=== PATIENT | male | born 1945 | race Caucasian/White ===

== ENCOUNTER → 2024-05-18 | Outpatient (CLI) | payer MEDICARE ==
--- NOTE | 2024-05-19 08:59 | MR ---
EXAMINATION TYPE: MR cspine/tspine/lspine wo con DATE OF EXAM: 05/18/2024 9:52 PM CLINICAL INDICATION: Male, 78 years old with history of D49.7, M50.10, M48.04, M48.062; PHH, Neck, mi d, and low back pain. pain in all extremities. weakness COMPARISON: None TECHNIQUE: Multi planar, multi sequence imaging was performed utilizing: T1-weighted, T2-weighted, a nd turbo inversion recovery imaging of the cervical and lumbar spine. MR contrast: IV Contrast: cc , None. FINDINGS: CERVICAL: Alignment: The cervical vertebral bodies have preserved heights. Alignment is within normal limits gi yogesh patient positioning. Bones: Scattered Modic endplate changes with osteophytes and disc space narrowing. Multilevel degener ative disc disease is noted and most pronounced at the C5-C7 vertebral levels. Cord: The spinal cord is unremarkable with regards to their signal intensity and morphology. Discs: Multilevel disc desiccation is present. C2-C3: No significant disc pathology. The spinal canal is patent. Bilateral facet and uncovertebral joint arthropathy are present with mild right neural foraminal stenosis. The left neural foramen is p atent. C3-C4: No significant disc pathology. The spinal canal is patent. No neural foraminal stenosis. C4-C5: No significant disc pathology. The spinal canal is patent. No neural foraminal stenosis. C5-C6: No significant disc pathology. The spinal canal is patent. No neural foraminal stenosis. C6-C7: Osteophyte displaces the spinal cord cord signal is felt to be maintained. Suspected CSF fluid is anterior on sagittal imaging series 501 image 10 is not appreciated on axial imaging. No signific ant disc pathology. The spinal canal is patent. No neural foraminal stenosis. C7-T1: No significant disc pathology. The spinal canal is patent. No neural foraminal stenosis. Other: None. THORACIC: No evidence significant spinal canal or neural foraminal stenosis. Spinal cord is within no rmal limits. There is mild scoliosis alignment with apex on the right at T6. LUMBAR: Alignment: The lumbar vertebral bodies have preserved heights mild grade 1 anterolisthesis of L4 and L5. Cord: The conus medullaris and the distal spinal cord appear unremarkable with regards to their signa l intensity and morphology. Bones/Discs: Bone signal is within normal limits. Multilevel degenerative disc disease is noted with osteophyte formation disc space narrowing and facet joint arthropathy throughout the spine. T12-L1: No evidence of significant spinal canal stenosis or neural foraminal stenosis. L1-L2: No evidence of significant spinal canal stenosis or neural foraminal stenosis. L2-L3: No evidence of significant spinal canal stenosis or neural foraminal stenosis. L3-L4: Disc bulge and facet joint arthropathy result in mild spinal canal and moderate right and mode rate to severe left with osteophyte displacing the left exiting nerve. Bilateral neural foraminal ever nosis. L4-L5: Disc bulge and facet joint arthropathy result in mild spinal canal and moderate to severe bila teral neural foraminal stenosis. L5-S1: The disc has a rounded posterior morphology without significant spinal canal stenosis. Facet j oint arthropathy with mild to moderate right and and moderate to severe left neural foraminal stenosi s. Other findings: Bilateral probable high T2 signal cyst. IMPRESSION: Cervical: Moderate cervical spine disc degeneration with associated osteoarthritic changes. No significant neur al foraminal or spinal canal stenosis. Osteophyte at C6-C7 displaces the spinal cord. Cord signal octaviano ntained is maintained. Thoracic: Mild to moderate degeneration changes to the thoracic spine with mild scoliosis apex T6 on the right. Lumbar: 1. Mild grade 1 anterolisthesis of L4 and L5. 2. Mild to moderate degeneration of the lumbar spine with neural foraminal stenosis worse at moderat e to severe bilateral L4-L5 and moderate to severe left L5-S1. And L3-L4 osteophyte displacing the le ft exiting nerve.
== END | disposition home or self-care (01) ==
LOC: RADMRIMAIN 20:15
PROVIDERS: ATTEND Surgery
DX: D49.7 Neoplasm of unspecified behavior of endocrine glands and other parts of nervous system
CPT/HCPCS: 72141; 72146; 72148

== ENCOUNTER → 2024-07-24 | Outpatient (CLI) | payer MEDICARE ==
--- NOTE | 2024-07-24 12:36 | XR ---
EXAMINATION TYPE: XR chest 2V DATE OF EXAM: 07/24/2024 12:07 PM COMPARISON: None. CLINICAL INDICATION: Male, 78 years old with history of R06.02 SOB, TECHNIQUE: XR chest 2V view(s) obtained. FINDINGS: The heart size is normal. The pulmonary vasculature is normal. The lungs are clear. IMPRESSION: 1. No acute pulmonary process. [facility], , 07/24/2024 12:33 PM
--- NOTE | 2024-07-25 11:33 | NM ---
EXAMINATION TYPE: NM pul vent and perfuse DATE OF EXAM: 07/24/2024 CLINICAL INDICATION: Male, 78 years old with history of R06.02 SOB; COMPARISON: NONE TECHNIQUE: Utilizing inhalation of 37.6 mCi Tc 99m DTPA aerosol and intravenous injection of 5.25 mC i of Tc 99m MAA, ventilation and perfusion images are acquired post injection in multiple projections . FINDINGS: Normal radiotracer distribution is noted in the lungs. There is no evidence of mismatched defects. No triple matched defects evident. IMPRESSION: Low probability for pulmonary embolism. [facility], , 07/25/2024 11:31 AM
== END | disposition home or self-care (01) ==
LOC: RADNMMAIN 11:43
PROVIDERS: ATTEND Family Medicine
DX: R06.02 Shortness of breath (principal)
CPT/HCPCS: 71046; 78582; A9540; A9567

== ENCOUNTER 2024-10-27 14:04 | Inpatient (IN) | payer MEDICARE ==
[2024-10-27 15:03] LABS: Basophils # (A) 0.1 k/uL (0-0.2); Basophils % (A) 0 %; Eosinophils # (A) 0.1 k/uL (0-0.7); Eosinophils % (A) 0 %; HCT 29.8 % (39.0-53.0); HGB 9.8 gm/dL (13.0-17.5); Hypochromasia Moderate; Lymphocytes # (A) 0.4 k/uL (1.0-4.8); Lymphocytes % (A) 2 %; MCH 35.3 pg (25.0-35.0); MCHC 32.9 g/dL (31.0-37.0); MCV 107.1 fL (80.0-100.0); Macrocytosis Moderate; Mean Platelet Volume 8.7; Monocytes # (A) 0.9 k/uL (0-1.0); Monocytes % (A) 3 %; Neutrophils # (A) 24.4 k/uL (1.3-7.7); Neutrophils % (A) 94 %; Platelet Count 156 k/uL (150-450); RBC 2.78 m/uL (4.30-5.90); RDW 14.7 % (11.5-15.5)
[2024-10-27] MEDS: ONDANSETRON 4 MG/2 ML VIAL IM STA (15:03)
[2024-10-27] MEDS: SODIUM CHLORIDE 0.9% 1,000 ML IV STA (15:03)
[2024-10-27 15:13] LABS: INR 0.9 (<1.2); Partial Thromboplastin Time 22.8 sec (22.0-30.0); Prothrombin Time 10.2 sec (10.0-12.5)
[2024-10-27 15:21] LABS: ALT 32 U/L (4-49); AST 92 U/L (17-59); African American GFR (CKD) 24 (>60 ml/min/1.73 sqM); Albumin 3.5 g/dL (3.5-5.0); Alkaline Phosphatase 47 U/L (38-126); Anion Gap 16 mmol/L; Blood Urea Nitrogen 48 mg/dL (9-20); Calcium 8.8 mg/dL (8.4-10.2); Carbon Dioxide 11 mmol/L (22-30); Chloride 114 mmol/L (98-107); Glucose 171 mg/dL (74-99); Magnesium 1.7 mg/dL (1.6-2.3); Non-African American GFR(CKD) 21 (>60 ml/min/1.73 sqM); Potassium 4.5 mmol/L (3.5-5.1); Sodium 141 mmol/L (137-145); Total Bilirubin 0.7 mg/dL (0.2-1.3); Total Protein 5.9 g/dL (6.3-8.2)
[2024-10-27 15:37] LABS: Influenza A Not Detected (Not Detectd); Influenza B Not Detected (Not Detectd); RSV Not Detected (Not Detectd)
[2024-10-27 15:58] LABS: Appearance,Urine Cloudy (Clear); Bacteria,Urine Few /hpf; Bilirubin,Urine Negative (Negative); Blood,Urine Large (Negative); Color,Urine Yellow; Glucose,Urine (UA) Negative (Negative); Ketones,Urine Negative (Negative); Leukocyte Esterase,Urine Large (Negative); Mucus,Urine Few /hpf; Nitrite,Urine Positive (Negative); PH, Urine 5.5 (5.0-8.0); Protein,Urine 1+ (Negative); RBC,Urine 2 /hpf (0-5); Specific Gravity,Urine 1.019 (1.001-1.035); Squamous Epithelial Cell,Urine <1 /hpf (0-4); Urobilinogen,Urine <2.0 mg/dL (<2.0); WBC,Urine >182 /hpf (0-5)
--- NOTE | 2024-10-27 16:04 | XR ---
EXAMINATION TYPE: XR chest 2V DATE OF EXAM: 10/27/2024 3:27 PM COMPARISON: Chest radiographs from 07/24/2024 CLINICAL INDICATION: Male, 78 years old with history of Weakness; TECHNIQUE: XR chest 2V Frontal and lateral views of the chest. FINDINGS: Lungs/Pleura: There is no evidence of pleural effusion, focal consolidation, or pneumothorax. Pulmonary vascularity: Unremarkable. Heart/mediastinum: Cardiomediastinal silhouette is unremarkable. Musculoskeletal: No acute osseous pathology. IMPRESSION: No acute cardiopulmonary disease/process. [facility], , 10/27/2024 4:02 PM
[2024-10-27] MEDS ORDERED: VANCOMYCIN IV PER PHARMACY 1 EACH MISC MISCELLANE PRN (16:07)
[2024-10-27] MEDS: CEFEPIME 2 GM in SODIUM CHLORIDE 0.9% 100 ML IVPB SCH (16:27)
[2024-10-27] MEDS: LACTATED RINGERS 1,000 ML BAG IV STA (16:55)
[2024-10-27] MEDS: LACTATED RINGERS 1,000 ML IV ONE (16:57)
[2024-10-27] MEDS: VANCOMYCIN 1,500 MG in SODIUM CHLORIDE 0.9% 500 ML 500 ML IVPB STA (17:15)
--- NOTE | 2024-10-27 17:42 | CT ---
EXAMINATION TYPE: CT abdomen pelvis wo con DATE OF EXAM: 10/27/2024 5:19 PM COMPARISON: None CLINICAL INDICATION: Male, 78 years old with history of sepsis, eval for renal stone/bladder or renal path; Sepsis, eval for renal stone/bladder or renal path. TECHNIQUE: Axial CT abdomen pelvis wo con;Sagittal and coronal reformats were created on a separate workstation. Contrast used: mL of , (none if empty) Oral contrast used: without Oral Contrast (none if empty) CT DLP: 624.2 mGycm, Automated exposure control for dose reduction was used. FINDINGS: LOWER CHEST: Unremarkable ABDOMEN LIVER: Unremarkable GALLBLADDER AND BILE DUCTS: Unremarkable. PANCREAS: Unremarkable. SPLEEN: Unremarkable. ADRENAL GLANDS: Unremarkable. KIDNEYS AND URETERS: Nonobstructing left 5 mm calculus. No obstructing calculus visualized. No right renal calculi. Postsurgical/treatment changes right kidney with calcification and fat density along t he lateral aspect. Vascular calcifications in the renal sinus bilaterally. Right probable renal cyst. PELVIS BLADDER: No evidence for wall thickening or mass given limitations of exam. Fat stranding changes joseph und the urinary bladder is mild wall thickening. REPRODUCTIVE: Prostate is enlarged in size measuring 5.1 cm in transverse dimension. ABDOMEN & PELVIS STOMACH AND BOWEL: No evidence of bowel obstruction. Lower abdominal ostomy. Postsurgical changes sig moid colon with suture in place. Scattered colonic diverticula. PERITONEUM/RETROPERITONEUM: No evidence of pneumoperitoneum or free fluid. VASCULATURE: Moderate atherosclerotic calcifications are present throughout the abdominal aorta and i ts branches. No evidence of aortic aneurysm. MUSCULOSKELETAL: No acute osseous abnormalities. Moderate disc degeneration changes are present throu ghout the thoracolumbar spine. LYMPH NODES: No gross evidence for lymphadenopathy. SOFT TISSUE/ABDOMINAL WALL: Fat-containing inguinal hernias bilaterally. IMPRESSION: 1. Cystitis with fat stranding changes around the urinary bladder and wall thickening. 2. Nonobstructing left renal calculus. 3. Prostatomegaly, correlate serum PSA. 4. Colonic diverticulosis. 5. Suspected posttreatment changes right kidney. 6. Right lower abdomen ostomy without evidence for obstruction. [facility], , 10/27/2024 5:40 PM
[2024-10-27] MEDS ORDERED: NALOXONE 0.4 MG/ML 1 ML VIAL IV PRN (17:44)
[2024-10-27] MEDS ORDERED: ONDANSETRON 4 MG/2 ML VIAL IVP PRN (17:44)
--- NOTE | 2024-10-27 17:44 | ED ---
General Adult HPI - General Chief complaint: Weakness Stated complaint: Weakness Time Seen by Provider: 10/27/24 14:06 Source: patient, EMS, RN notes reviewed, old records reviewed Mode of arrival: EMS - History of Present Illness Initial comments: Patient is a 25-year-old male with past medical history remarkable for colon cancer, kidney cancer, CKD with an ileostomy. Presents over concern for generalized weakness. Became severe today. Was seen yesterday and received IV infusions of normal saline for his CKD. States that today he felt more weak. Has been having some dysuria and discomfort with urination. States this is not atypical for him. Denies chest pain, cough, fevers, chills. Denies any significant abdominal pain otherwise. States ostomy bag has been acting appropriately. Has no other acute complaints. Presents for weakness. States he did not fall but lowered himself to the ground. Did not hit his head. Did not lose consciousness. 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 - Related Data Home Medications Medication Instructions Recorded Confirmed Pregabalin 25 mg PO TID 10/26/24 10/27/24 allopurinoL 300 mg PO DAILY 10/26/24 10/27/24 diazePAM [Valium] 5 mg PO TID PRN 10/26/24 10/27/24 Acetaminophen [Tylenol 8 Hour] 1,300 mg PO TID 10/27/24 10/27/24 Sodium Bicarbonate Tab 1,300 mg PO TID 10/27/24 10/27/24 cefuroxime axetiL [Ceftin] 500 mg PO BID 10/27/24 10/27/24 Allergies Allergy/AdvReac Type Severity Reaction Status Date / Time No Known Allergies Allergy Verified 10/27/24 19:42 Review of Systems ROS Statement: Those systems with pertinent positive or pertinent negative responses have been documented in the HPI. Review of Systems: CONST: Denies fever EYES: Denies blurry vision ENT: Denies nasal congestion C/V: Denies Chest pain RESP: Denies shortness of breath GI: Denies abdominal pain : Endorses dysuria SKIN: Denies rash. MSK: Denies joint pain. NEURO: Denies headache ROS Other: All systems not noted in ROS Statement are negative. Past Medical History Past Medical History: Renal Disease Additional Past Medical History / Comment(s): metabolic acidosis, renal failure, tremors Past Surgical History: Bowel Resection, Orthopedic Surgery Additional Past Surgical History / Comment(s): ileostomy Smoking Status: Former smoker Past Alcohol Use History: None Reported Past Drug Use History: None Reported General Exam - General Exam Comments Initial Comments: General: Appears in no acute distress. HEAD: Normal with no signs of head trauma. EYES: PERRLA, EOMI, conjunctiva normal, no discharge. ENT: Hearing grossly intact, normal oropharynx. Dry mucous membranes. RESPIRATORY: Clear breath sounds bilaterally. No wheezes, rales, or rhonchi. C/V: Regular rate and rhythm. S1 and S2 auscultated, no edema, peripheral pulses 2+ and intact throughout ABD: Abd is soft, nontender, nondistended. Ostomy bag in place and appears to be draining appropriately. EXT: Normal range of motion, no obvious deformity SKIN: No rashes or lesions observed on exposed skin. NEURO: Alert and oriented x 4. Course Vital Signs 10/27/24 10/27/24 10/27/24 14:06 18:02 19:00 Temperature 98.2 F Pulse Rate 90 98 105 H Respiratory 18 18 20 Rate Blood Pressure 120/66 118/60 148/86 O2 Sat by Pulse 99 97 Oximetry 10/27/24 10/27/24 10/27/24 19:45 20:41 21:44 Temperature Pulse Rate 116 H 120 H 118 H Respiratory 18 28 H 26 H Rate Blood Pressure 146/76 113/80 146/50 O2 Sat by Pulse 96 93 L 96 Oximetry Procedures - Sepsis Sepsis Focused Exam #1 Time Sepsis Criteria Met: 16:07 Sepsis Focused Exam Date: 10/27/24 Sepsis Focused Exam Time: 17:44 Sepsis Focused Exam Complete: Yes Vital Signs & RN Notes Reviewed: Yes Capillary Refill: > 2 Seconds: Fingers, Toes Peripheral Pulses: Normal: Radial (R), Radial (L) Skin Color: Normal for Patient Respiratory Exam: normal lung sounds Cardiovascular Exam: regular rate, normal rhythm Medical Decision Making - Medical Decision Making Was pt. sent in by a medical professional or institution (, PA, DOUBLE BACK OPERATOR, urgent care, hospital, or intermediate...) When possible be specific @ -No Did you speak to anyone other than the patient for history (EMS, parent, family, police, friend...)? What history was obtained from this source @ -No Did you review nursing and triage notes (agree or disagree)? Why? @ -I reviewed and agree with nursing and triage notes Were old charts reviewed (outside hosp., previous admission, EMS record, old EKG, old radiological studies, urgent care reports/EKG's, intermediate records)? Report findings @ -No old charts were reviewed Differential Diagnosis (chest pain, altered mental status, abdominal pain women, abdominal pain men, vaginal bleeding, weakness, fever, dyspnea, syncope, headache, dizziness, GI bleed, back pain, seizure, CVA, palpatations, mental health, musculoskeletal)? @ -Differential Weakness: Hypoglycemia, shock, sepsis, hyponatremia, anemia, infection, CA, ETOH, adverse medicine reaction, overdose, stroke, this is not meant to be an all-inclusive list. EKG interpreted by me (3pts min.). @ -As above X-rays interpreted by me (1pt min.). @ -Chest x-ray reveals no obvious acute cardiopulmonary process. CT interpreted by me (1pt min.). @ -CT abdomen pelvis reveals an intrarenal left kidney stone, prostatomegaly, as well as cystitis. No other obvious acute process. U/S interpreted by me (1pt. min.). @ -None done What testing was considered but not performed or refused? (CT, X-rays, U/S, labs)? Why? @ -None What meds were considered but not given or refused? Why? @ -None Did you discuss the management of the patient with other professionals (professionals i.e. , PA, DOUBLE BACK OPERATOR, lab, RT, psych nurse, sr. social media & mobile manager, sheet finisher, teacher, chief science officer, director of casework services)? Give summary @ -Discussed with the admitting provider, Dr. Bryan who accepted the admission. Was smoking cessation discussed for >3mins.? @ -No Was critical care preformed (if so, how long)? @ -Yes, 31 minutes. Were there social determinants of health that impacted care today? How? (Homelessness, low income, unemployed, alcoholism, drug addiction, transportation, low edu. Level, literacy, decrease access to med. care, residential, rehab)? @ -No Was there de-escalation of care discussed even if they declined (Discuss DNR or withdrawal of care, Hospice)? DNR status @ -No What co-morbidities impacted this encounter? (DM, HTN, Smoking, COPD, CAD, Cancer, CVA, ARF, Chemo, Hep., AIDS, mental health diagnosis, sleep apnea, morbid obesity)? @ -CKD Was patient admitted / discharged? Hospital course, mention meds given and route, prescriptions, significant lab abnormalities, going to OR and other pertinent info. @ -Patient presents with weakness, as well as some urinary complaints. We will obtain infectious labs. Vitals are within acceptable limits. Patient will be administered IV fluids at this time. No other acute complaints at this time. EKG showed no signs of acute ischemia. Chest x-ray unremarkable. CT abdomen pelvis obtained without contrast which revealed acute cystitis, but no other obvious acute intra-abdominal process at this time. Labs returned remarkable for leukocytosis of 26, hemoglobin of 9.8, metabolic acidosis with a lactic acid of 4.0, urinalysis positive for UTI. Patient has CKD but renal function is relatively at baseline. Discussed results with patient. Patient met sepsis criteria at 1607. Started on broad-spectrum antibiotics, IV fluids to meet the 30 cc/kg fluid bolus requirements. Received a total of 2 L bolus and started on maintenance infusion. Urine culture and blood culture sent. Discussed results with patient. Vital signs remained within acceptable limits. He was in agreement plan for admission at this time. Nephrology will be consulted. Discussed with the admitting provider, Dr. Bryan who accepted the admission. Undiagnosed new problem with uncertain prognosis? @ -No Drug Therapy requiring intensive monitoring for toxicity (Heparin, Nitro, Insulin, Cardizem)? @ -No Were any procedures done? @ -No Diagnosis/symptom? @ -Sepsis secondary to UTI, KONRAD, CKD, dehydration Acute, or Chronic, or Acute on Chronic? @ -Acute Uncomplicated (without systemic symptoms) or Complicated (systemic symptoms)? @ -Complicated Side effects of treatment? @ -No Exacerbation, Progression, or Severe Exacerbation? @ -No Poses a threat to life or bodily function? How? (Chest pain, USA, CA, pneumonia, PE, COPD, DKA, ARF, appy, cholecystitis, CVA, Diverticulitis, Homicidal, Suicid al, threat to staff... and all critical care pts) @ -Yes - Lab Data Result diagrams: 10/27/24 14:42 10/27/24 14:42 Lab Results 10/27/24 10/27/24 10/27/24 Range/Units 14:42 14:42 14:42 WBC 26.0 H (3.8-10.6) k/uL RBC 2.78 L (4.30-5.90) m/uL Hgb 9.8 L (13.0-17.5) gm/dL Hct 29.8 L (39.0-53.0) % MCV 107.1 H (80.0-100.0) fL MCH 35.3 H (25.0-35.0) pg MCHC 32.9 (31.0-37.0) g/dL RDW 14.7 (11.5-15.5) % Plt Count 156 (150-450) k/uL MPV 8.7 Neutrophils % 94 % Lymphocytes % 2 % Monocytes % 3 % Eosinophils % 0 % Basophils % 0 % Neutrophils # 24.4 H (1.3-7.7) k/uL Lymphocytes # 0.4 L (1.0-4.8) k/uL Monocytes # 0.9 (0-1.0) k/uL Eosinophils # 0.1 (0-0.7) k/uL Basophils # 0.1 (0-0.2) k/uL Hypochromasia Moderate Macrocytosis Moderate PT 10.2 (10.0-12.5) sec INR 0.9 (<1.2) APTT 22.8 (22.0-30.0) sec Sodium 141 (137-145) mmol/L Potassium 4.5 (3.5-5.1) mmol/L Chloride 114 H (98-107) mmol/L Carbon Dioxide 11 L (22-30) mmol/L Anion Gap 16 mmol/L BUN 48 H (9-20) mg/dL Creatinine 2.74 H (0.66-1.25) mg/dL Est GFR (CKD-EPI)AfAm 24 (>60 ml/min/1.73 sqM) Est GFR (CKD-EPI)NonAf 21 (>60 ml/min/1.73 sqM) Glucose 171 H (74-99) mg/dL Lactic Ac Sepsis Rflx Plasma Lactic Acid Darshan (0.7-2.0) mmol/L Calcium 8.8 (8.4-10.2) mg/dL Magnesium 1.7 (1.6-2.3) mg/dL Total Bilirubin 0.7 (0.2-1.3) mg/dL AST 92 H (17-59) U/L ALT 32 (4-49) U/L Alkaline Phosphatase 47 (38-126) U/L Total Protein 5.9 L (6.3-8.2) g/dL Albumin 3.5 (3.5-5.0) g/dL Urine Color Urine Appearance (Clear) Urine pH (5.0-8.0) Ur Specific Pandora (1.001-1.035) Urine Protein (Negative) Urine Glucose (UA) (Negative) Urine Ketones (Negative) Urine Blood (Negative) Urine Nitrite (Negative) Urine Bilirubin (Negative) Urine Urobilinogen (<2.0) mg/dL Ur Leukocyte Esterase (Negative) Urine RBC (0-5) /hpf Urine WBC (0-5) /hpf Urine WBC Clumps (None) /hpf Ur Squamous Epith Cells (0-4) /hpf Urine Bacteria (None) /hpf Urine Mucus (None) /hpf Influenza Type A (PCR) (Not Detectd) Influenza Type B (PCR) (Not Detectd) RSV (PCR) (Not Detectd) SARS-CoV-2 (PCR) (Not Detectd) 10/27/24 10/27/24 10/27/24 Range/Units 14:42 14:42 15:20 WBC (3.8-10.6) k/uL RBC (4.30-5.90) m/uL Hgb (13.0-17.5) gm/dL Hct (39.0-53.0) % MCV (80.0-100.0) fL MCH (25.0-35.0) pg MCHC (31.0-37.0) g/dL RDW (11.5-15.5) % Plt Count (150-450) k/uL MPV Neutrophils % % Lymphocytes % % Monocytes % % Eosinophils % % Basophils % % Neutrophils # (1.3-7.7) k/uL Lymphocytes # (1.0-4.8) k/uL Monocytes # (0-1.0) k/uL Eosinophils # (0-0.7) k/uL Basophils # (0-0.2) k/uL Hypochromasia Macrocytosis PT (10.0-12.5) sec INR (<1.2) APTT (22.0-30.0) sec Sodium (137-145) mmol/L Potassium (3.5-5.1) mmol/L Chloride (98-107) mmol/L Carbon Dioxide (22-30) mmol/L Anion Gap mmol/L BUN (9-20) mg/dL Creatinine (0.66-1.25) mg/dL Est GFR (CKD-EPI)AfAm (>60 ml/min/1.73 sqM) Est GFR (CKD-EPI)NonAf (>60 ml/min/1.73 sqM) Glucose (74-99) mg/dL Lactic Ac Sepsis Rflx Plasma Lactic Acid Darshan 4.0 H* (0.7-2.0) mmol/L Calcium (8.4-10.2) mg/dL Magnesium (1.6-2.3) mg/dL Total Bilirubin (0.2-1.3) mg/dL AST (17-59) U/L ALT (4-49) U/L Alkaline Phosphatase (38-126) U/L Total Protein (6.3-8.2) g/dL Albumin (3.5-5.0) g/dL Urine Color Yellow Urine Appearance Cloudy (Clear) Urine pH 5.5 (5.0-8.0) Ur Specific Pandora 1.019 (1.001-1.035) Urine Protein 1+ H (Negative) Urine Glucose (UA) Negative (Negative) Urine Ketones Negative (Negative) Urine Blood Large H (Negative) Urine Nitrite Positive (Negative) Urine Bilirubin Negative (Negative) Urine Urobilinogen <2.0 (<2.0) mg/dL Ur Leukocyte Esterase Large H (Negative) Urine RBC 2 (0-5) /hpf Urine WBC >182 H (0-5) /hpf Urine WBC Clumps Occasional H (None) /hpf Ur Squamous Epith Cells <1 (0-4) /hpf Urine Bacteria Few H (None) /hpf Urine Mucus Few H (None) /hpf Influenza Type A (PCR) Not Detected (Not Detectd) Influenza Type B (PCR) Not Detected (Not Detectd) RSV (PCR) Not Detected (Not Detectd) SARS-CoV-2 (PCR) Not Detected (Not Detectd) 10/27/24 Range/Units 15:50 WBC (3.8-10.6) k/uL RBC (4.30-5.90) m/uL Hgb (13.0-17.5) gm/dL Hct (39.0-53.0) % MCV (80.0-100.0) fL MCH (25.0-35.0) pg MCHC (31.0-37.0) g/dL RDW (11.5-15.5) % Plt Count (150-450) k/uL MPV Neutrophils % % Lymphocytes % % Monocytes % % Eosinophils % % Basophils % % Neutrophils # (1.3-7.7) k/uL Lymphocytes # (1.0-4.8) k/uL Monocytes # (0-1.0) k/uL Eosinophils # (0-0.7) k/uL Basophils # (0-0.2) k/uL Hypochromasia Macrocytosis PT (10.0-12.5) sec INR (<1.2) APTT (22.0-30.0) sec Sodium (137-145) mmol/L Potassium (3.5-5.1) mmol/L Chloride (98-107) mmol/L Carbon Dioxide (22-30) mmol/L Anion Gap mmol/L BUN (9-20) mg/dL Creatinine (0.66-1.25) mg/dL Est GFR (CKD-EPI)AfAm (>60 ml/min/1.73 sqM) Est GFR (CKD-EPI)NonAf (>60 ml/min/1.73 sqM) Glucose (74-99) mg/dL Lactic Ac Sepsis Rflx Y Plasma Lactic Acid Darshan (0.7-2.0) mmol/L Calcium (8.4-10.2) mg/dL Magnesium (1.6-2.3) mg/dL Total Bilirubin (0.2-1.3) mg/dL AST (17-59) U/L ALT (4-49) U/L Alkaline Phosphatase (38-126) U/L Total Protein (6.3-8.2) g/dL Albumin (3.5-5.0) g/dL Urine Color Urine Appearance (Clear) Urine pH (5.0-8.0) Ur Specific Pandora (1.001-1.035) Urine Protein (Negative) Urine Glucose (UA) (Negative) Urine Ketones (Negative) Urine Blood (Negative) Urine Nitrite (Negative) Urine Bilirubin (Negative) Urine Urobilinogen (<2.0) mg/dL Ur Leukocyte Esterase (Negative) Urine RBC (0-5) /hpf Urine WBC (0-5) /hpf Urine WBC Clumps (None) /hpf Ur Squamous Epith Cells (0-4) /hpf Urine Bacteria (None) /hpf Urine Mucus (None) /hpf Influenza Type A (PCR) (Not Detectd) Influenza Type B (PCR) (Not Detectd) RSV (PCR) (Not Detectd) SARS-CoV-2 (PCR) (Not Detectd) - EKG Data -: EKG Interpreted by Me EKG Comments: 12-lead Electrocardiogram Interpretation Note EKG was reviewed and interpreted by myself. 12-lead ECG performed at 1437 is interpreted by me as revealing normal sinus rhythm at a rate of 94 beats per minute. Hamlin is normal. CO interval is prolonged with first-degree AV block at a rate of 47 ms, QRS duration is 103 ms, QTc is 391 ms.. There were no ST or T wave abnormalities to suggest myocardial ischemia or injury. R wave progression across the precordium was satisfactory. By my interpretation this EKG is non-diagnostic for acute ischemia. Critical Care Time Critical Care Time: Yes Total Critical Care Time: 31 Disposition Clinical Impression: Sepsis, UTI (urinary tract infection), CKD (chronic kidney disease), Dehydration Disposition: ADMITTED IP TO THIS HOSP Condition: Serious Time of Disposition: 17:40
[2024-10-27] MEDS: CEFEPIME 1 GM in SODIUM CHLORIDE 0.9% 50 ML IVPB STA (18:21)
[2024-10-28] MEDS: DEXTROSE 5% IN WATER 1,000 ML with SODIUM BICARB (1 MEQ/ML) 100 ML IV SCH (00:13)
[2024-10-28] MEDS: ACETAMINOPHEN TAB 325 MG TAB PO PRN (04:56)
--- NOTE | 2024-10-28 07:49 | P.HPIM ---
History of Present Illness This is a pleasant 78 years old male with past medical history of multiple medical problems as below. 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 No headache dizziness weakness or numbness in 1 limb. He has chronically loose bowel movement in his ileostomy. Yesterday he vomited twice He denies smoking alcohol or illicit drugs Vitals reviewed, patient was tachycardic, tachypneic, he developed fever of 101 this morning. He has leukocytosis 26,000, hemoglobin 9.8, creatinine 2.6 and 2.7. Bilirubin 1.9. Carbon dioxide is 11 Lactic acid elevated at 1 4 came down to 1.3 CT of the abdomen pelvis showing cystitis with fat stranding and enlarged prostate correlate for PSA. Patient informed of the need to follow-up with urologist Right abdominal ostomy with no evidence of obstruction Chest x-ray is negative Blood cultures pending Patient received cefepime x 1 dose and IV vancomycin Review of Systems Review of systems CONSTITUTIONAL: No fever, no malaise, no fatigue. HEENT: No recent visual problems or hearing problems. Denied any sore throat. CARDIOVASCULAR: No orthopnea, PND, no palpitations, no syncope. PULMONARY: No shortness of breath, no cough, no hemoptysis. GASTROINTESTINAL: No diarrhea, no nausea, no abdominal pain. Normoactive bowel sounds. NEUROLOGICAL: No headaches, no weakness, no numbness. HEMATOLOGICAL: Denies any bleeding or petechiae. -GENITOURINARY: As above MUSCULOSKELETAL/RHEUMATOLOGICAL: Denies any joint pain, swelling, or any muscle pain. ENDOCRINE: Denies any polyuria or polydipsia. Past Medical History Past Medical History: Renal Disease Additional Past Medical History / Comment(s): metabolic acidosis, renal failure, tremors Past Surgical History: Bowel Resection, Orthopedic Surgery Additional Past Surgical History / Comment(s): ileostomy Smoking Status: Former smoker Past Alcohol Use History: None Reported Past Drug Use History: None Reported Medications and Allergies Home Medications Medication Instructions Recorded Confirmed Type Pregabalin 25 mg PO TID 10/26/24 10/27/24 History allopurinoL 300 mg PO DAILY 10/26/24 10/27/24 History diazePAM [Valium] 5 mg PO TID PRN 10/26/24 10/27/24 History Acetaminophen [Tylenol 8 Hour] 1,300 mg PO TID 10/27/24 10/27/24 History Sodium Bicarbonate Tab 1,300 mg PO TID 10/27/24 10/27/24 History cefuroxime axetiL [Ceftin] 500 mg PO BID 10/27/24 10/27/24 History Allergies Allergy/AdvReac Type Severity Reaction Status Date / Time No Known Allergies Allergy Verified 10/27/24 19:42 Physical Exam Vitals: Vital Signs Temp Pulse Resp BP Pulse Ox 10/28/24 06:54 99.9 F H 10/28/24 06:46 16 105/49 93 L 10/28/24 04:55 101.1 F H 10/28/24 04:41 105 H 18 123/60 97 10/28/24 02:27 101 H 18 116/58 95 10/28/24 00:00 110 H 20 106/80 95 10/27/24 22:38 111 H 20 100/70 94 L 10/27/24 21:44 118 H 26 H 146/50 96 10/27/24 20:41 120 H 28 H 113/80 93 L 10/27/24 19:45 116 H 18 146/76 96 10/27/24 19:00 105 H 20 148/86 10/27/24 18:02 98 18 118/60 97 10/27/24 14:06 98.2 F 90 18 120/66 99 -GENERAL: The patient is alert and oriented x3, not in any acute distress. Well developed, well nourished. Generally weak HEENT: Pupils are round and equally reacting to light. EOMI. No scleral icterus. No conjunctival pallor. Normocephalic, atraumatic. No pharyngeal erythema. No thyromegaly. CARDIOVASCULAR: S1 and S2 present. No murmurs, rubs, or gallops. PULMONARY: Chest is clear to auscultation, no wheezing , no crackles. -ABDOMEN: Soft, suprapubic tenderness, nondistended, normoactive bowel sounds. No palpable organomegaly. RLQ ileostomy MUSCULOSKELETAL: No joint swelling or deformity. EXTREMITIES: No cyanosis, clubbing, or pedal edema. NEUROLOGICAL: Gross neurological examination did not reveal any focal deficits. SKIN: No rashes. no petechiae. Results CBC & Chem 7: 10/27/24 14:42 10/27/24 14:42 Labs: Abnormal Lab Results - Last 24 Hours (Table) 10/27/24 10/27/24 10/27/24 Range/Units 14:42 14:42 14:42 WBC 26.0 H (3.8-10.6) k/uL RBC 2.78 L (4.30-5.90) m/uL Hgb 9.8 L (13.0-17.5) gm/dL Hct 29.8 L (39.0-53.0) % MCV 107.1 H (80.0-100.0) fL MCH 35.3 H (25.0-35.0) pg Neutrophils # 24.4 H (1.3-7.7) k/uL Lymphocytes # 0.4 L (1.0-4.8) k/uL Chloride 114 H (98-107) mmol/L Carbon Dioxide 11 L (22-30) mmol/L BUN 48 H (9-20) mg/dL Creatinine 2.74 H (0.66-1.25) mg/dL Glucose 171 H (74-99) mg/dL Plasma Lactic Acid Darshan 4.0 H* (0.7-2.0) mmol/L AST 92 H (17-59) U/L Total Protein 5.9 L (6.3-8.2) g/dL Urine Protein (Negative) Urine Blood (Negative) Ur Leukocyte Esterase (Negative) Urine WBC (0-5) /hpf Urine WBC Clumps (None) /hpf Urine Bacteria (None) /hpf Urine Mucus (None) /hpf 10/27/24 Range/Units 15:20 WBC (3.8-10.6) k/uL RBC (4.30-5.90) m/uL Hgb (13.0-17.5) gm/dL Hct (39.0-53.0) % MCV (80.0-100.0) fL MCH (25.0-35.0) pg Neutrophils # (1.3-7.7) k/uL Lymphocytes # (1.0-4.8) k/uL Chloride (98-107) mmol/L Carbon Dioxide (22-30) mmol/L BUN (9-20) mg/dL Creatinine (0.66-1.25) mg/dL Glucose (74-99) mg/dL Plasma Lactic Acid Darshan (0.7-2.0) mmol/L AST (17-59) U/L Total Protein (6.3-8.2) g/dL Urine Protein 1+ H (Negative) Urine Blood Large H (Negative) Ur Leukocyte Esterase Large H (Negative) Urine WBC >182 H (0-5) /hpf Urine WBC Clumps Occasional H (None) /hpf Urine Bacteria Few H (None) /hpf Urine Mucus Few H (None) /hpf Assessment and Plan Assessment: Severe sepsis with leukocytosis and fever and tachypnea Acute UTI and cystitis secondary to gram-negative bacilli Generalized weakness secondary to above Acute kidney injury, with possible baseline of chronic kidney disease History of ileal tumor, noninvasive status post ileostomy Chronic anemia Plan: Continue with antibiotics ceftriaxone and vancomycin Continue with sodium bicarb Follow-up culture results Nephrology team consult We recommend urology follow-up as an outpatient, informed patient with risk of cancer and the importance of follow-up Labs and medication were reviewed.. Continue same treatment. Continue with symptomatic treatment. Resume home medication. Monitor labs and vitals. DVT and GI prophylaxis. Further recommendations as per clinical course of the patient DVT prophylaxis: Subcutaneous heparin GI Prophylaxis: Pepcid PT/OT: Pending Prognosis is guarded
[2024-10-28 08:07] LABS: Glucose,Whole Blood 98 mg/dL (70-110)
[2024-10-28] MEDS: ACETAMINOPHEN TAB 325 MG TAB PO SCH (08:35)
[2024-10-28] MEDS: allopurinoL 300 MG TAB PO SCH (09:01)
[2024-10-28] MEDS: SODIUM BICARBONATE TAB 650 MG TAB PO SCH (09:02)
[2024-10-28] MEDS: HEPARIN SODIUM,PORCINE 5,000 UNIT/ML 1 ML VIAL SQ SCH (09:02)
[2024-10-28] MEDS: FAMOTIDINE 20 MG/2 ML VIAL IV SCH (09:45)
[2024-10-28] MEDS: PREGABALIN 25 MG CAP PO SCH (10:02)
--- NOTE | 2024-10-28 11:37 | P.NPCON ---
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 He is admitted to the hospital with history of extreme weakness while he was in the restroom and could not get up from the floor after he fell. History of colon resection and ileostomy in April 2024 with plans for possible connection of the bowel and removal of ileostomy down the road. Patient denied any history of fever or chills. He does have underlying history of chronic kidney disease stage IIIb with baseline creatinine 1.7 to 1.9 mg/dL. Patient does not follow-up with a mdm sr. Serum creatinine was 2.74 yesterday with previous creatinine of 1.9 on 04/09/2024 UA is suggestive of UTI. Culture not noted. Patient also reported increased output from the ileostomy over the last few days. Blood pressure has been on the lower side. CT of the abdomen shows nonobstructive left 5 mm calculus. No hydronephrosis Past Medical History Past Medical History: Renal Disease Additional Past Medical History / Comment(s): metabolic acidosis, renal failure, tremors History of Any Multi-Drug Resistant Organisms: None Reported Past Surgical History: Bowel Resection, Orthopedic Surgery Additional Past Surgical History / Comment(s): ileostomy Past Anesthesia/Blood Transfusion Reactions: No Reported Reaction Smoking Status: Former smoker Past Alcohol Use History: None Reported Past Drug Use History: None Reported - Past Family History Mother Additional Family Medical History / Comment(s): mom liver issues Medications and Allergies Home Medications Medication Instructions Recorded Confirmed Type Pregabalin 25 mg PO TID 10/26/24 10/27/24 History allopurinoL 300 mg PO DAILY 10/26/24 10/27/24 History diazePAM [Valium] 5 mg PO TID PRN 10/26/24 10/27/24 History Acetaminophen [Tylenol 8 Hour] 1,300 mg PO TID 10/27/24 10/27/24 History Sodium Bicarbonate Tab 1,300 mg PO TID 10/27/24 10/27/24 History cefuroxime axetiL [Ceftin] 500 mg PO BID 10/27/24 10/27/24 History Allergies Allergy/AdvReac Type Severity Reaction Status Date / Time No Known Allergies Allergy Verified 10/27/24 19:42 Physical Exam Vitals: Vital Signs Temp Pulse Pulse Resp BP BP Pulse Ox 10/28/24 08:26 98.2 F 95 16 115/63 99 10/28/24 06:54 99.9 F H 10/28/24 06:46 16 105/49 93 L 10/28/24 04:55 101.1 F H 10/28/24 04:41 105 H 18 123/60 97 10/28/24 02:27 101 H 18 116/58 95 10/28/24 00:00 110 H 20 106/80 95 10/27/24 22:38 111 H 20 100/70 94 L 10/27/24 21:44 118 H 26 H 146/50 96 10/27/24 20:41 120 H 28 H 113/80 93 L 10/27/24 19:45 116 H 18 146/76 96 10/27/24 19:00 105 H 20 148/86 10/27/24 18:02 98 18 118/60 97 10/27/24 14:06 98.2 F 90 18 120/66 99 Intake and Output 10/27/24 10/28/24 10/28/24 22:59 06:59 14:59 Intake Total 240 Balance 240 Intake: Oral 240 Other: Weight 76.204 kg Patient is awake, comfortable, no acute distress. 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 Acute kidney injury ATN secondary to volume depletion and some degree of hypotension. UA suggestive of UTI. No evidence of hydronephrosis on CT of the abdomen currently maintained on IV fluids. 2. Chronic kidney disease stage IIIb with baseline creatinine 1.7 to 1.9 mg/dL. Previous history of use of NSAIDs and history of nephrotoxicity from previous use of ampicillin. 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 3. Nonobstructive left 5 mm calculus 4. Severe metabolic acidosis secondary to GI fluid loss from the ileostomy amie ng with lactic acidosis 5. UTI maintain on antibiotics 6. Sepsis from UTI Plan: Continue with IV antibiotics Change bicarb drip to D5W with 150 mEq of sodium bicarb Continue with oral sodium bicarb. Repeat labs in a.m. Continue to avoid nephrotoxic agents. Consider decreasing dose of acetaminophen. Thank you for the consultation. We will continue to follow the patient with you during his hospitalization.
[2024-10-28 11:56] LABS: HCT 26.1 % (39.6-50.0); HGB 8.4 g/dL (13.0-17.0); MCH 33.9 pg (27.0-32.0); MCHC 32.2 g/dL (32.0-37.0); MCV 105.2 FL (80.0-97.0); Mean Platelet Volume 11.3 FL (9.5-12.2); NRBC Per 100 WBC 0 X 10*3/uL (0.00-0.01); Platelet Count 131 X 10*3/uL (140-440); RBC 2.48 X 10*6/uL (4.40-5.60); RDW 15.4 % (11.5-14.5)
[2024-10-28 11:59] LABS: BUN/Creat Ratio 14.81 Ratio (12.00-20.00); Blood Urea Nitrogen 47.4 mg/dL (9.0-27.0); Glucose 104 mg/dL (70-110)
[2024-10-28 12:00] LABS: ALT 120 U/L (10-49); AST 644 U/L (14-35); Albumin 3.2 g/dL (3.8-4.9); Albumin/Globulin Ratio 1.88 Ratio (1.60-3.17); Alkaline Phosphatase 52 U/L (41-126); Calcium 8.1 mg/dL (8.7-10.3); Chloride 115 mmol/L (96-109); Globulin 1.7 g/dL (1.6-3.3); Potassium 4.2 mmol/L (3.5-5.5); Sodium 142 mmol/L (135-145); Total Bilirubin 0.5 mg/dL (0.3-1.2); Total Protein 4.9 g/dL (6.2-8.2)
[2024-10-28 13:09] LABS: Basophils # (A) 0.05 X 10*3/uL (0.00-0.10); Basophils % (A) 0.2 %; Eosinophils # (A) 0.01 X 10*3/uL (0.04-0.35); Eosinophils % (A) 0 %; Lymphocytes # (A) 0.74 X 10*3/uL (0.90-5.00); Lymphocytes % (A) 3.6 %; Monocytes # (A) 0.97 X 10*3/uL (0.20-1.00); Monocytes % (A) 4.7 %; Neutrophils # (A) 18.84 X 10*3/uL (1.80-7.70); Neutrophils % (A) 90.6 %
[2024-10-28] MEDS: DEXTROSE 5% IN WATER 1,000 ML with SODIUM BICARB (1 MEQ/ML) 150 ML IV SCH (14:08)
[2024-10-28] MEDS: VANCOMYCIN 1,250 MG in SODIUM CHLORIDE 0.9% 250 ML IVPB ONE (14:08)
--- NOTE | 2024-10-28 17:35 | P.HPIM ---
History of Present Illness H&P Date: 10/27/24 Chief Complaint: Weakness 78 years old male with past medical history of multiple medical history of chronic kidney disease, presents to ED because of generalized weakness, ye sterday he could not get up from his restroom because of his severe weakness so he came to the emergency room; patient reports history of difficulty urination and dysuria for past few days No chest pain or dyspnea. No headache dizziness weakness or numbness in 1 limb. He has chronically loose bowel movement in his ileostomy. Yesterday he vomited twice He denies smoking alcohol or illicit drugs Blood work completed in ED reveals leukocytosis 26,000, hemoglobin 9.8, creatinine 2.6 and 2.7. Bilirubin 1.9. Carbon dioxide is 11; lactic acid of 14 CT of the abdomen pelvis showing cystitis with fat stranding and enlarged prostate correlate for PSA. Right abdominal ostomy with no evidence of obstruction Chest x-ray is unremarkable Review of Systems REVIEW OF SYSTEMS: CONSTITUTIONAL: No fever, no malaise, no fatigue. HEENT: No recent visual problems or hearing problems. Denied any sore throat. CARDIOVASCULAR: No chest pain, orthopnea, PND, no palpitations, no syncope. PULMONARY: No shortness of breath, no cough, no hemoptysis. GASTROINTESTINAL: No diarrhea, no nausea, no vomiting, no abdominal pain. NEUROLOGICAL: No headaches, no weakness, no numbness. HEMATOLOGICAL: Denies any bleeding or petechiae. GENITOURINARY: Denies any burning micturition, frequency, or urgency. MUSCULOSKELETAL/RHEUMATOLOGICAL: Denies any joint pain, swelling, or any muscle pain. ENDOCRINE: Denies any polyuria or polydipsia. The rest of the 14-point review of systems is negative. Past Medical History Past Medical History: Renal Disease Additional Past Medical History / Comment(s): metabolic acidosis, renal failure, tremors Past Surgical History: Bowel Resection, Orthopedic Surgery Additional Past Surgical History / Comment(s): ileostomy Smoking Status: Former smoker Past Alcohol Use History: None Reported Past Drug Use History: None Reported - Past Family History Mother Additional Family Medical History / Comment(s): mom liver issues Medications and Allergies Home Medications Medication Instructions Recorded Confirmed Type Pregabalin 25 mg PO TID 10/26/24 10/27/24 History allopurinoL 300 mg PO DAILY 10/26/24 10/27/24 History diazePAM [Valium] 5 mg PO TID PRN 10/26/24 10/27/24 History Acetaminophen [Tylenol 8 Hour] 1,300 mg PO TID 10/27/24 10/27/24 History Sodium Bicarbonate Tab 1,300 mg PO TID 10/27/24 10/27/24 History cefuroxime axetiL [Ceftin] 500 mg PO BID 10/27/24 10/27/24 History Allergies Allergy/AdvReac Type Severity Reaction Status Date / Time No Known Allergies Allergy Verified 10/27/24 19:42 Physical Exam Vitals: Vital Signs Temp Pulse Resp BP Pulse Ox 10/27/24 20:41 120 H 28 H 113/80 93 L 10/27/24 19:45 116 H 18 146/76 96 10/27/24 19:00 105 H 20 148/86 10/27/24 18:02 98 18 118/60 97 10/27/24 14:06 98.2 F 90 18 120/66 99 Intake and Output 10/27/24 10/27/24 10/27/24 06:59 14:59 22:59 Other: Weight 76.204 kg General: Appears in no acute distress. HEAD: Normal with no signs of head trauma. EYES: PERRLA, EOMI, conjunctiva normal, no discharge. ENT: Hearing grossly intact, normal oropharynx. Dry mucous membranes. RESPIRATORY: Clear breath sounds bilaterally. No wheezes, rales, or rhonchi. C/V: Regular rate and rhythm. S1 and S2 auscultated, no edema, peripheral pulses 2+ and intact throughout ABD: Abd is soft, nontender, nondistended. Ostomy bag in place and appears to be draining appropriately. EXT: Normal range of motion, no obvious deformity SKIN: No rashes or lesions observed on exposed skin. NEURO: Alert and oriented x 4. Results CBC & Chem 7: 10/28/24 06:13 10/28/24 06:13 Labs: Abnormal Lab Results - Last 24 Hours (Table) 10/27/24 10/27/24 10/27/24 Range/Units 14:42 14:42 14:42 WBC 26.0 H (3.8-10.6) k/uL RBC 2.78 L (4.30-5.90) m/uL Hgb 9.8 L (13.0-17.5) gm/dL Hct 29.8 L (39.0-53.0) % MCV 107.1 H (80.0-100.0) fL MCH 35.3 H (25.0-35.0) pg Neutrophils # 24.4 H (1.3-7.7) k/uL Lymphocytes # 0.4 L (1.0-4.8) k/uL Chloride 114 H (98-107) mmol/L Carbon Dioxide 11 L (22-30) mmol/L BUN 48 H (9-20) mg/dL Creatinine 2.74 H (0.66-1.25) mg/dL Glucose 171 H (74-99) mg/dL Plasma Lactic Acid Darshan 4.0 H* (0.7-2.0) mmol/L AST 92 H (17-59) U/L Total Protein 5.9 L (6.3-8.2) g/dL Urine Protein (Negative) Urine Blood (Negative) Ur Leukocyte Esterase (Negative) Urine WBC (0-5) /hpf Urine WBC Clumps (None) /hpf Urine Bacteria (None) /hpf Urine Mucus (None) /hpf 10/27/24 Range/Units 15:20 WBC (3.8-10.6) k/uL RBC (4.30-5.90) m/uL Hgb (13.0-17.5) gm/dL Hct (39.0-53.0) % MCV (80.0-100.0) fL MCH (25.0-35.0) pg Neutrophils # (1.3-7.7) k/uL Lymphocytes # (1.0-4.8) k/uL Chloride (98-107) mmol/L Carbon Dioxide (22-30) mmol/L BUN (9-20) mg/dL Creatinine (0.66-1.25) mg/dL Glucose (74-99) mg/dL Plasma Lactic Acid Darshan (0.7-2.0) mmol/L AST (17-59) U/L Total Protein (6.3-8.2) g/dL Urine Protein 1+ H (Negative) Urine Blood Large H (Negative) Ur Leukocyte Esterase Large H (Negative) Urine WBC >182 H (0-5) /hpf Urine WBC Clumps Occasional H (None) /hpf Urine Bacteria Few H (None) /hpf Urine Mucus Few H (None) /hpf Assessment and Plan Assessment: 1. Sepsis; likely related to UTI; as indicated by elevated white blood count and lactic acid level -Patient has been pancultured; started on broad-spectrum antibiotics in form of IV cefepime and vancomycin -Blood pressure remains stable; monitor CBC, CRP and procalcitonin 2. Acute UTI and cystitis/sepsis --IV antibiotics in form of cefepime and vancomycin -Blood cultures and urine cultures obtained and pending -ID is consulted for further recommendations; appreciate input 3. Generalized weakness; likely related to UTI/sepsis -We will consult PT/OT once stable 4. Acute kidney injury, with possible baseline of chronic kidney disease -Patient has been placed on IV fluids in form of normal saline; we will monitor strict MAGGIE's, daily weights, renal function electrolytes; avoid nephrotoxins and hypotension -Nephrology consult in place; input appreciated 5. Chronic anemia; hemoglobin at 9.8; we will monitor CBC; start patient on Protonix 6. Hyperuricemia/gout; patient takes allopurinol 300 mg daily 7. Anxiety/neuropathy; Valium 5 mg 3 times daily; Lyrica 25 mg daily DVT prophylaxis; SCDs/subcu heparin CODE STATUS; full code
--- NOTE | 2024-10-28 17:36 | P.PN ---
Subjective Progress Note Date: 10/28/24 78 years old male with past medical history of multiple medical history of chronic kidney disease, presents to ED because of generalized weakness, yesterday he could not get up from his restroom because of his severe weakness so he came to the emergency room; patient reports history of difficulty urinatio n and dysuria for past few days No chest pain or dyspnea. No headache dizziness weakness or numbness in 1 limb. He has chronically loose bowel movement in his ileostomy. Yesterday he vomited twice He denies smoking alcohol or illicit drugs Blood work completed in ED reveals leukocytosis 26,000, hemoglobin 9.8, creatinine 2.6 and 2.7. Bilirubin 1.9. Carbon dioxide is 11; lactic acid of 14 CT of the abdomen pelvis showing cystitis with fat stranding and enlarged prostate correlate for PSA. Right abdominal ostomy with no evidence of obstruction Chest x-ray is unremarkable Objective - Vital Signs Vital signs: Vital Signs Temp 97.6 F 10/28/24 12:03 Pulse 69 10/28/24 12:03 Resp 16 10/28/24 12:03 BP 92/49 10/28/24 12:03 Pulse Ox 97 10/28/24 12:03 FiO2 Intake & Output 10/27/24 10/28/24 10/28/24 18:59 06:59 18:59 Intake Total 240 Balance 240 Weight 76.204 kg 76.204 kg Intake: Oral 240 Other: Voiding Method Urinal - Exam General: Appears in no acute distress. HEAD: Normal with no signs of head trauma. EYES: PERRLA, EOMI, conjunctiva normal, no discharge. ENT: Hearing grossly intact, normal oropharynx. Dry mucous membranes. RESPIRATORY: Clear breath sounds bilaterally. No wheezes, rales, or rhonchi. C/V: Regular rate and rhythm. S1 and S2 auscultated, no edema, peripheral pulses 2+ and intact throughout ABD: Abd is soft, nontender, nondistended. Ostomy bag in place and appears to be draining appropriately. EXT: Normal range of motion, no obvious deformity SKIN: No rashes or lesions observed on exposed skin. NEURO: Alert and oriented x 4. - Labs CBC & Chem 7: 10/28/24 06:13 10/28/24 06:13 Labs: Abnormal Lab Results - Last 24 Hours (Table) 0210/27/24 10/27/24 Range/Units 14:42 14:42 14:42 WBC 26.0 H (3.8-10.6) k/uL RBC 2.78 L (4.30-5.90) m/uL Hgb 9.8 L (13.0-17.5) gm/dL Hct 29.8 L (39.0-53.0) % MCV 107.1 H (80.0-100.0) fL MCH 35.3 H (25.0-35.0) pg RDW (11.5-14.5) % Plt Count (140-440) X 10*3/uL Neutrophils # 24.4 H (1.3-7.7) k/uL Lymphocytes # 0.4 L (1.0-4.8) k/uL Chloride 114 H (98-107) mmol/L Carbon Dioxide 11 L (22-30) mmol/L Anion Gap (4.00-12.00) mmol/L BUN 48 H (9-20) mg/dL Creatinine 2.74 H (0.66-1.25) mg/dL Est GFR (CKD-EPI) (>=60) Glucose 171 H (74-99) mg/dL Plasma Lactic Acid Darshan 4.0 H* (0.7-2.0) mmol/L Calcium (8.7-10.3) mg/dL AST 92 H (17-59) U/L ALT (10-49) U/L Total Protein 5.9 L (6.3-8.2) g/dL Albumin (3.8-4.9) g/dL Urine Protein (Negative) Urine Blood (Negative) Ur Leukocyte Esterase (Negative) Urine WBC (0-5) /hpf Urine WBC Clumps (None) /hpf Urine Bacteria (None) /hpf Urine Mucus (None) /hpf 10/27/24 10/28/24 10/28/24 Range/Units 15:20 06:13 06:13 WBC 20.80 H (3.8-10.6) k/uL RBC 2.48 L (4.30-5.90) m/uL Hgb 8.4 L (13.0-17.5) gm/dL Hct 26.1 L (39.0-53.0) % MCV 105.2 H (80.0-100.0) fL MCH 33.9 H (25.0-35.0) pg RDW 15.4 H (11.5-14.5) % Plt Count 131 L (140-440) X 10*3/uL Neutrophils # (1.3-7.7) k/uL Lymphocytes # (1.0-4.8) k/uL Chloride 115 H (98-107) mmol/L Carbon Dioxide 14.0 L (22-30) mmol/L Anion Gap 13.00 H (4.00-12.00) mmol/L BUN 47.4 H (9-20) mg/dL Creatinine 3.2 H (0.66-1.25) mg/dL Est GFR (CKD-EPI) 19 L (>=60) Glucose (74-99) mg/dL Plasma Lactic Acid Darshan (0.7-2.0) mmol/L Calcium 8.1 L (8.7-10.3) mg/dL AST 644 H (17-59) U/L ALT 120 H (10-49) U/L Total Protein 4.9 L (6.3-8.2) g/dL Albumin 3.2 L (3.8-4.9) g/dL Urine Protein 1+ H (Negative) Urine Blood Large H (Negative) Ur Leukocyte Esterase Large H (Negative) Urine WBC >182 H (0-5) /hpf Urine WBC Clumps Occasional H (None) /hpf Urine Bacteria Few H (None) /hpf Urine Mucus Few H (None) /hpf Assessment and Plan Assessment: 1. Sepsis; likely related to UTI; as indicated by elevated white blood count and lactic acid level -Patient has been pancultured; started on broad-spectrum antibiotics in form of IV cefepime and vancomycin -Blood pressure remains stable; monitor CBC, CRP and procalcitonin 2. Acute UTI and cystitis/sepsis --IV antibiotics in form of cefepime and vancomycin -Blood cultures and urine cultures obtained and pending -ID is consulted for further recommendations; appreciate input 3. Generalized weakness; likely related to UTI/sepsis -We will consult PT/OT once stable 4. Acute kidney injury, with possible baseline of chronic kidney disease -Patient has been placed on IV fluids in form of normal saline; we will monitor strict MAGGIE's, daily weights, renal function electrolytes; avoid nephrotoxins and hypotension -Nephrology consult in place; input appreciated 5. Chronic anemia; hemoglobin at 9.8; we will monitor CBC; start patient on Protonix 6. Hyperuricemia/gout; patient takes allopurinol 300 mg daily 7. Anxiety/neuropathy; Valium 5 mg 3 times daily; Lyrica 25 mg daily DVT prophylaxis; SCDs/subcu heparin CODE STATUS; full code
--- NOTE | 2024-10-29 08:34 | P.CONS ---
History of Present Illness - Reason for Consult Consult date: 10/28/24 Sepsis Requesting physician: Sorin Mendez - Chief Complaint Weakness x few days - History of Present Illness Patient is a 78-year-old male with a past medical history significant for colon cancer, CKD, former smoker presenting to the hospital for evaluation of generalized weakness patient had been progressively getting worse patient was diabetic to include obesity living also complaining of dysuria but no hematuria did have some nausea but no vomiting and denies significant abdominal pain with the symptoms the patient has been evaluated on presentation to the hospital he did have a temperature of 101.1 F patient was more significant tachycardic mildly hypertensive but not hypoxic did have white count of 26,000 with a left shift BUN and creatinine has been elevated liver enzymes mildly elevated urine has been positive influenza RSV COVID testing has been negative patient did have a chest x-ray no acute cardiopulmonary disease process did have abdominal pelvis CT cystitis with fat stranding changes around the urinary bladder and wall thickening nonobstructing left renal calculus prostatomegaly patient was started on ceftriaxone and vancomycin pharmacy to dose infectious disease was consulted for further management of antibiotic therapy Review of Systems Positive point and negatives has been mentioned in the HPI, complete review of systems was performed and all other systems are negative Past Medical History Past Medical History: Renal Disease Additional Past Medical History / Comment(s): metabolic acidosis, renal failure, tremors History of Any Multi-Drug Resistant Organisms: None Reported Past Surgical History: Bowel Resection, Orthopedic Surgery Additional Past Surgical History / Comment(s): ileostomy Past Anesthesia/Blood Transfusion Reactions: No Reported Reaction Smoking Status: Former smoker Past Alcohol Use History: None Reported Past Drug Use History: None Reported - Past Family History Mother Additional Family Medical History / Comment(s): mom liver issues Medications and Allergies Home Medications Medication Instructions Recorded Confirmed Type Pregabalin 25 mg PO TID 10/26/24 10/27/24 History allopurinoL 300 mg PO DAILY 10/26/24 10/27/24 History diazePAM [Valium] 5 mg PO TID PRN 10/26/24 10/27/24 History Acetaminophen [Tylenol 8 Hour] 1,300 mg PO TID 10/27/24 10/27/24 History Sodium Bicarbonate Tab 1,300 mg PO TID 10/27/24 10/27/24 History cefuroxime axetiL [Ceftin] 500 mg PO BID 10/27/24 10/27/24 History Allergies Allergy/AdvReac Type Severity Reaction Status Date / Time No Known Allergies Allergy Verified 10/27/24 19:42 Physical Exam Vitals: Vital Signs Temp Pulse Pulse Resp BP BP Pulse Ox 10/28/24 12:03 97.6 F 69 16 92/49 97 10/28/24 09:00 95 16 10/28/24 08:26 98.2 F 95 16 115/63 99 10/28/24 06:54 99.9 F H 10/28/24 06:46 16 105/49 93 L 10/28/24 04:55 101.1 F H 10/28/24 04:41 105 H 18 123/60 97 10/28/24 02:27 101 H 18 116/58 95 10/28/24 00:00 110 H 20 106/80 95 10/27/24 22:38 111 H 20 100/70 94 L 10/27/24 21:44 118 H 26 H 146/50 96 10/27/24 20:41 120 H 28 H 113/80 93 L 10/27/24 19:45 116 H 18 146/76 96 10/27/24 19:00 105 H 20 148/86 10/27/24 18:02 98 18 118/60 97 Intake and Output 10/27/24 10/28/24 10/28/24 22:59 06:59 14:59 Intake Total 1320 Output Total 1500 Balance -180 Intake: Oral 1320 Output: Urine 1100 Stool 400 Other: Voiding Method Urinal Weight 76.204 kg GENERAL DESCRIPTION: Elderly male lying in bed, no distress. No tachypnea or accessory muscle of respiration use. HEENT: Shows Pallor , no scleral icterus. Oral mucous membrane is dry. NECK: Trachea central, no thyromegaly. LUNGS: Unlabored breathing. Clear to auscultation anteriorly. No wheeze or crackle. HEART: S1, S2, regular rate and rhythm. No loud murmur ABDOMEN: Soft, no tenderness , guarding or rigidity, no organomegaly EXTREMITIES: No edema of feet. SKIN: No rash, no masses palpable. NEUROLOGICAL: The patient is awake, alert, oriented x3, mood and affect normal. Results CBC & Chem 7: 10/29/24 04:40 10/29/24 04:40 Labs: Abnormal Lab Results - Last 24 Hours (Table) 10/27/24 10/27/24 10/27/24 Range/Units 14:42 14:42 14:42 WBC 26.0 H (3.8-10.6) k/uL RBC 2.78 L (4.30-5.90) m/uL Hgb 9.8 L (13.0-17.5) gm/dL Hct 29.8 L (39.0-53.0) % MCV 107.1 H (80.0-100.0) fL MCH 35.3 H (25.0-35.0) pg RDW (11.5-14.5) % Plt Count (140-440) X 10*3/uL Immature Gran # (0.00-0.04) X 10*3/uL Neutrophils # 24.4 H (1.3-7.7) k/uL Lymphocytes # 0.4 L (1.0-4.8) k/uL Eosinophils # (0.04-0.35) X 10*3/uL Chloride 114 H (98-107) mmol/L Carbon Dioxide 11 L (22-30) mmol/L Anion Gap (4.00-12.00) mmol/L BUN 48 H (9-20) mg/dL Creatinine 2.74 H (0.66-1.25) mg/dL Est GFR (CKD-EPI) (>=60) Glucose 171 H (74-99) mg/dL Plasma Lactic Acid Darshan 4.0 H* (0.7-2.0) mmol/L Calcium (8.7-10.3) mg/dL AST 92 H (17-59) U/L ALT (10-49) U/L Total Protein 5.9 L (6.3-8.2) g/dL Albumin (3.8-4.9) g/dL Procalcitonin (0.02-0.50) ng/mL Urine Protein (Negative) Urine Blood (Negative) Ur Leukocyte Esterase (Negative) Urine WBC (0-5) /hpf Urine WBC Clumps (None) /hpf Urine Bacteria (None) /hpf Urine Mucus (None) /hpf 10/27/24 10/28/24 10/28/24 Range/Units 15:20 06:13 06:13 WBC 20.80 H (3.8-10.6) k/uL RBC 2.48 L (4.30-5.90) m/uL Hgb 8.4 L (13.0-17.5) gm/dL Hct 26.1 L (39.0-53.0) % MCV 105.2 H (80.0-100.0) fL MCH 33.9 H (25.0-35.0) pg RDW 15.4 H (11.5-14.5) % Plt Count 131 L (140-440) X 10*3/uL Immature Gran # 0.19 H (0.00-0.04) X 10*3/uL Neutrophils # 18.84 H (1.3-7.7) k/uL Lymphocytes # 0.74 L (1.0-4.8) k/uL Eosinophils # 0.01 L (0.04-0.35) X 10*3/uL Chloride 115 H (98-107) mmol/L Carbon Dioxide 14.0 L (22-30) mmol/L Anion Gap 13.00 H (4.00-12.00) mmol/L BUN 47.4 H (9-20) mg/dL Creatinine 3.2 H (0.66-1.25) mg/dL Est GFR (CKD-EPI) 19 L (>=60) Glucose (74-99) mg/dL Plasma Lactic Acid Darshan (0.7-2.0) mmol/L Calcium 8.1 L (8.7-10.3) mg/dL AST 644 H (17-59) U/L ALT 120 H (10-49) U/L Total Protein 4.9 L (6.3-8.2) g/dL Albumin 3.2 L (3.8-4.9) g/dL Procalcitonin (0.02-0.50) ng/mL Urine Protein 1+ H (Negative) Urine Blood Large H (Negative) Ur Leukocyte Esterase Large H (Negative) Urine WBC >182 H (0-5) /hpf Urine WBC Clumps Occasional H (None) /hpf Urine Bacteria Few H (None) /hpf Urine Mucus Few H (None) /hpf 10/28/24 Range/Units 06:13 WBC (3.8-10.6) k/uL RBC (4.30-5.90) m/uL Hgb (13.0-17.5) gm/dL Hct (39.0-53.0) % MCV (80.0-100.0) fL MCH (25.0-35.0) pg RDW (11.5-14.5) % Plt Count (140-440) X 10*3/uL Immature Gran # (0.00-0.04) X 10*3/uL Neutrophils # (1.3-7.7) k/uL Lymphocytes # (1.0-4.8) k/uL Eosinophils # (0.04-0.35) X 10*3/uL Chloride (98-107) mmol/L Carbon Dioxide (22-30) mmol/L Anion Gap (4.00-12.00) mmol/L BUN (9-20) mg/dL Creatinine (0.66-1.25) mg/dL Est GFR (CKD-EPI) (>=60) Glucose (74-99) mg/dL Plasma Lactic Acid Darshan (0.7-2.0) mmol/L Calcium (8.7-10.3) mg/dL AST (17-59) U/L ALT (10-49) U/L Total Protein (6.3-8.2) g/dL Albumin (3.8-4.9) g/dL Procalcitonin 10.50 H (0.02-0.50) ng/mL Urine Protein (Negative) Urine Blood (Negative) Ur Leukocyte Esterase (Negative) Urine WBC (0-5) /hpf Urine WBC Clumps (None) /hpf Urine Bacteria (None) /hpf Urine Mucus (None) /hpf Assessment and Plan (1) Sepsis Current Visit: Yes Status: Acute Code(s): A41.9 - SEPSIS, UNSPECIFIED ORGANISM SNOMED Code(s): 54301439 (2) UTI (urinary tract infection) Current Visit: Yes Status: Acute Code(s): N39.0 - URINARY TRACT INFECTION, SITE NOT SPECIFIED SNOMED Code(s): 20330257 Plan: 1patient presented to hospital with sepsis in this patient who did have a fever tachycardia elevated white count source is likely UTI in this patient who did have evidence of cystitis on the CT significantly positive UA likely from enteric gram-negative pathogen less likely gram-positive. 2patient with elevated creatinine high risk of nephrotoxicity from vancomycin which will be discontinued 3Rocephin 2 g daily while waiting for the culture to finalize We will follow on clinical condition and cultures to further adjust medication if needed Thank you for this consultation we will follow the patient along with you Dictation was produced using [employer] software. please excuse any grammatical, word or spelling errors. Time with Patient: Greater than 30
[2024-10-29 08:42] LABS: BUN/Creat Ratio 12.69 Ratio (12.00-20.00); Blood Urea Nitrogen 53.3 mg/dL (9.0-27.0); Carbon Dioxide 19.2 mmol/L (21.6-31.8); Chloride 111 mmol/L (96-109); Glucose 103 mg/dL (70-110); Potassium 3.6 mmol/L (3.5-5.5); Sodium 143 mmol/L (135-145)
[2024-10-29 09:05] LABS: Basophils # (A) 0.07 X 10*3/uL (0.00-0.10); Basophils % (A) 0.5 %; Eosinophils # (A) 0.23 X 10*3/uL (0.04-0.35); Eosinophils % (A) 1.5 %; HCT 26.8 % (39.6-50.0); HGB 8.7 g/dL (13.0-17.0); Lymphocytes # (A) 0.81 X 10*3/uL (0.90-5.00); Lymphocytes % (A) 5.4 %; MCHC 32.5 g/dL (32.0-37.0); MCV 104.7 FL (80.0-97.0); Mean Platelet Volume 11.1 FL (9.5-12.2); Monocytes # (A) 0.86 X 10*3/uL (0.20-1.00); Monocytes % (A) 5.7 %; NRBC Per 100 WBC 0 X 10*3/uL (0.00-0.01); Neutrophils # (A) 12.99 X 10*3/uL (1.80-7.70); Neutrophils % (A) 86.1 %; Platelet Count 138 X 10*3/uL (140-440); RBC 2.56 X 10*6/uL (4.40-5.60); RDW 15.2 % (11.5-14.5); WBC 15.08 X 10*3/uL (4.50-10.00)
--- NOTE | 2024-10-29 13:20 | P.PN ---
Subjective Patient is seen for follow-up for acute kidney injury. Maintained on IV fluids Serum creatinine increased to 4.2 today. No urine retention noted. Urine output documented at 1500 mL for 24 hours. Vancomycin level 20.2 from today Blood pressure has been on the lower side Objective - Vital Signs Vital signs: Vital Signs Temp 98.2 F 10/29/24 12:22 Pulse 80 10/29/24 12:22 Resp 18 10/29/24 12:22 BP 100/57 10/29/24 12:22 Pulse Ox 96 10/29/24 12:22 FiO2 Intake & Output 10/28/24 10/29/24 10/29/24 18:59 06:59 18:59 Intake Total 1800 Output Total 1700 1200 Balance 100 -1200 Intake: Oral 1800 Output: Urine 1100 400 Stool 600 800 Other: Voiding Method Urinal Urinal - Exam Patient is sleeping. He is comfortable no acute distress. He appears euvolemic with no evidence of edema in the lower extremities. Moving all 4 extremities. - Labs CBC & Chem 7: 10/29/24 04:40 10/29/24 04:40 Labs: Abnormal Lab Results - Last 24 Hours (Table) 10/29/24 10/29/24 Range/Units 04:40 04:40 WBC 15.08 H (4.50-10.00) X 10*3/uL RBC 2.56 L (4.40-5.60) X 10*6/uL Hgb 8.7 L (13.0-17.0) g/dL Hct 26.8 L (39.6-50.0) % MCV 104.7 H (80.0-97.0) FL MCH 34.0 H (27.0-32.0) pg RDW 15.2 H (11.5-14.5) % Plt Count 138 L (140-440) X 10*3/uL Immature Gran # 0.12 H (0.00-0.04) X 10*3/uL Neutrophils # 12.99 H (1.80-7.70) X 10*3/uL Lymphocytes # 0.81 L (0.90-5.00) X 10*3/uL Chloride 111 H (96-109) mmol/L Carbon Dioxide 19.2 L (21.6-31.8) mmol/L Anion Gap 12.80 H (4.00-12.00) mmol/L BUN 53.3 H (9.0-27.0) mg/dL Creatinine 4.2 H (0.6-1.5) mg/dL Est GFR (CKD-EPI) 14 L (>=60) Calcium 8.0 L (8.7-10.3) mg/dL Microbiology - Last 24 Hours (Table) 10/27/24 15:20 Urine Culture - Preliminary Urine,Voided Gram Neg Bacilli 10/27/24 16:15 Blood Culture - Preliminary Blood Assessment and Plan Assessment: 1. Acute kidney injury ATN secondary to volume depletion and some degree of hypotension. UA suggestive of UTI. No evidence of hydronephrosis on CT of the abdomen currently maintained on IV fluids. 2. Chronic kidney disease stage IIIb with baseline creatinine 1.7 to 1.9 mg/dL. Previous history of use of NSAIDs and history of nephrotoxicity from previous use of ampicillin. 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 3. Nonobstructive left 5 mm calculus 4. Severe metabolic acidosis secondary to GI fluid loss from the ileostomy along with lactic acidosis 5. UTI maintain on antibiotics 6. Sepsis from UTI Plan: Continue with IV antibiotics Continue with IV bicarb Repeat labs in a.m. Avoid nephrotoxic medications Continue with oral sodium bicarb. Consider decreasing dose of acetaminophen.
--- NOTE | 2024-10-29 17:22 | P.PN ---
Subjective Progress Note Date: 10/29/24 Principal diagnosis: Reason for follow-up is cystitis, leukocytosis Patient is a 78-year-old male with a past medical history significant for colon cancer, CKD, former smoker presenting to the hospital for evaluation of generalized weakness, patient did have fever elevated white count significantly positive UA with abnormal CT suggestive of cystitis prompted this consultation. On today's evaluation that is 10/29/2024, patient has been afebrile, patient is breathing comfortably and is currently on room air, patient denies having any significant cough no chest pain, patient denies nausea vomiting or diarrhea and no abdominal pain. Patient with concern of 15.08, creatinine is 4.2 Vanco random is 20.2 urine showing gram-negative bacilli Objective - Vital Signs Vital signs: Vital Signs Temp 99.2 F 10/29/24 07:22 Pulse 70 10/29/24 07:22 Resp 18 10/29/24 07:22 BP 114/58 10/29/24 07:22 Pulse Ox 94 L 10/29/24 07:22 FiO2 Intake & Output 10/28/24 10/29/24 10/29/24 18:59 06:59 18:59 Intake Total 1800 Output Total 1700 1200 Balance 100 -1200 Intake: Oral 1800 Output: Urine 1100 400 Stool 600 800 Other: Voiding Method Urinal Urinal - Exam GENERAL DESCRIPTION: An elderly male up in the chair in no distress RESPIRATORY SYSTEM: Unlabored breathing , decreased breath sounds at bases HEART: S1 S2 regular rate and rhythm , ABDOMEN: Soft , no tenderness EXTREMITIES: No edema feet - Labs CBC & Chem 7: 10/29/24 04:40 10/29/24 04:40 Labs: Abnormal Lab Results - Last 24 Hours (Table) 10/28/24 10/29/24 10/29/24 Range/Units 06:13 04:40 04:40 WBC 15.08 H (4.50-10.00) X 10*3/uL RBC 2.56 L (4.40-5.60) X 10*6/uL Hgb 8.7 L (13.0-17.0) g/dL Hct 26.8 L (39.6-50.0) % MCV 104.7 H (80.0-97.0) FL MCH 34.0 H (27.0-32.0) pg RDW 15.2 H (11.5-14.5) % Plt Count 138 L (140-440) X 10*3/uL Immature Gran # 0.19 H 0.12 H (0.00-0.04) X 10*3/uL Neutrophils # 18.84 H 12.99 H (1.80-7.70) X 10*3/uL Lymphocytes # 0.74 L 0.81 L (0.90-5.00) X 10*3/uL Eosinophils # 0.01 L (0.04-0.35) X 10*3/uL Chloride 111 H (96-109) mmol/L Carbon Dioxide 19.2 L (21.6-31.8) mmol/L Anion Gap 12.80 H (4.00-12.00) mmol/L BUN 53.3 H (9.0-27.0) mg/dL Creatinine 4.2 H (0.6-1.5) mg/dL Est GFR (CKD-EPI) 14 L (>=60) Calcium 8.0 L (8.7-10.3) mg/dL Microbiology - Last 24 Hours (Table) 10/27/24 15:20 Urine Culture - Preliminary Urine,Voided Gram Neg Bacilli 10/27/24 16:15 Blood Culture - Preliminary Blood Assessment and Plan (1) Sepsis Current Visit: Yes Status: Acute Code(s): A41.9 - SEPSIS, UNSPECIFIED ORGANISM SNOMED Code(s): 38530576 (2) UTI (urinary tract infection) Current Visit: Yes Status: Acute Code(s): N39.0 - URINARY TRACT INFECTION, SITE NOT SPECIFIED SNOMED Code(s): 89828605 Plan: 1patient presented to hospital with sepsis in this patient who did have a fever tachycardia elevated white count source is likely UTI in this patient who did have evidence of cystitis on the CT significantly positive UA likely from enteric gram-negative pathogen less likely gram-positive. 2patient with elevated creatinine high risk of nephrotoxicity from vancomycin which has been discontinued 3patient blood culture pending urine is growing gram-negative will continue with Rocephin while waiting for the culture to finalize Dictation was produced using [employer] software. please excuse any grammatical, word or spelling errors. Time with Patient: Less than 30
[2024-10-29] MEDS: diazePAM 5 MG TAB PO PRN (20:57)
[2024-10-30 10:15] LABS: Basophils % (A) 0 %; Eosinophils # (A) 0.3 k/uL (0-0.7); Eosinophils % (A) 3 %; HCT 29.7 % (39.0-53.0); HGB 9.4 gm/dL (13.0-17.5); Hypochromasia Slight; Lymphocytes # (A) 0.8 k/uL (1.0-4.8); Lymphocytes % (A) 7 %; MCH 33.8 pg (25.0-35.0); MCHC 31.8 g/dL (31.0-37.0); MCV 106.4 fL (80.0-100.0); Macrocytosis Moderate; Mean Platelet Volume 8.9; Monocytes # (A) 0.5 k/uL (0-1.0); Monocytes % (A) 5 %; Neutrophils # (A) 8.4 k/uL (1.3-7.7); Neutrophils % (A) 82 %; Platelet Count 163 k/uL (150-450); RBC 2.79 m/uL (4.30-5.90); RDW 14.5 % (11.5-15.5); WBC 10.2 k/uL (3.8-10.6)
[2024-10-30 10:27] LABS: African American GFR (CKD) 12 (>60 ml/min/1.73 sqM); Anion Gap 11 mmol/L; Blood Urea Nitrogen 62 mg/dL (9-20); Calcium 8.3 mg/dL (8.4-10.2); Carbon Dioxide 25 mmol/L (22-30); Chloride 105 mmol/L (98-107); Glucose 97 mg/dL (74-99); Non-African American GFR(CKD) 10 (>60 ml/min/1.73 sqM); Potassium 3.8 mmol/L (3.5-5.1); Sodium 141 mmol/L (137-145)
[2024-10-30] MEDS: FAMOTIDINE 20 MG/2 ML VIAL IV SCH (10:38)
--- NOTE | 2024-10-30 10:38 | P.PN ---
Subjective Date of service for this note is 10/29/2024, patient seen and examined by me at bedside This is a pleasant 78 years old male with past medical history of multiple medical problems as below. 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 No headache dizziness weakness or numbness in 1 limb. He has chronically loose bowel movement in his ileostomy. Yesterday he vomited twice He denies smoking alcohol or illicit drugs Vitals reviewed, patient was tachycardic, tachypneic, he developed fever of 101 this morning. He has leukocytosis 26,000, hemoglobin 9.8, creatinine 2.6 and 2.7. Bilirubin 1.9. Carbon dioxide is 11 Lactic acid elevated at 1 4 came down to 1.3 CT of the abdomen pelvis showing cystitis with fat stranding and enlarged prostate correlate for PSA. Patient informed of the need to follow-up with urologist Right abdominal ostomy with no evidence of obstruction Chest x-ray is negative Blood cultures pending Patient received cefepime x 1 dose and IV vancomycin 10/29/2024 He still patient seen and examined by me at bedside Weak ankle has urinary symptoms of dysuria and suprapubic pain and tenderness He feels generally weak. He says he is peeing a lot Right lower quadrant ileostomy bag is working. His tachycardia and tachypnea improving, his fever improving as well His lactic acid improved down to 1.3 CT of the abdomen pelvis was reviewed showing cystitis and a large prostate Blood cultures pending Urine cultures pending Patient currently covered with ceftriaxone. IV vancomycin was discontinued. Infectious disease team following closely and adjust antibiotic accordingly Nephrology team also following closely Will consult urology team Objective - Vital Signs Vital signs: Vital Signs Temp 98.1 F 10/30/24 08:00 Pulse 69 10/30/24 08:00 Resp 14 10/30/24 08:00 BP 118/60 10/30/24 08:00 Pulse Ox 98 10/30/24 08:00 FiO2 Intake & Output 10/29/24 10/30/2425 18:59 06:59 18:59 Output Total 150 Balance -150 Output: Urine 150 Other: Voiding Method Toilet Toilet Urinal Urinal # Voids 1 - Exam -GENERAL: The patient is alert and oriented x3, not in any acute distress. Well developed, well nourished. Generally weak HEENT: Pupils are round and equally reacting to light. EOMI. No scleral icterus. No conjunctival pallor. Normocephalic, atraumatic. No pharyngeal erythema. No thyromegaly. CARDIOVASCULAR: S1 and S2 present. No murmurs, rubs, or gallops. PULMONARY: Chest is clear to auscultation, no wheezing , no crackles. -ABDOMEN: Soft, suprapubic tenderness, nondistended, normoactive bowel sounds. No palpable organomegaly. RLQ ileostomy MUSCULOSKELETAL: No joint swelling or deformity. EXTREMITIES: No cyanosis, clubbing, or pedal edema. NEUROLOGICAL: Gross neurological examination did not reveal any focal deficits. SKIN: No rashes. no petechiae. - Labs CBC & Chem 7: 10/30/24 09:58 10/30/24 09:58 Labs: Abnormal Lab Results - Last 24 Hours (Table) 10/30/24 10/30/24 Range/Units 09:58 09:58 RBC 2.79 L (4.30-5.90) m/uL Hgb 9.4 L (13.0-17.5) gm/dL Hct 29.7 L (39.0-53.0) % MCV 106.4 H (80.0-100.0) fL Neutrophils # 8.4 H (1.3-7.7) k/uL Lymphocytes # 0.8 L (1.0-4.8) k/uL BUN 62 H (9-20) mg/dL Creatinine 4.92 H (0.66-1.25) mg/dL Calcium 8.3 L (8.4-10.2) mg/dL Microbiology - Last 24 Hours (Table) 10/27/24 15:20 Urine Culture - Final Urine,Voided Enterobacter cloacae 10/27/24 16:15 Blood Culture - Preliminary Blood Assessment and Plan Assessment: Severe sepsis with leukocytosis and fever and tachypnea Acute UTI and cystitis secondary to gram-negative bacilli Generalized weakness secondary to above Acute kidney injury, with possible baseline of chronic kidney disease History of ileal tumor, noninvasive status post ileostomy Chronic anemia Plan: Continue with antibiotics, consult infectious disease team and defer antibiotic management to ID team Monitor creatinine and electrolytes closely Monitor culture results Continue with sodium bicarb Follow-up culture results Nephrology team consult consult urology team Labs and medication were reviewed.. Continue same treatment. Continue with symptomatic treatment. Resume home medication. Monitor labs and vitals. DVT and GI prophylaxis. Further recommendations as per clinical course of the patient DVT prophylaxis: Subcutaneous heparin GI Prophylaxis: Pepcid PT/OT: Pending Prognosis is guarded
--- NOTE | 2024-10-30 12:46 | P.PN ---
Subjective Patient is seen for follow-up for acute kidney injury. Maintained on IV fluids Serum creatinine increased to 4.9 today from 4.2 yesterday No urine retention noted. Urine output documented at 1500 mL for 24 hours. Vancomycin level 20.2 from 10/29/2024 Blood pressure has been on the lower side Objective - Vital Signs Vital signs: Vital Signs Temp 98.1 F 10/30/24 08:00 Pulse 69 10/30/24 08:00 Resp 14 10/30/24 08:00 BP 118/60 10/30/24 08:00 Pulse Ox 98 10/30/24 08:00 FiO2 Intake & Output 10/29/24 10/30/24 10/30/24 18:59 06:59 18:59 Output Total 150 Balance -150 Output: Urine 150 Other: Voiding Method Toilet Toilet Urinal Urinal # Voids 1 - Exam Patient is sleeping. He is comfortable no acute distress. Examination of the heart S1 and S2 Examination of the lungs bilateral breath sounds are heard Abdomen is soft nontender. Ileostomy noted. 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 - Labs CBC & Chem 7: 10/30/24 09:58 10/30/24 09:58 Labs: Abnormal Lab Results - Last 24 Hours (Table) 10/30/24 10/30/24 Range/Units 09:58 09:58 RBC 2.79 L (4.30-5.90) m/uL Hgb 9.4 L (13.0-17.5) gm/dL Hct 29.7 L (39.0-53.0) % MCV 106.4 H (80.0-100.0) fL Neutrophils # 8.4 H (1.3-7.7) k/uL Lymphocytes # 0.8 L (1.0-4.8) k/uL BUN 62 H (9-20) mg/dL Creatinine 4.92 H (0.66-1.25) mg/dL Calcium 8.3 L (8.4-10.2) mg/dL Microbiology - Last 24 Hours (Table) 10/27/24 15:20 Urine Culture - Final Urine,Voided Enterobacter cloacae 10/27/24 16:15 Blood Culture - Preliminary Blood Assessment and Plan Assessment: 1. Acute kidney injury ATN secondary to volume depletion, hypotension and vancomycin toxicity. UA suggestive of UTI. No evidence of hydronephrosis on CT of the abdomen currently maintained on IV fluids. 2. Chronic kidney disease stage IIIb with baseline creatinine 1.7 to 1.9 mg/dL. Previous history of use of NSAIDs and history of nephrotoxicity from previous use of ampicillin. 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 3. Nonobstructive left 5 mm calculus 4. Severe metabolic acidosis secondary to GI fluid loss from the ileostomy along with lactic acidosis 5. UTI maintain on antibiotics 6. Sepsis from UTI Plan: Continue with IV antibiotics DC IV bicarb. Switch to Ringer lactate Repeat labs in a.m. Avoid nephrotoxic medications Continue with oral sodium bicarb. Decrease dose of acetaminophen.
[2024-10-30] MEDS: LACTATED RINGERS 1,000 ML IV SCH (14:47)
[2024-10-30] MEDS: TAMSULOSIN 0.4 MG CAP.ER.24H PO SCH (14:47)
--- NOTE | 2024-10-30 15:53 | P.PN ---
Subjective Progress Note Date: 10/30/24 Principal diagnosis: Reason for follow-up is cystitis, leukocytosis Patient is a 78-year-old male with a past medical history significant for colon cancer, CKD, former smoker presenting to the hospital for evaluation of generalized weakness, patient did have fever elevated white count significantly positive UA with abnormal CT suggestive of cystitis prompted this consultation. On today's evaluation that is 10/30/2024, Patient is afebrile this morning patient denies having any chest pain shortness of breath or cough, the patient is currently on room air, patient denies any abdominal pain no diarrhea no nausea no vomiting still complains of some urinary discomfort. Patient white count is 10.2 creatinine is 4.92, urine has been finalized with drug-resistant Enterobacter Objective - Vital Signs Vital signs: Vital Signs Temp 98.5 F 10/30/24 12:30 Pulse 65 10/30/24 12:30 Resp 14 10/30/24 12:30 BP 126/65 10/30/24 12:30 Pulse Ox 98 10/30/24 12:30 FiO2 Intake & Output 10/29/24 10/30/24 10/30/24 18:59 06:59 18:59 Output Total 150 Balance -150 Output: Urine 150 Other: Voiding Method Toilet Toilet Urinal Urinal # Voids 1 - Exam GENERAL DESCRIPTION: An elderly male up in the chair in no distress RESPIRATORY SYSTEM: Unlabored breathing , decreased breath sounds at bases HEART: S1 S2 regular rate and rhythm , ABDOMEN: Soft , no tenderness EXTREMITIES: No edema feet - Labs CBC & Chem 7: 10/30/24 09:58 10/30/24 09:58 Labs: Abnormal Lab Results - Last 24 Hours (Table) 10/30/24 10/30/24 Range/Units 09:58 09:58 RBC 2.79 L (4.30-5.90) m/uL Hgb 9.4 L (13.0-17.5) gm/dL Hct 29.7 L (39.0-53.0) % MCV 106.4 H (80.0-100.0) fL Neutrophils # 8.4 H (1.3-7.7) k/uL Lymphocytes # 0.8 L (1.0-4.8) k/uL BUN 62 H (9-20) mg/dL Creatinine 4.92 H (0.66-1.25) mg/dL Calcium 8.3 L (8.4-10.2) mg/dL Microbiology - Last 24 Hours (Table) 10/27/24 15:20 Urine Culture - Final Urine,Voided Enterobacter cloacae 10/27/24 16:15 Blood Culture - Preliminary Blood Assessment and Plan (1) Sepsis Current Visit: Yes Status: Acute Code(s): A41.9 - SEPSIS, UNSPECIFIED ORGANISM SNOMED Code(s): 37319314 (2) UTI (urinary tract infection) Current Visit: Yes Status: Acute Code(s): N39.0 - URINARY TRACT INFECTION, SITE NOT SPECIFIED SNOMED Code(s): 92794705 Plan: 1patient presented to hospital with sepsis in this patient who did have a fever tachycardia elevated white count source is likely UTI in this patient who did have evidence of cystitis on the CT significantly positive UA likely from enteric gram-negative pathogen less likely gram-positive. 2patient with elevated creatinine high risk of nephrotoxicity from vancomycin which has been discontinued 3patient blood culture pending urine is growing Enterobacter that is resistant to Rocephin, Rocephin discontinued patient started on cefepime dose adjusted for the kidney function Dictation was produced using [employer] dictation software. please excuse any grammatical, word or spelling errors. Time with Patient: Less than 30
[2024-10-30] MEDS ORDERED: CEFEPIME 2 GM in SODIUM CHLORIDE 0.9% 100 ML IVPB SCH (16:00)
[2024-10-30] MEDS: CEFEPIME 2 GM in SODIUM CHLORIDE 0.9% 100 ML IVPB STA (16:25)
[2024-10-30] MEDS: CEFEPIME 1 GM in SODIUM CHLORIDE 0.9% 50 ML IVPB SCH (17:01)
--- NOTE | 2024-10-30 18:06 | P.GSCN ---
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 He has a history of prostatitis. He was seen in the office by Dr. Phillip on July 25, 2024. His postvoid residual at that time was 152 cc. He presented to the ER on October 27, 2024 with primary complaints of generalized weakness and dysuria. He has been diagnosed with a UTI and was being treated with ceftriaxone, without improvement. The urine culture shows an Enterobacter UTI, resistant to ceftriaxone, and thus he was changed to cefepime. Review of Systems - Constitutional Reports fever - Genitourinary Reports dysuria Past Medical History Past Medical History: Renal Disease Additional Past Medical History / Comment(s): metabolic acidosis, renal failure, tremors History of Any Multi-Drug Resistant Organisms: None Reported Past Surgical History: Bowel Resection, Orthopedic Surgery Additional Past Surgical History / Comment(s): ileostomy Past Anesthesia/Blood Transfusion Reactions: No Reported Reaction Smoking Status: Former smoker Past Alcohol Use History: None Reported Past Drug Use History: None Reported - Past Family History Mother Additional Family Medical History / Comment(s): mom liver issues Medications and Allergies Home Medications Medication Instructions Recorded Confirmed Type Pregabalin 25 mg PO TID 10/26/24 10/27/24 History allopurinoL 300 mg PO DAILY 10/26/24 10/27/24 History diazePAM [Valium] 5 mg PO TID PRN 10/26/24 10/27/24 History Acetaminophen [Tylenol 8 Hour] 1,300 mg PO TID 10/27/24 10/27/24 History Sodium Bicarbonate Tab 1,300 mg PO TID 10/27/24 10/27/24 History cefuroxime axetiL [Ceftin] 500 mg PO BID 10/27/24 10/27/24 History Allergies Allergy/AdvReac Type Severity Reaction Status Date / Time No Known Allergies Allergy Verified 10/27/24 19:42 Surgical - Exam Vital Signs Temp Pulse Resp BP Pulse Ox 98.2 F 90 18 120/66 99 10/27/24 14:06 10/27/24 14:06 10/27/24 14:06 10/27/24 14:06 10/27/24 14:06 - General well developed, well nourished, no distress - Respiratory normal respiratory effort - Abdomen Abdomen: soft, non tender, no guarding, no rigid, no rebound - Genitourinary normal penis with no external lesions, testicles non-tender - Rectum Rectum: normal sphincter tone, no masses, other (Prostate mildly enlarged but smooth) - Psychiatric oriented to time, oriented to person, oriented to place, speech is normal, memory intact Results - Labs 10/30/24 09:58 10/30/24 09:58 Abnormal Lab Results - Last 24 Hours (Table) 10/29/24 10/29/24 Range/Units 04:40 04:40 WBC 15.08 H (4.50-10.00) X 10*3/uL RBC 2.56 L (4.40-5.60) X 10*6/uL Hgb 8.7 L (13.0-17.0) g/dL Hct 26.8 L (39.6-50.0) % MCV 104.7 H (80.0-97.0) FL MCH 34.0 H (27.0-32.0) pg RDW 15.2 H (11.5-14.5) % Plt Count 138 L (140-440) X 10*3/uL Immature Gran # 0.12 H (0.00-0.04) X 10*3/uL Neutrophils # 12.99 H (1.80-7.70) X 10*3/uL Lymphocytes # 0.81 L (0.90-5.00) X 10*3/uL Chloride 111 H (96-109) mmol/L Carbon Dioxide 19.2 L (21.6-31.8) mmol/L Anion Gap 12.80 H (4.00-12.00) mmol/L BUN 53.3 H (9.0-27.0) mg/dL Creatinine 4.2 H (0.6-1.5) mg/dL Est GFR (CKD-EPI) 14 L (>=60) Calcium 8.0 L (8.7-10.3) mg/dL Microbiology - Last 24 Hours (Table) 10/27/24 16:15 Blood Culture - Preliminary Blood 10/27/24 15:20 Urine Culture - Preliminary Urine,Voided Gram Neg Bacilli Diabetes panel 10/29/24 Range/Units 04:40 Sodium 143 (135-145) mmol/L Potassium 3.6 (3.5-5.5) mmol/L Chloride 111 H (96-109) mmol/L Carbon Dioxide 19.2 L (21.6-31.8) mmol/L BUN 53.3 H (9.0-27.0) mg/dL Creatinine 4.2 H (0.6-1.5) mg/dL Glucose 103 (70-110) mg/dL Calcium 8.0 L (8.7-10.3) mg/dL Calcium panel 10/29/24 Range/Units 04:40 Calcium 8.0 L (8.7-10.3) mg/dL Pituitary panel 10/29/24 Range/Units 04:40 Sodium 143 (135-145) mmol/L Potassium 3.6 (3.5-5.5) mmol/L Chloride 111 H (96-109) mmol/L Carbon Dioxide 19.2 L (21.6-31.8) mmol/L BUN 53.3 H (9.0-27.0) mg/dL Creatinine 4.2 H (0.6-1.5) mg/dL Glucose 103 (70-110) mg/dL Calcium 8.0 L (8.7-10.3) mg/dL Adrenal panel 10/29/24 Range/Units 04:40 Sodium 143 (135-145) mmol/L Potassium 3.6 (3.5-5.5) mmol/L Chloride 111 H (96-109) mmol/L Carbon Dioxide 19.2 L (21.6-31.8) mmol/L BUN 53.3 H (9.0-27.0) mg/dL Creatinine 4.2 H (0.6-1.5) mg/dL Glucose 103 (70-110) mg/dL Calcium 8.0 L (8.7-10.3) mg/dL - Imaging CT scan - abdomen: report reviewed, image reviewed Assessment and Plan (1) UTI (urinary tract infection) Current Visit: Yes Status: Acute Code(s): N39.0 - URINARY TRACT INFECTION, SITE NOT SPECIFIED SNOMED Code(s): 08995676 Plan: Bladder scan shows adequate bladder emptying. CT scan showed no upper tract abnormalities. Continue cefepime. Given the history of prostatitis, it may be advisable to treat this UTI longer than what would otherwise be typical, but I will defer this to Dr. Holland. Time with Patient: Greater than 30
--- NOTE | 2024-10-30 19:47 | P.PN ---
Subjective Date of service for this note is 10/30/2024, patient seen and examined by me at bedside This is a pleasant 78 years old male with past medical history of multiple medical problems as below. 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 No headache dizziness weakness or numbness in 1 limb. He has chronically loose bowel movement in his ileostomy. Yesterday he vomited twice He denies smoking alcohol or illicit drugs Vitals reviewed, patient was tachycardic, tachypneic, he developed fever of 101 this morning. He has leukocytosis 26,000, hemoglobin 9.8, creatinine 2.6 and 2.7. Bilirubin 1.9. Carbon dioxide is 11 Lactic acid elevated at 1 4 came down to 1.3 CT of the abdomen pelvis showing cystitis with fat stranding and enlarged prostate correlate for PSA. Patient informed of the need to follow-up with urologist Right abdominal ostomy with no evidence of obstruction Chest x-ray is negative Blood cultures pending Patient received cefepime x 1 dose and IV vancomycin 10/29/2024 He still patient seen and examined by me at bedside Weak ankle has urinary symptoms of dysuria and suprapubic pain and tenderness He feels generally weak. He says he is peeing a lot Right lower quadrant ileostomy bag is working. His tachycardia and tachypnea improving, his fever improving as well His lactic acid improved down to 1.3 CT of the abdomen pelvis was reviewed showing cystitis and a large prostate Blood cultures pending Urine cultures pending Patient currently covered with ceftriaxone. IV vancomycin was discontinued. Infectious disease team following closely and adjust antibiotic accordingly Nephrology team also following closely Will consult urology team 10/30/2024 Patient still have urinary symptoms, he still complaining from severe dysuria and suprapubic pain and tenderness, suprapubic symptoms are actually less severe than yesterday I offered him to give him more treatment for his pain with urination with oral pills he declines. His WBC back to normal today 10.2, hemoglobin 9.4 Creatinine is elevated 4.9 Carbon dioxide is improved 25 Antibiotics were switched from ceftriaxone to cefepime IV fluid was switched from sodium bicarb to Ringer lactate Flomax added by urology service Plan of care discussed with the patient and all questions answered to his satisfaction Review of systems CONSTITUTIONAL: No fever, no malaise, no fatigue. HEENT: No recent visual problems or hearing problems. Denied any sore throat. CARDIOVASCULAR: No orthopnea, PND, no palpitations, no syncope. PULMONARY: No shortness of breath, no cough, no hemoptysis. GASTROINTESTINAL: No diarrhea, no nausea, no vomiting, no abdominal pain. Normoactive bowel sounds. GENITOURINARY: Denies any burning micturition, frequency, or urgency. MUSCULOSKELETAL/RHEUMATOLOGICAL: Denies any joint pain, swelling, or any muscle pain. ENDOCRINE: Denies any polyuria or polydipsia. Active Medications Generic Name Dose Route Start Last Admin Trade Name Freq PRN Reason Stop Dose Admin Acetaminophen 650 mg 10/27/24 17:44 10/28/24 04:56 Acetaminophen Tab 325 Mg Tab PO 650 mg Q6HR PRN Administration Mild Pain or Fever > 100.5 Acetaminophen 1,300 mg 10/28/24 09:00 10/30/24 17:02 Acetaminophen Tab 325 Mg Tab PO 1,300 mg TID TERE Administration Allopurinol 300 mg 10/28/24 09:00 10/30/24 10:32 Allopurinol 300 Mg Tab PO 300 mg DAILY TERE Administration Diazepam 5 mg 10/27/24 22:06 10/29/24 20:57 Diazepam 5 Mg Tab PO 5 mg TID PRN Administration Muscle Spasm Famotidine 20 mg 10/30/24 09:00 10/30/24 10:38 Famotidine 20 Mg/2 Ml Vial IV 10 mg Q24HR TERE Administration Heparin Sodium (Porcine) 5,000 unit 10/28/24 09:00 10/30/24 10:40 Heparin Sodium,Porcine 5,000 Unit/Ml 1 Ml Vial SQ Not Given Q12HR TERE Lactated Ringer's 1,000 mls @ 75 mls/hr 10/30/24 13:00 10/30/24 14:47 Lactated Ringers IV 75 mls/hr .[id number] TERE Administration Cefepime HCl 1 gm/ Sodium 50 mls @ 12.5 mls/hr 10/30/24 16:00 Chloride IVPB Q12H TERE Naloxone HCl 0.2 mg 10/27/24 17:44 Naloxone 0.4 Mg/Ml 1 Ml Vial IV Q2M PRN Opioid Reversal Ondansetron HCl 4 mg 10/27/24 17:44 Ondansetron 4 Mg/2 Ml Vial IVP Q8HR PRN Nausea And Vomiting Pregabalin 25 mg 10/28/24 09:00 10/30/24 17:02 Pregabalin 25 Mg Cap PO 25 mg TID TERE Administration Sodium Bicarbonate 1,300 mg 10/28/24 09:00 10/30/24 17:02 Sodium Bicarbonate Tab 650 Mg Tab PO 1,300 mg TID TERE Administration Tamsulosin HCl 0.4 mg 10/30/24 14:45 10/30/24 14:47 Tamsulosin 0.4 Mg Cap.Er.24h PO 0.4 mg DAILY TERE Administration Objective - Vital Signs Vital signs: Vital Signs Temp 98.5 F 10/30/24 12:30 Pulse 65 10/30/24 12:30 Resp 14 10/30/24 12:30 BP 126/65 10/30/24 12:30 Pulse Ox 98 10/30/24 12:30 FiO2 Intake & Output 10/30/24 10/30/24 10/31/24 06:59 18:59 06:59 Intake Total 1080 Balance 1080 Intake: Oral 1080 Other: Voiding Method Toilet Urinal Urinal # Voids 1 # Bowel Movements 1 - Exam -GENERAL: The patient is alert and oriented x3, not in any acute distress. Well developed, well nourished. Generally weak HEENT: Pupils are round and equally reacting to light. EOMI. No scleral icterus. No conjunctival pallor. Normocephalic, atraumatic. No pharyngeal erythema. No thyromegaly. CARDIOVASCULAR: S1 and S2 present. No murmurs, rubs, or gallops. PULMONARY: Chest is clear to auscultation, no wheezing , no crackles. -ABDOMEN: Soft, suprapubic tenderness, nondistended, normoactive bowel sounds. No palpable organomegaly. RLQ ileostomy MUSCULOSKELETAL: No joint swelling or deformity. EXTREMITIES: No cyanosis, clubbing, or pedal edema. NEUROLOGICAL: Gross neurological examination did not reveal any focal deficits. SKIN: No rashes. no petechiae. - Labs CBC & Chem 7: 10/30/24 09:58 10/30/24 09:58 Labs: Abnormal Lab Results - Last 24 Hours (Table) 10/30/24 10/30/24 Range/Units 09:58 09:58 RBC 2.79 L (4.30-5.90) m/uL Hgb 9.4 L (13.0-17.5) gm/dL Hct 29.7 L (39.0-53.0) % MCV 106.4 H (80.0-100.0) fL Neutrophils # 8.4 H (1.3-7.7) k/uL Lymphocytes # 0.8 L (1.0-4.8) k/uL BUN 62 H (9-20) mg/dL Creatinine 4.92 H (0.66-1.25) mg/dL Calcium 8.3 L (8.4-10.2) mg/dL Microbiology - Last 24 Hours (Table) 10/27/24 15:20 Urine Culture - Final Urine,Voided Enterobacter cloacae 10/27/24 16:15 Blood Culture - Preliminary Blood Assessment and Plan Assessment: Severe sepsis with leukocytosis and fever and tachypnea, improving Acute UTI and cystitis secondary to gram-negative bacilli, urine culture growing Enterococcus faecalis Generalized weakness secondary to above Acute kidney injury, with possible baseline of chronic kidney disease History of ileal tumor, noninvasive status post ileostomy Chronic anemia Enlarged prostate Plan: consult infectious disease team defer antibiotic management to ID team currently on cefepime Monitor creatinine and electrolytes closely Monitor culture results Continue with Ringer lactate Follow-up blood culture results Nephrology team consult consult urology team. Flomax added Labs and medication were reviewed.. Continue same treatment. Continue with symptomatic treatment. Resume home medication. Monitor labs and vitals. DVT and GI prophylaxis. Further recommendations as per clinical course of the patient DVT prophylaxis: Subcutaneous heparin GI Prophylaxis: Pepcid PT/OT: Home health care versus rehab Prognosis is guarded
[2024-10-30] MEDS ORDERED: CEFEPIME 1 GM in SODIUM CHLORIDE 0.9% 50 ML IVPB SCH (21:00)
[2024-10-31 11:46] LABS: African American GFR (CKD) 11 (>60 ml/min/1.73 sqM); Anion Gap 8 mmol/L; Blood Urea Nitrogen 62 mg/dL (9-20); Calcium 8.6 mg/dL (8.4-10.2); Carbon Dioxide 26 mmol/L (22-30); Chloride 106 mmol/L (98-107); Glucose 123 mg/dL (74-99); Non-African American GFR(CKD) 9 (>60 ml/min/1.73 sqM); Potassium 4.9 mmol/L (3.5-5.1); Sodium 140 mmol/L (137-145)
--- NOTE | 2024-10-31 12:23 | P.PN ---
Subjective Progress Note Date: 10/31/24 Principal diagnosis: Reason for follow-up is cystitis, leukocytosis Patient is a 78-year-old male with a past medical history significant for colon cancer, CKD, former smoker presenting to the hospital for evaluation of generalized weakness, patient did have fever elevated white count significantly positive UA with abnormal CT suggestive of cystitis prompted this consultation. On today's evaluation that is 10/31/2024,the patient denies any fever or any chills, patient is breathing comfortably on room air, the patient denies chest pain shortness of breath and no significant cough, patient denies abdominal pain, no nausea vomiting or diarrhea. Patient did have a creatinine of 5.2 with no CBC was done today blood culture has been negative Objective - Vital Signs Vital signs: Vital Signs Temp 97.5 F L 10/31/24 11:53 Pulse 66 10/31/24 11:53 Resp 14 10/31/24 11:53 BP 106/53 10/31/24 11:53 Pulse Ox 97 10/31/24 11:53 FiO2 Intake & Output 10/30/24 10/31/24 10/31/24 18:59 06:59 18:59 Intake Total 1080 540 Balance 1080 540 Intake: Oral 1080 540 Other: Voiding Method Urinal Toilet Toilet Urinal # Voids 2 # Bowel Movements 1 - Exam GENERAL DESCRIPTION: An elderly male up in the chair in no distress RESPIRATORY SYSTEM: Unlabored breathing , decreased breath sounds at bases HEART: S1 S2 regular rate and rhythm , ABDOMEN: Soft , no tenderness EXTREMITIES: No edema feet - Labs CBC & Chem 7: 10/30/24 09:58 10/31/24 11:02 Labs: Abnormal Lab Results - Last 24 Hours (Table) 10/31/24 Range/Units 11:02 BUN 62 H (9-20) mg/dL Creatinine 5.28 H (0.66-1.25) mg/dL Glucose 123 H (74-99) mg/dL Microbiology - Last 24 Hours (Table) 10/27/24 16:15 Blood Culture - Preliminary Blood 10/27/24 15:20 Urine Culture - Final Urine,Voided Enterobacter cloacae Assessment and Plan (1) Sepsis Current Visit: Yes Status: Acute Code(s): A41.9 - SEPSIS, UNSPECIFIED ORGANISM SNOMED Code(s): 93092629 (2) UTI (urinary tract infection) Current Visit: Yes Status: Acute Code(s): N39.0 - URINARY TRACT INFECTION, SITE NOT SPECIFIED SNOMED Code(s): 01469385 Plan: 1patient presented to hospital with sepsis in this patient who did have a fever tachycardia elevated white count source is likely UTI in this patient who did have evidence of cystitis on the CT significantly positive UA likely from enteric gram-negative pathogen less likely gram-positive. 2patient with elevated creatinine high risk of nephrotoxicity from vancomycin which has been discontinued 3patient blood culture so far urine is growing Enterobacter that is resistant to Rocephin, 4patient was started on cefepime yesterday to continue and see clinical response hopefully will transition to oral antibiotics on discharge multiple question concern answered in layman term Dictation was produced using [employer] dictation software. please excuse any grammatical, word or spelling errors. Time with Patient: Less than 30
--- NOTE | 2024-10-31 17:06 | P.PN ---
Subjective Patient is seen for follow-up for acute kidney injury. Maintained on IV fluids Serum creatinine increased to 5.2 today No urine retention noted. Urine output documented at 1620 mL for 24 hours. Vancomycin level 20.2 from 10/29/2024. Now discontinued Blood pressure has been on the lower side Objective - Vital Signs Vital signs: Vital Signs Temp 97.5 F L 10/31/24 11:53 Pulse 66 10/31/24 11:53 Resp 14 10/31/24 11:53 BP 106/53 10/31/24 11:53 Pulse Ox 97 10/31/24 11:53 FiO2 Intake & Output 10/30/24 10/31/24 10/31/24 18:59 06:59 18:59 Intake Total 1080 540 Balance 1080 540 Intake: Oral 1080 540 Other: Voiding Method Urinal Toilet Toilet Urinal # Voids 2 # Bowel Movements 1 - Exam Patient is sleeping. He is comfortable no acute distress. Examination of the heart S1 and S2 Examination of the lungs bilateral breath sounds are heard Abdomen is soft nontender. Ileostomy noted. [employer] exam grossly intact No edema noted in the lower extremities Moving all 4 extremities. - Labs CBC & Chem 7: 10/30/24 09:58 10/31/24 11:02 Labs: Abnormal Lab Results - Last 24 Hours (Table) 10/31/24 Range/Units 11:02 BUN 62 H (9-20) mg/dL Creatinine 5.28 H (0.66-1.25) mg/dL Glucose 123 H (74-99) mg/dL Microbiology - Last 24 Hours (Table) 10/27/24 16:15 Blood Culture - Preliminary Blood Assessment and Plan Assessment: 1. Acute kidney injury ATN secondary to vancomycin toxicity, hypotension and volume depletion. UA suggestive of UTI. No evidence of hydronephrosis on CT of the abdomen currently maintained on IV fluids. 2. Chronic kidney disease stage IIIb with baseline creatinine 1.7 to 1.9 mg/dL. Previous history of use of NSAIDs and history of nephrotoxicity from previous use of ampicillin. 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 3. Nonobstructive left 5 mm calculus 4. Severe metabolic acidosis secondary to GI fluid loss from the ileostomy along with lactic acidosis 5. UTI maintain on antibiotics 6. Sepsis from UTI. Urine culture is growing Enterobacter cloacae Plan: Continue with IV antibiotics Continue with IV fluids Repeat labs in a.m. Continue to avoid nephrotoxic medications Continue with oral sodium bicarb. Recommend to discontinue acetaminophen.
--- NOTE | 2024-10-31 21:57 | P.PN ---
Subjective Progress Note Date: 10/31/24 Principal diagnosis: UTI The patient is an 78-year-old white male with a history of recurrent UTIs and prostatitis. He states that he has undergone multiple cystoscopic procedures showing no evidence of bladder outflow obstruction. He is now admitted with a UTI and was initially treated with ceftriaxone. The urine culture showed Enterobacter, resistant to ceftriaxone, and he is now receiving cefepime. He does not feel that his urinary symptoms have yet improved. 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 He also states that the specimen cup into which he provided his urine sample was not sterile and he believes that the Enterobacter is a contaminant. Objective - Vital Signs Vital signs: Vital Signs Temp 98.1 F 10/31/24 02:00 Pulse 63 10/31/24 02:00 Resp 12 10/31/24 02:00 BP 113/57 10/31/24 02:00 Pulse Ox 96 10/31/24 02:00 FiO2 Intake & Output 10/30/24 10/31/24 10/31/24 18:59 06:59 18:59 Intake Total 1080 540 Balance 1080 540 Intake: Oral 1080 540 Other: Voiding Method Urinal Toilet # Voids 2 # Bowel Movements 1 - Constitutional General appearance: Present: average body habitus, cooperative, no acute distress - Psychiatric Psychiatric: Present: A&O x's 3 - Labs CBC & Chem 7: 10/30/24 09:58 10/31/24 11:02 Labs: Abnormal Lab Results - Last 24 Hours (Table) 10/30/24 10/30/24 Range/Units 09:58 09:58 RBC 2.79 L (4.30-5.90) m/uL Hgb 9.4 L (13.0-17.5) gm/dL Hct 29.7 L (39.0-53.0) % MCV 106.4 H (80.0-100.0) fL Neutrophils # 8.4 H (1.3-7.7) k/uL Lymphocytes # 0.8 L (1.0-4.8) k/uL BUN 62 H (9-20) mg/dL Creatinine 4.92 H (0.66-1.25) mg/dL Calcium 8.3 L (8.4-10.2) mg/dL Microbiology - Last 24 Hours (Table) 10/27/24 16:15 Blood Culture - Preliminary Blood 10/27/24 15:20 Urine Culture - Final Urine,Voided Enterobacter cloacae Assessment and Plan Assessment: The WBC count is decreasing as desired, but unfortunately renal function is wo rsening. (1) UTI (urinary tract infection) Current Visit: Yes Status: Acute Code(s): N39.0 - URINARY TRACT INFECTION, SITE NOT SPECIFIED SNOMED Code(s): 53262771 Plan: - Continue cefepime. - Continue to monitor renal function.
--- NOTE | 2024-11-01 06:19 | P.PN ---
Subjective Progress Note Date: 10/31/24 Date of service for this note is 10/30/2024, patient seen and examined by me at bedside This is a pleasant 78 years old male with past medical history of multiple medical problems as below. 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 No headache dizziness weakness or numbness in 1 limb. He has chronically loose bowel movement in his ileostomy. Yesterday he vomited twice He denies smoking alcohol or illicit drugs Vitals reviewed, patient was tachycardic, tachypneic, he developed fever of 101 this morning. He has leukocytosis 26,000, hemoglobin 9.8, creatinine 2.6 and 2.7. Bilirubin 1.9. Carbon dioxide is 11 Lactic acid elevated at 1 4 came down to 1.3 CT of the abdomen pelvis showing cystitis with fat stranding and enlarged prostate correlate for PSA. Patient informed of the need to follow-up with urologist Right abdominal ostomy with no evidence of obstruction Chest x-ray is negative Blood cultures pending Patient received cefepime x 1 dose and IV vancomycin 10/29/2024 He still patient seen and examined by me at bedside Weak ankle has urinary symptoms of dysuria and suprapubic pain and tenderness He feels generally weak. He says he is peeing a lot Right lower quadrant ileostomy bag is working. His tachycardia and tachypnea improving, his fever improving as well His lactic acid improved down to 1.3 CT of the abdomen pelvis was reviewed showing cystitis and a large prostate Blood cultures pending Urine cultures pending Patient currently covered with ceftriaxone. IV vancomycin was discontinued. Infectious disease team following closely and adjust antibiotic accordingly Nephrology team also following closely Will consult urology team 10/30/2024 Patient still have urinary symptoms, he still complaining from severe dysuria and suprapubic pain and tenderness, suprapubic symptoms are actually less severe than yesterday I offered him to give him more treatment for his pain with urination with oral pills he declines. His WBC back to normal today 10.2, hemoglobin 9.4 Creatinine is elevated 4.9 Carbon dioxide is improved 25 Antibiotics were switched from ceftriaxone to cefepime IV fluid was switched from sodium bicarb to Ringer lactate Flomax added by urology service Plan of care discussed with the patient and all questions answered to his satis faction 10/31/2024 Patient is seen in follow-up today with multiple consultations following. 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 Patient reports continued urinary symptoms including pain and tenderness with urination. Urine culture finalized showing Enterobacter cloqae with infectious disease following was maintained on ceftriaxone although resistant and has transition to cefepime. Urology also evaluating the patient with no plans of immediate surgical intervention recommending to continue with antibiotic therapy. Nephrology following as well as kidney functions continue to worsen. Patient reports he feels this is likely due to receiving vancomycin for 2 days while in the ER. Patient does have history of chronic kidney disease with creatinine 2-3 range. Patient is afebrile and will follow-up on repeat labs including CBC as well as kidney functions. Replace electrolytes per protocol. Review of systems: Constitutional: No reports of fatigue, fever, or chills Cardiovascular: No reports of chest pain or palpitations Respiratory: No reports of shortness of breath or cough GI: No reports of nausea, vomiting, or diarrhea : reports of continued dysuria, frequency, pain with urination Neurovascular: reports of some generalized weakness All medications have been reviewed Physical exam: -GENERAL: The patient is alert and oriented x3, not in any acute distress. Well developed, well nourished. Generally weak HEENT: Pupils are round and equally reacting to light. EOMI. No scleral icterus. No conjunctival pallor. Normocephalic, atraumatic. No pharyngeal erythema. No thyromegaly. CARDIOVASCULAR: S1 and S2 present. No murmurs, rubs, or gallops. PULMONARY: Chest is clear to auscultation, no wheezing , no crackles. -ABDOMEN: Soft, suprapubic tenderness, nondistended, normoactive bowel sounds. No palpable organomegaly. RLQ ileostomy MUSCULOSKELETAL: No joint swelling or deformity. EXTREMITIES: No cyanosis, clubbing, or pedal edema. NEUROLOGICAL: Gross neurological examination did not reveal any focal deficits. SKIN: No rashes. no petechiae. Assessment: Severe sepsis with leukocytosis and fever and tachypnea, present on admission secondary to urinary tract infection with cystitis, improving Acute UTI and cystitis secondary to gram-negative bacilli, urine culture growing Enterococcus cloacae, blood cultures are negative Generalized weakness secondary to above Acute kidney injury, likely acute tubular necrosis with chronic kidney disease history History of ileal tumor, noninvasive status post ileostomy Chronic anemia Enlarged prostate GI prophylaxis DVT prophylaxis Full code Plan: Infectious disease following his urine culture showing Enterobacter with resistance to ceftriaxone and has been transition to cefepime Kidney functions worsening and currently 5.2 today, will continue gentle hydration and follow-up on repeat labs. Patient believes his worsening kidney functions are due to receiving vancomycin for 2 days in the ER Patient continues to report significant pain and burning and frequency with urination, will continue current regimen. Urology has evaluated the patient with no plans of immediate surgical intervention at this time Home medications reviewed and resumed as appropriate Continue Flomax Encouraged increase activity as tolerated The impression and plan of care has been dictated by Barbi Feng, Nurse Practitioner as directed. Dr. Monet MD I have performed a history and examination and MDM of this patient, discussed the same with the dictator, and agree with the dictator's assessment and plan as written ,documented as a scribe. Based on total visit time, I have performed more than 50% of the visit. Objective - Vital Signs Vital signs: Vital Signs Temp 98.1 F 10/31/24 08:00 Pulse 64 10/31/24 08:00 Resp 14 10/31/24 08:00 BP 114/55 10/31/24 08:00 Pulse Ox 98 10/31/24 08:00 FiO2 Intake & Output 10/30/24 10/31/24 10/31/24 18:59 06:59 18:59 Intake Total 1080 540 Balance 1080 540 Intake: Oral 1080 540 Other: Voiding Method Urinal Toilet # Voids 2 # Bowel Movements 1 - Labs CBC & Chem 7: 10/30/24 09:58 10/31/24 11:02 Labs: Microbiology - Last 24 Hours (Table) 10/27/24 16:15 Blood Culture - Preliminary Blood 10/27/24 15:20 Urine Culture - Final Urine,Voided Enterobacter cloacae
[2024-11-01 09:13] LABS: Basophils # (A) 0.06 X 10*3/uL (0.00-0.10); Basophils % (A) 0.7 %; Eosinophils # (A) 0.33 X 10*3/uL (0.04-0.35); Eosinophils % (A) 3.7 %; HCT 29.4 % (39.6-50.0); HGB 9.4 g/dL (13.0-17.0); Lymphocytes # (A) 0.89 X 10*3/uL (0.90-5.00); MCH 34.1 pg (27.0-32.0); MCV 106.5 FL (80.0-97.0); Mean Platelet Volume 10.9 FL (9.5-12.2); Monocytes # (A) 0.78 X 10*3/uL (0.20-1.00); Monocytes % (A) 8.8 %; NRBC Per 100 WBC 0 X 10*3/uL (0.00-0.01); Neutrophils # (A) 6.76 X 10*3/uL (1.80-7.70); Neutrophils % (A) 75.8 %; Platelet Count 181 X 10*3/uL (140-440); RBC 2.76 X 10*6/uL (4.40-5.60); RDW 14.6 % (11.5-14.5); WBC 8.91 X 10*3/uL (4.50-10.00)
[2024-11-01 09:31] LABS: Magnesium 1.6 mg/dL (1.5-2.4)
[2024-11-01 09:41] LABS: ALT 120 U/L (10-49); AST 164 U/L (14-35); Albumin 3.2 g/dL (3.8-4.9); Albumin/Globulin Ratio 1.52 Ratio (1.60-3.17); Alkaline Phosphatase 83 U/L (41-126); BUN/Creat Ratio 11.71 Ratio (12.00-20.00); Blood Urea Nitrogen 57.4 mg/dL (9.0-27.0); Calcium 8.5 mg/dL (8.7-10.3); Carbon Dioxide 23.1 mmol/L (21.6-31.8); Chloride 108 mmol/L (96-109); Globulin 2.1 g/dL (1.6-3.3); Glucose 94 mg/dL (70-110); Potassium 4.5 mmol/L (3.5-5.5); Sodium 144 mmol/L (135-145); Total Bilirubin 0.3 mg/dL (0.3-1.2); Total Protein 5.3 g/dL (6.2-8.2)
--- NOTE | 2024-11-01 12:44 | P.PN ---
Subjective Patient is seen for follow-up for acute kidney injury. Maintained on IV fluids Serum creatinine decreased to 4.9 today No urine retention noted. Urine output not accurately charted.. Vancomycin level 20.2 from 10/29/2024. Now discontinued Blood pressure has been on the lower side Objective - Vital Signs Vital signs: Vital Signs Temp 98.3 F 11/01/24 02:00 Pulse 65 11/01/24 07:43 Resp 18 11/01/24 07:43 BP 143/65 11/01/24 07:43 Pulse Ox 93 L 11/01/24 07:43 FiO2 Intake & Output 10/31/24 11/01/24 11/01/24 18:59 06:59 18:59 Intake Total 250 Output Total 550 Balance -300 Intake: Oral 250 Output: Urine 550 Other: Voiding Method Toilet Urinal # Voids 3 2 - Exam Patient is sleeping. He is comfortable no acute distress. Examination of the heart S1 and S2 Examination of the lungs bilateral breath sounds are heard Abdomen is soft nontender. Ileostomy noted. [employer] exam grossly intact No edema noted in the lower extremities Moving all 4 extremities. - Labs CBC & Chem 7: 11/01/24 06:14 11/01/24 06:14 Labs: Abnormal Lab Results - Last 24 Hours (Table) 11/01/24 11/01/24 Range/Units 06:14 06:14 RBC 2.76 L (4.40-5.60) X 10*6/uL Hgb 9.4 L (13.0-17.0) g/dL Hct 29.4 L (39.6-50.0) % MCV 106.5 H (80.0-97.0) FL MCH 34.1 H (27.0-32.0) pg RDW 14.6 H (11.5-14.5) % Immature Gran # 0.09 H (0.00-0.04) X 10*3/uL Lymphocytes # 0.89 L (0.90-5.00) X 10*3/uL Anion Gap 12.90 H (4.00-12.00) mmol/L BUN 57.4 H (9.0-27.0) mg/dL Creatinine 4.9 H (0.6-1.5) mg/dL Est GFR (CKD-EPI) 11 L (>=60) BUN/Creatinine Ratio 11.71 L (12.00-20.00) Ratio Calcium 8.5 L (8.7-10.3) mg/dL AST 164 H (14-35) U/L ALT 120 H (10-49) U/L Total Protein 5.3 L (6.2-8.2) g/dL Albumin 3.2 L (3.8-4.9) g/dL Albumin/Globulin Ratio 1.52 L (1.60-3.17) Ratio Assessment and Plan Assessment: 1. Acute kidney injury ATN secondary to vancomycin toxicity, hypotension and volume depletion. UA suggestive of UTI. No evidence of hydronephrosis on CT of the abdomen currently maintained on IV fluids. 2. Chronic kidney disease stage IIIb with baseline creatinine 1.7 to 1.9 mg/dL. Previous history of use of NSAIDs and history of nephrotoxicity from previous use of ampicillin. 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 3. Nonobstructive left 5 mm calculus 4. Severe metabolic acidosis secondary to GI fluid loss from the ileostomy along with lactic acidosis 5. UTI maintain on antibiotics 6. Sepsis from UTI. Urine culture is growing Enterobacter cloacae Plan: Continue with IV antibiotics Continue with IV fluids Repeat labs in a.m. Continue to avoid nephrotoxic medications Continue with oral sodium bicarb. Recommend to discontinue acetaminophen. However patient would like to continue with the Tylenol as he has been taking it for more than 10 years
--- NOTE | 2024-11-01 14:42 | P.PN ---
Subjective Progress Note Date: 11/01/24 Principal diagnosis: Reason for follow-up is cystitis, leukocytosis Patient is a 78-year-old male with a past medical history significant for colon cancer, CKD, former smoker presenting to the hospital for evaluation of generalized weakness, patient did have fever elevated white count significantly positive UA with abnormal CT suggestive of cystitis prompted this consultation. On today's evaluation that is 11/01/2024,the patient remains to be afebrile, patient is on room air not requiring supplemental oxygen and denies any shortness of breath no chest pain or cough.Patient denies having any nausea or vomiting, no abdominal pain and no diarrhea still complaining of some blood in the urine has burning urination. Patient white count is 8.91, creatinine is 1.9 blood culture have been negative Objective - Vital Signs Vital signs: Vital Signs Temp 98.3 F 11/01/24 02:00 Pulse 65 11/01/24 07:43 Resp 18 11/01/24 07:43 BP 143/65 11/01/24 07:43 Pulse Ox 93 L 11/01/24 07:43 FiO2 Intake & Output 10/31/24 11/01/24 11/01/24 18:59 06:59 18:59 Intake Total 250 Output Total 550 Balance -300 Intake: Oral 250 Output: Urine 550 Other: Voiding Method Toilet Urinal # Voids 3 2 - Exam GENERAL DESCRIPTION: An elderly male up in the chair in no distress RESPIRATORY SYSTEM: Unlabored breathing , decreased breath sounds at bases HEART: S1 S2 regular rate and rhythm , ABDOMEN: Soft , no tenderness EXTREMITIES: No edema feet - Labs CBC & Chem 7: 11/01/24 06:14 11/01/24 06:14 Labs: Abnormal Lab Results - Last 24 Hours (Table) 10/31/24 11/01/24 11/01/24 Range/Units 11:02 06:14 06:14 RBC 2.76 L (4.40-5.60) X 10*6/uL Hgb 9.4 L (13.0-17.0) g/dL Hct 29.4 L (39.6-50.0) % MCV 106.5 H (80.0-97.0) FL MCH 34.1 H (27.0-32.0) pg RDW 14.6 H (11.5-14.5) % Immature Gran # 0.09 H (0.00-0.04) X 10*3/uL Lymphocytes # 0.89 L (0.90-5.00) X 10*3/uL Anion Gap 12.90 H (4.00-12.00) mmol/L BUN 62 H 57.4 H (9-20) mg/dL Creatinine 5.28 H 4.9 H (0.66-1.25) mg/dL Est GFR (CKD-EPI) 11 L (>=60) BUN/Creatinine Ratio 11.71 L (12.00-20.00) Ratio Glucose 123 H (74-99) mg/dL Calcium 8.5 L (8.7-10.3) mg/dL AST 164 H (14-35) U/L ALT 120 H (10-49) U/L Total Protein 5.3 L (6.2-8.2) g/dL Albumin 3.2 L (3.8-4.9) g/dL Albumin/Globulin Ratio 1.52 L (1.60-3.17) Ratio Assessment and Plan (1) Sepsis Current Visit: Yes Status: Acute Code(s): A41.9 - SEPSIS, UNSPECIFIED ORGANISM SNOMED Code(s): 03603321 (2) UTI (urinary tract infection) Current Visit: Yes Status: Acute Code(s): N39.0 - URINARY TRACT INFECTION, SITE NOT SPECIFIED SNOMED Code(s): 55531411 Plan: 1patient presented to hospital with sepsis in this patient who did have a fever tachycardia elevated white count source is likely UTI in this patient who did have evidence of cystitis on the CT significantly positive UA likely from enteric gram-negative pathogen less likely gram-positive. 2patient with elevated creatinine high risk of nephrotoxicity from vancomycin which has been discontinued 3patient blood culture so far urine is growing Enterobacter that is resistant to Rocephin, 4patient currently being treated cefepime, patient seem to be upset about getting vancomycin and causing his renal failure, multiple question concern answered in layman term follow-up continue with cefepime while inpatient Dictation was produced using [employer] software. please excuse any grammatical, word or spelling errors. Time with Patient: Less than 30
[2024-11-01] MEDS: ACETAMINOPHEN TAB 500 MG TAB PO PRN (15:34)
--- NOTE | 2024-11-01 20:10 | P.PN ---
Subjective Progress Note Date: 11/01/24 Principal diagnosis: UTI The patient is an 78-year-old white male with a history of recurrent UTIs and prostatitis. He states that he has undergone multiple cystoscopic procedures showing no evidence of bladder outflow obstruction. He is now admitted with a UTI and was initially treated with ceftriaxone. The urine culture showed Enterobacter, resistant to ceftriaxone, and he is now receiving cefepime. He feels that his urinary symptoms have improved a bit, but he continues to experience initial stream hematuria and dysuria within the glans penis. 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 He also states that the specimen cup into which he provided his urine sample was not sterile and he believes that the Enterobacter is a contaminant. Objective - Vital Signs Vital signs: Vital Signs Temp 98 F 11/01/24 19:48 Pulse 69 11/01/24 19:48 Resp 19 11/01/24 19:48 BP 126/59 11/01/24 19:48 Pulse Ox 99 11/01/24 19:48 FiO2 Intake & Output 11/01/24 11/01/24 11/02/24 06:59 18:59 06:59 Intake Total 250 2810 Output Total 550 275 Balance -300 2535 Intake: Intake, IV Titration 950 Amount Cefepime 1 gm In Sodium 50 Chloride 0.9% 50 ml @ 12. 5 mls/hr IVPB Q12H TERE Rx #:[id number] Lactated Ringers 1,000 ml 900 @ 75 mls/hr IV .[id number] TERE Rx#:[id number] Oral 250 1860 Output: Urine 550 275 Other: # Voids 2 2 - Constitutional General appearance: Present: average body habitus, cooperative, no acute distress - Psychiatric Psychiatric: Present: A&O x's 3 - Labs CBC & Chem 7: 11/01/24 06:14 11/01/24 06:14 Labs: Abnormal Lab Results - Last 24 Hours (Table) 11/01/24 11/01/24 Range/Units 06:14 06:14 RBC 2.76 L (4.40-5.60) X 10*6/uL Hgb 9.4 L (13.0-17.0) g/dL Hct 29.4 L (39.6-50.0) % MCV 106.5 H (80.0-97.0) FL MCH 34.1 H (27.0-32.0) pg RDW 14.6 H (11.5-14.5) % Immature Gran # 0.09 H (0.00-0.04) X 10*3/uL Lymphocytes # 0.89 L (0.90-5.00) X 10*3/uL Anion Gap 12.90 H (4.00-12.00) mmol/L BUN 57.4 H (9.0-27.0) mg/dL Creatinine 4.9 H (0.6-1.5) mg/dL Est GFR (CKD-EPI) 11 L (>=60) BUN/Creatinine Ratio 11.71 L (12.00-20.00) Ratio Calcium 8.5 L (8.7-10.3) mg/dL AST 164 H (14-35) U/L ALT 120 H (10-49) U/L Total Protein 5.3 L (6.2-8.2) g/dL Albumin 3.2 L (3.8-4.9) g/dL Albumin/Globulin Ratio 1.52 L (1.60-3.17) Ratio Assessment and Plan Assessment: The WBC count has normalized, and the serum creatinine level was slightly improved today. (1) UTI (urinary tract infection) Current Visit: Yes Status: Acute Code(s): N39.0 - URINARY TRACT INFECTION, SITE NOT SPECIFIED SNOMED Code(s): 01488935 Plan: I had a lengthy discussion with the patient and his . There is clinical evidence of improvement. 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 Actinotignum schaalii is typically sensitive to cephalosporins, and I have suggested to Dr. Cleaning that the optimal treatment in my opinion would be to be discharged home on IV cefepime to treat both organisms. I discussed this with Dr. Holland. The patient did question whether there might be value to undergoing cystoscopy, but he has undergone cystoscopy twice in the past year and I do not believe there would be any value to repeating cystoscopy at this time.
[2024-11-01] MEDS: ACETAMINOPHEN TAB 500 MG TAB PO SCH (21:42)
--- NOTE | 2024-11-02 05:49 | P.PN ---
Subjective Progress Note Date: 11/01/24 Date of service for this note is 10/30/2024, patient seen and examined by me at bedside This is a pleasant 78 years old male with past medical history of multiple medical problems as below. 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 No headache dizziness weakness or numbness in 1 limb. He has chronically loose bowel movement in his ileostomy. Yesterday he vomited twice He denies smoking alcohol or illicit drugs Vitals reviewed, patient was tachycardic, tachypneic, he developed fever of 101 this morning. He has leukocytosis 26,000, hemoglobin 9.8, creatinine 2.6 and 2.7. Bilirubin 1.9. Carbon dioxide is 11 Lactic acid elevated at 1 4 came down to 1.3 CT of the abdomen pelvis showing cystitis with fat stranding and enlarged prostate correlate for PSA. Patient informed of the need to follow-up with urologist Right abdominal ostomy with no evidence of obstruction Chest x-ray is negative Blood cultures pending Patient received cefepime x 1 dose and IV vancomycin 10/29/2024 He still patient seen and examined by me at bedside Weak ankle has urinary symptoms of dysuria and suprapubic pain and tenderness He feels generally weak. He says he is peeing a lot Right lower quadrant ileostomy bag is working. His tachycardia and tachypnea improving, his fever improving as well His lactic acid improved down to 1.3 CT of the abdomen pelvis was reviewed showing cystitis and a large prostate Blood cultures pending Urine cultures pending Patient currently covered with ceftriaxone. IV vancomycin was discontinued. Infectious disease team following closely and adjust antibiotic accordingly Nephrology team also following closely Will consult urology team 10/30/2024 Patient still have urinary symptoms, he still complaining from severe dysuria and suprapubic pain and tenderness, suprapubic symptoms are actually less severe than yesterday I offered him to give him more treatment for his pain with urination with oral pills he declines. His WBC back to normal today 10.2, hemoglobin 9.4 Creatinine is elevated 4.9 Carbon dioxide is improved 25 Antibiotics were switched from ceftriaxone to cefepime IV fluid was switched from sodium bicarb to Ringer lactate Flomax added by urology service Plan of care discussed with the patient and all questions answered to his satis faction 10/31/2024 Patient is seen in follow-up today with multiple consultations following. 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 Patient reports continued urinary symptoms including pain and tenderness with urination. Urine culture finalized showing Enterobacter cloqae with infectious disease following was maintained on ceftriaxone although resistant and has transition to cefepime. Urology also evaluating the patient with no plans of immediate surgical intervention recommending to continue with antibiotic therapy. Nephrology following as well as kidney functions continue to worsen. Patient reports he feels this is likely due to receiving vancomycin for 2 days while in the ER. Patient does have history of chronic kidney disease with creatinine 2-3 range. Patient is afebrile and will follow-up on repeat labs including CBC as well as kidney functions. Replace electrolytes per protocol. 11/01/2024 Patient is seen in follow-up today with multiple consultations following including urology and infectious disease. Patient is continued on cefepime as cultures finalized showing Enterobacter. Kidney functions remain elevated although slightly improved at 4.9 creatinine today. Patient reports having intermittent pain and decreased urine output but noted to have slight improvement in the symptoms today. Urology recommending IV antibiotic therapy on discharge and no plans for cystoscopy repeat at this time. Patient has had 2 previous cystoscopy's within the last year. Patient is afebrile white count is normal and will discuss further with infectious disease and urology regarding discharge planning. Review of systems: Constitutional: No reports of fatigue, fever, or chills Cardiovascular: No reports of chest pain or palpitations Respiratory: No reports of shortness of breath or cough GI: No reports of nausea, vomiting, or diarrhea : reports of continued dysuria, frequency, pain with urination Neurovascular: reports of some generalized weakness All medications have been reviewed Physical exam: -GENERAL: The patient is alert and oriented x 2-3, not in any acute distress. Well developed, well nourished. Generally weak HEENT: Pupils are round and equally reacting to light. EOMI. No scleral icterus. No conjunctival pallor. Normocephalic, atraumatic. No pharyngeal erythema. No thyromegaly. CARDIOVASCULAR: S1 and S2 present. No murmurs, rubs, or gallops. PULMONARY: Chest is clear to auscultation, no wheezing , no crackles. -ABDOMEN: Soft, suprapubic tenderness, nondistended, normoactive bowel sounds. No palpable organomegaly. RLQ ileostomy MUSCULOSKELETAL: No joint swelling or deformity. EXTREMITIES: No cyanosis, clubbing, or pedal edema. NEUROLOGICAL: Gross neurological examination did not reveal any focal deficits. SKIN: No rashes. no petechiae. Assessment: Severe sepsis with leukocytosis and fever and tachypnea, present on admission secondary to urinary tract infection with cystitis, improving Acute UTI and cystitis secondary to gram-negative bacilli, urine culture growing Enterococcus cloacae, blood cultures are negative Generalized weakness secondary to above Acute kidney injury, likely acute tubular necrosis with chronic kidney disease history History of ileal tumor, noninvasive status post ileostomy Chronic anemia Enlarged prostate GI prophylaxis DVT prophylaxis Full code Plan: Infectious disease following his urine culture showing Enterobacter with resistance to ceftriaxone and has been transition to cefepime Kidney functions elevated although slightly improved at 4.9 today. Will continue gentle hydration and follow-up on repeat labs. Patient believes his worsening kidney functions are due to receiving vancomycin for 2 days in the ER Patient continues to report significant pain and burning and frequency with urination, will continue current regimen. Urology has evaluated the patient with no plans of immediate surgical intervention at this time. Patient has had previous cystoscopies x 2 within the last year Home medications reviewed and resumed as appropriate Continue Flomax Encouraged increase activity as tolerated Social work consult for discharge planning if patient will require IV antibiotics and possible home care outpatient The impression and plan of care has been dictated by Nurse Greg Gutierrez as directed. Dr. Monet MD I have performed a history and examination and MDM of this patient, discussed the same with the dictator, and agree with the dictator's assessment and plan as written ,documented as a scribe. Based on total visit time, I have performed more than 50% of the visit. Objective - Vital Signs Vital signs: Vital Signs Temp 98.3 F 11/01/24 02:00 Pulse 65 11/01/24 07:43 Resp 18 02/20/25 07:43 BP 143/65 11/01/24 07:43 Pulse Ox 93 L 11/01/24 07:43 FiO2 Intake & Output 10/31/24 11/01/24 11/01/24 18:59 06:59 18:59 Intake Total 250 Output Total 550 Balance -300 Intake: Oral 250 Output: Urine 550 Other: Voiding Method Toilet Urinal # Voids 3 2 - Labs CBC & Chem 7: 11/01/24 06:14 11/01/24 06:14 Labs: Abnormal Lab Results - Last 24 Hours (Table) 10/31/24 11/01/24 11/01/24 Range/Units 11:02 06:14 06:14 RBC 2.76 L (4.40-5.60) X 10*6/uL Hgb 9.4 L (13.0-17.0) g/dL Hct 29.4 L (39.6-50.0) % MCV 106.5 H (80.0-97.0) FL MCH 34.1 H (27.0-32.0) pg RDW 14.6 H (11.5-14.5) % Immature Gran # 0.09 H (0.00-0.04) X 10*3/uL Lymphocytes # 0.89 L (0.90-5.00) X 10*3/uL Anion Gap 12.90 H (4.00-12.00) mmol/L BUN 62 H 57.4 H (9-20) mg/dL Creatinine 5.28 H 4.9 H (0.66-1.25) mg/dL Est GFR (CKD-EPI) 11 L (>=60) BUN/Creatinine Ratio 11.71 L (12.00-20.00) Ratio Glucose 123 H (74-99) mg/dL Calcium 8.5 L (8.7-10.3) mg/dL AST 164 H (14-35) U/L ALT 120 H (10-49) U/L Total Protein 5.3 L (6.2-8.2) g/dL Albumin 3.2 L (3.8-4.9) g/dL Albumin/Globulin Ratio 1.52 L (1.60-3.17) Ratio
[2024-11-02 10:48] LABS: Basophils # (A) 0.06 X 10*3/uL (0.00-0.10); Basophils % (A) 0.7 %; Eosinophils % (A) 3.7 %; HGB 8.5 g/dL (13.0-17.0); Lymphocytes # (A) 1.12 X 10*3/uL (0.90-5.00); Lymphocytes % (A) 13.9 %; MCH 33.9 pg (27.0-32.0); MCHC 31.5 g/dL (32.0-37.0); MCV 107.6 FL (80.0-97.0); Mean Platelet Volume 10.9 FL (9.5-12.2); Monocytes # (A) 0.81 X 10*3/uL (0.20-1.00); NRBC Per 100 WBC 0 X 10*3/uL (0.00-0.01); Neutrophils # (A) 5.66 X 10*3/uL (1.80-7.70); Neutrophils % (A) 70.2 %; Platelet Count 183 X 10*3/uL (140-440); RBC 2.51 X 10*6/uL (4.40-5.60); RDW 14.3 % (11.5-14.5); WBC 8.07 X 10*3/uL (4.50-10.00)
[2024-11-02 10:57] LABS: ALT 111 U/L (10-49); AST 111 U/L (14-35); Albumin 3.1 g/dL (3.8-4.9); Albumin/Globulin Ratio 1.63 Ratio (1.60-3.17); Alkaline Phosphatase 75 U/L (41-126); BUN/Creat Ratio 12.72 Ratio (12.00-20.00); Blood Urea Nitrogen 58.5 mg/dL (9.0-27.0); Calcium 8.3 mg/dL (8.7-10.3); Carbon Dioxide 22.8 mmol/L (21.6-31.8); Chloride 109 mmol/L (96-109); Globulin 1.9 g/dL (1.6-3.3); Glucose 89 mg/dL (70-110); Potassium 4.8 mmol/L (3.5-5.5); Sodium 142 mmol/L (135-145); Total Bilirubin <0.2 mg/dL (0.3-1.2)
--- NOTE | 2024-11-02 12:44 | P.PN ---
Subjective Progress Note Date: 11/02/24 Principal diagnosis: Reason for follow-up is cystitis, leukocytosis Patient is a 78-year-old male with a past medical history significant for colon cancer, CKD, former smoker presenting to the hospital for evaluation of generalized weakness, patient did have fever elevated white count significantly positive UA with abnormal CT suggestive of cystitis prompted this consultation. On today's evaluation that is 11/02/2024, the patient continues to be afebrile, the patient is on room air and breathing comfortably, the Pt denies having any chest pain or cough, the patient denies having any abdominal pain no vomiting or any diarrhea still complaining some burning of urine but no hematuria. Patient white count is 8.07, creatinine is 4.6 blood culture negative Objective - Vital Signs Vital signs: Vital Signs Temp 98.2 F 11/02/24 08:03 Pulse 84 11/02/24 08:03 Resp 16 11/02/24 08:03 BP 120/61 11/02/24 08:03 Pulse Ox 98 11/02/24 08:03 FiO2 Intake & Output 11/01/24 11/02/24 11/02/24 18:59 06:59 18:59 Intake Total 2810 120 Output Total 275 700 200 Balance 2535 -580 -200 Intake: Intake, IV Titration 950 Amount Cefepime 1 gm In Sodium 50 Chloride 0.9% 50 ml @ 12. 5 mls/hr IVPB Q12H [facility] Rx #:[id number] Lactated Ringers 1,000 ml 900 @ 75 mls/hr IV .[id number] [facility] Rx#:[id number] Oral 1860 120 Output: Urine 275 350 Post Void Residual 350 Stool 200 Other: Voiding Method Toilet Urinal # Voids 2 1 - Exam GENERAL DESCRIPTION: An elderly male up in the chair in no distress RESPIRATORY SYSTEM: Unlabored breathing , decreased breath sounds at bases HEART: S1 S2 regular rate and rhythm , ABDOMEN: Soft , no tenderness EXTREMITIES: No edema feet - Labs CBC & Chem 7: 11/02/24 04:32 11/02/24 04:32 Labs: Abnormal Lab Results - Last 24 Hours (Table) 11/02/24 Range/Units 04:32 RBC 2.51 L (4.40-5.60) X 10*6/uL Hgb 8.5 L (13.0-17.0) g/dL Hct 27.0 L (39.6-50.0) % MCV 107.6 H (80.0-97.0) FL MCH 33.9 H (27.0-32.0) pg MCHC 31.5 L (32.0-37.0) g/dL Immature Gran # 0.12 H (0.00-0.04) X 10*3/uL Microbiology - Last 24 Hours (Table) 10/27/24 16:15 Blood Culture - Final Blood Assessment and Plan (1) Sepsis Current Visit: Yes Status: Acute Code(s): A41.9 - SEPSIS, UNSPECIFIED ORGANISM SNOMED Code(s): 10964215 (2) UTI (urinary tract infection) Current Visit: Yes Status: Acute Code(s): N39.0 - URINARY TRACT INFECTION, SITE NOT SPECIFIED SNOMED Code(s): 68112927 Plan: 1patient presented to hospital with sepsis in this patient who did have a fever tachycardia elevated white count source is likely UTI in this patient who did have evidence of cystitis on the CT significantly positive UA likely from enteric gram-negative pathogen less likely gram-positive. 2patient with elevated creatinine high risk of nephrotoxicity from vancomycin which has been discontinued 3patient blood culture so far urine is growing Enterobacter that is resistant to Rocephin, 4patient still complaining of some urine burning of urine,Will repeat his urine culture continue with the cefepime over the weekend care discussed in detail with admitting team Dictation was produced using [employer] dictation software. please excuse any grammatical, word or spelling errors. Time with Patient: Less than 30
--- NOTE | 2024-11-02 12:52 | P.PN ---
Subjective Progress Note Date: 11/02/24 Principal diagnosis: UTI The patient is an 78-year-old white male with a history of recurrent UTIs and prostatitis. He states that he has undergone multiple cystoscopic procedures showing no evidence of bladder outflow obstruction. He is now admitted with a UTI and was initially treated with ceftriaxone. The urine culture showed Enterobacter, resistant to ceftriaxone, and he is now receiving cefepime. He feels that his urinary symptoms are gradually improving. His stream has improved, though he is uncertain whether or not this is the result of tamsulosin. His postvoid residual yesterday evening was approximately 50 cc. His urine this morning was clear. 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 He also states that the specimen cup into which he provided his urine sample was not sterile and he believes that the Enterobacter is a contaminant. Objective - Vital Signs Vital signs: Vital Signs Temp 98.2 F 11/02/24 08:03 Pulse 84 11/02/24 08:03 Resp 16 11/02/24 08:03 BP 120/61 11/02/24 08:03 Pulse Ox 98 11/02/24 08:03 FiO2 Intake & Output 11/01/24 11/02/24 11/02/24 18:59 06:59 18:59 Intake Total 2810 120 Output Total 275 700 200 Balance 2535 -580 -200 Intake: Intake, IV Titration 950 Amount Cefepime 1 gm In Sodium 50 Chloride 0.9% 50 ml @ 12. 5 mls/hr IVPB Q12H [facility] Rx #:[id number] Lactated Ringers 1,000 ml 900 @ 75 mls/hr IV .[id number] [facility] Rx#:[id number] Oral 1860 120 Output: Urine 275 350 Post Void Residual 350 Stool 200 Other: Voiding Method Toilet Urinal # Voids 2 1 - Constitutional General appearance: Present: average body habitus, cooperative, no acute distress - Psychiatric Psychiatric: Present: A&O x's 3 - Labs CBC & Chem 7: 11/02/24 04:32 11/02/24 04:32 Labs: Abnormal Lab Results - Last 24 Hours (Table) 11/02/24 11/02/24 Range/Units 04:32 04:32 RBC 2.51 L (4.40-5.60) X 10*6/uL Hgb 8.5 L (13.0-17.0) g/dL Hct 27.0 L (39.6-50.0) % MCV 107.6 H (80.0-97.0) FL MCH 33.9 H (27.0-32.0) pg MCHC 31.5 L (32.0-37.0) g/dL Immature Gran # 0.12 H (0.00-0.04) X 10*3/uL BUN 58.5 H (9.0-27.0) mg/dL Creatinine 4.6 H (0.6-1.5) mg/dL Est GFR (CKD-EPI) 12 L (>=60) Calcium 8.3 L (8.7-10.3) mg/dL Total Bilirubin <0.2 L (0.3-1.2) mg/dL AST 111 H (14-35) U/L ALT 111 H (10-49) U/L Total Protein 5.0 L (6.2-8.2) g/dL Albumin 3.1 L (3.8-4.9) g/dL Microbiology - Last 24 Hours (Table) 10/27/24 16:15 Blood Culture - Final Blood Assessment and Plan Assessment: The WBC count has normalized, and the serum creatinine level has decreased to 4.6 today. (1) UTI (urinary tract infection) Current Visit: Yes Status: Acute Code(s): N39.0 - URINARY TRACT INFECTION, SITE NOT SPECIFIED SNOMED Code(s): 77535984 Plan: Continue Cefepime.
[2024-11-02 13:58] VITALS: BMI 25.5
[2024-11-02 14:28] LABS: Appearance,Urine Clear (Clear); Bilirubin,Urine Negative (Negative); Blood,Urine Small (Negative); Color,Urine Colorless; Glucose,Urine (UA) Negative (Negative); Ketones,Urine Negative (Negative); Leukocyte Esterase,Urine Trace (Negative); Mucus,Urine Rare /hpf; Nitrite,Urine Negative (Negative); Protein,Urine Trace (Negative); RBC,Urine <1 /hpf (0-5); Specific Gravity,Urine 1.015 (1.001-1.035); Urobilinogen,Urine <2.0 mg/dL (<2.0); WBC,Urine 4 /hpf (0-5)
[2024-11-02] MEDS ORDERED: Magnesium Replacement Protocol 1 EACH MISC MISCELLANE PRN (20:48)
[2024-11-02] MEDS: MAGNESIUM SULFATE-D5W PMX 1 GM in DEXTROSE/WATER 1 100ML.BAG IVPB SCH (21:12)
--- NOTE | 2024-11-03 06:03 | P.PN ---
Subjective Progress Note Date: 11/02/24 Date of service for this note is 10/30/2024, patient seen and examined by me at bedside This is a pleasant 78 years old male with past medical history of multiple medical problems as below. 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 No headache dizziness weakness or numbness in 1 limb. He has chronically loose bowel movement in his ileostomy. Yesterday he vomited twice He denies smoking alcohol or illicit drugs Vitals reviewed, patient was tachycardic, tachypneic, he developed fever of 101 this morning. He has leukocytosis 26,000, hemoglobin 9.8, creatinine 2.6 and 2.7. Bilirubin 1.9. Carbon dioxide is 11 Lactic acid elevated at 1 4 came down to 1.3 CT of the abdomen pelvis showing cystitis with fat stranding and enlarged prostate correlate for PSA. Patient informed of the need to follow-up with urologist Right abdominal ostomy with no evidence of obstruction Chest x-ray is negative Blood cultures pending Patient received cefepime x 1 dose and IV vancomycin 10/29/2024 He still patient seen and examined by me at bedside Weak ankle has urinary symptoms of dysuria and suprapubic pain and tenderness He feels generally weak. He says he is peeing a lot Right lower quadrant ileostomy bag is working. His tachycardia and tachypnea improving, his fever improving as well His lactic acid improved down to 1.3 CT of the abdomen pelvis was reviewed showing cystitis and a large prostate Blood cultures pending Urine cultures pending Patient currently covered with ceftriaxone. IV vancomycin was discontinued. Infectious disease team following closely and adjust antibiotic accordingly Nephrology team also following closely Will consult urology team 10/30/2024 Patient still have urinary symptoms, he still complaining from severe dysuria and suprapubic pain and tenderness, suprapubic symptoms are actually less severe than yesterday I offered him to give him more treatment for his pain with urination with oral pills he declines. His WBC back to normal today 10.2, hemoglobin 9.4 Creatinine is elevated 4.9 Carbon dioxide is improved 25 Antibiotics were switched from ceftriaxone to cefepime IV fluid was switched from sodium bicarb to Ringer lactate Flomax added by urology service Plan of care discussed with the patient and all questions answered to his satis faction 10/31/2024 Patient is seen in follow-up today with multiple consultations following. 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 Patient reports continued urinary symptoms including pain and tenderness with urination. Urine culture finalized showing Enterobacter cloqae with infectious disease following was maintained on ceftriaxone although resistant and has transition to cefepime. Urology also evaluating the patient with no plans of immediate surgical intervention recommending to continue with antibiotic therapy. Nephrology following as well as kidney functions continue to worsen. Patient reports he feels this is likely due to receiving vancomycin for 2 days while in the ER. Patient does have history of chronic kidney disease with creatinine 2-3 range. Patient is afebrile and will follow-up on repeat labs including CBC as well as kidney functions. Replace electrolytes per protocol. 11/01/2024 Patient is seen in follow-up today with multiple consultations following including urology and infectious disease. Patient is continued on cefepime as cultures finalized showing Enterobacter. Kidney functions remain elevated although slightly improved at 4.9 creatinine today. Patient reports having intermittent pain and decreased urine output but noted to have slight improvement in the symptoms today. Urology recommending IV antibiotic therapy on discharge and no plans for cystoscopy repeat at this time. Patient has had 2 previous cystoscopy's within the last year. Patient is afebrile white count is normal and will discuss further with infectious disease and urology regarding discharge planning. 11/02/2024 Patient is seen in follow-up today with nephrology and infectious disease following. Urology has evaluated the patient recommending IV antibiotic therapy and outpatient follow-up. Patient is continued on cefepime and will continue for now. Discussed with infectious disease and will continue IV antibiotic therapy over the weekend and monitor kidney functions closely as creatinine is improving. Patient is voiding and denies significant pain with urination. Patient does have some lower extremity swelling and recommend Bal wraps or compression stockings and patient reports they will improve on their own. Encouraged increase activity and recommend walking more frequently. Review of systems: Constitutional: No reports of fatigue, fever, or chills Cardiovascular: No reports of chest pain or palpitations Respiratory: No reports of shortness of breath or cough GI: No reports of nausea, vomiting, or diarrhea : reports of continued dysuria, frequency, pain with urination Neurovascular: reports of some generalized weakness, reports some very minimal lower extremity swelling All medications have been reviewed Physical exam: GENERAL: The patient is alert and oriented x 2-3, not in any acute distress. Well developed, well nourished. Generally weak HEENT: Pupils are round and equally reacting to light. EOMI. No scleral icterus. No conjunctival pallor. Normocephalic, atraumatic. No pharyngeal erythema. No thyromegaly. CARDIOVASCULAR: S1 and S2 present. No murmurs, rubs, or gallops. PULMONARY: Chest is clear to auscultation, no wheezing , no crackles. ABDOMEN: Soft, suprapubic tenderness, nondistended, normoactive bowel sounds. No palpable organomegaly. RLQ ileostomy MUSCULOSKELETAL: No joint swelling or deformity. EXTREMITIES: No cyanosis, clubbing, faint lower extremity edema noted, non- pitting NEUROLOGICAL: Gross neurological examination did not reveal any focal deficits. SKIN: No rashes. no petechiae. Assessment: Severe sepsis with leukocytosis and fever and tachypnea, present on admission secondary to urinary tract infection with cystitis, improving Acute UTI and cystitis secondary to Enterococcus cloacae, blood cultures are negative Generalized weakness secondary to above Acute kidney injury, likely acute tubular necrosis with chronic kidney disease history, trending down History of ileal tumor, noninvasive status post ileostomy Chronic anemia Enlarged prostate GI prophylaxis DVT prophylaxis Full code Plan: Infectious disease following his urine culture showing Enterobacter with resistance to ceftriaxone and has been transition to cefepime and will continue with IV antibiotics over the weekend with close monitoring of kidney functions as they are improving and will continue gentle hydration per nephrology with lactated Ringer's. Repeat labs in the a.m. Urology has evaluated the patient with no plans of immediate surgical i ntervention at this time. Urology recommends continued IV antibiotic therapy and outpatient follow-up. Patient has had previous cystoscopies x 2 within the last year Home medications reviewed and resumed as appropriate Continue Flomax Encouraged increase activity as tolerated. Patient is having some lower extremity swelling very minimal and recommend Bal wraps or compression stockings and patient is refusing reporting they will improve on their own. Encourage patient to elevate lower extremities while at rest although patient sits at the side of the bed most of the day with legs dependent Social work following for discharge planning if patient will require IV antibiotics and possible home care outpatient Possible discharge planning on Tuesday if kidney functions have improved The impression and plan of care has been dictated by Barbi Feng, Nurse Practitioner as directed. Dr. Monet MD I have performed a history and examination and MDM of this patient, discussed the same with the dictator, and agree with the dictator's assessment and plan as written ,documented as a scribe. Based on total visit time, I have performed more than 50% of the visit. Objective - Vital Signs Vital signs: Vital Signs Temp 98.2 F 11/02/24 08:03 Pulse 84 11/02/24 08:03 Resp 16 11/02/24 08:03 BP 120/61 11/02/24 08:03 Pulse Ox 98 11/02/24 08:03 FiO2 Intake & Output 11/01/24 11/02/24 11/02/24 18:59 06:59 18:59 Intake Total 2810 120 Output Total 275 700 200 Balance 2535 -580 -200 Intake: Intake, IV Titration 950 Amount Cefepime 1 gm In Sodium 50 Chloride 0.9% 50 ml @ 12. 5 mls/hr IVPB Q12H [facility] Rx #:[id number] Lactated Ringers 1,000 ml 900 @ 75 mls/hr IV .[id number] [facility] Rx#:[id number] Oral 1860 120 Output: Urine 275 350 Post Void Residual 350 Stool 200 Other: Voiding Method Toilet Urinal # Voids 2 1 - Labs CBC & Chem 7: 11/02/24 04:32 11/02/24 04:32 Labs: Microbiology - Last 24 Hours (Table) 10/27/24 16:15 Blood Culture - Final Blood
[2024-11-03 09:58] LABS: Basophils # (A) 0.05 X 10*3/uL (0.00-0.10); Basophils % (A) 0.7 %; Eosinophils # (A) 0.27 X 10*3/uL (0.04-0.35); Eosinophils % (A) 3.8 %; HCT 25.4 % (39.6-50.0); Lymphocytes # (A) 1.16 X 10*3/uL (0.90-5.00); Lymphocytes % (A) 16.5 %; MCH 33.6 pg (27.0-32.0); MCHC 31.5 g/dL (32.0-37.0); MCV 106.7 FL (80.0-97.0); Mean Platelet Volume 10.8 FL (9.5-12.2); Monocytes # (A) 0.56 X 10*3/uL (0.20-1.00); NRBC Per 100 WBC 0 X 10*3/uL (0.00-0.01); Neutrophils % (A) 69.6 %; Platelet Count 192 X 10*3/uL (140-440); RBC 2.38 X 10*6/uL (4.40-5.60); WBC 7.04 X 10*3/uL (4.50-10.00)
[2024-11-03 10:14] LABS: BUN/Creat Ratio 14.31 Ratio (12.00-20.00); Blood Urea Nitrogen 60.1 mg/dL (9.0-27.0); Calcium 8.2 mg/dL (8.7-10.3); Carbon Dioxide 23.7 mmol/L (21.6-31.8); Chloride 109 mmol/L (96-109); Glucose 83 mg/dL (70-110); Magnesium 1.8 mg/dL (1.5-2.4); Sodium 142 mmol/L (135-145)
--- NOTE | 2024-11-03 12:36 | P.PN ---
Subjective Progress Note Date: 11/03/24 Principal diagnosis: Reason for follow-up is cystitis, leukocytosis Patient is a 78-year-old male with a past medical history significant for colon cancer, CKD, former smoker presenting to the hospital for evaluation of generalized weakness, patient did have fever elevated white count significantly positive UA with abnormal CT suggestive of cystitis prompted this consultation. On today's evaluation that is 11/03/2024, patient did not have any fever and denies any chills, patient is breathing comfortably on room air, patient with no chest pain or cough patient did not have any abdominal pain nausea vomiting or any loose stools, some improvement in the urinary symptoms. Patient white count 7.04, creatinine is 4.2 repeat urine is significantly improved with a trace leukocyte Estrace blood culture negative Objective - Vital Signs Vital signs: Vital Signs Temp 98.2 F 11/03/24 07:09 Pulse 65 11/03/24 08:00 Resp 16 11/03/24 08:00 BP 139/67 11/03/24 07:09 Pulse Ox 96 11/03/24 07:09 FiO2 Intake & Output 11/02/24 11/03/24 11/03/24 18:59 06:59 18:59 Intake Total 1520 1075 Output Total 825 1275 200 Balance 695 -200 -200 Weight 76.204 kg Intake: Intake, IV Titration 1075 Amount Cefepime 1 gm In Sodium 50 Chloride 0.9% 50 ml @ 12. 5 mls/hr IVPB Q12H TERE Rx #:[id number] Lactated Ringers 1,000 ml 825 @ 75 mls/hr IV .[id number] TERE Rx#:[id number] Magnesium Sulfate-D5w Pmx 200 1 gm In Dextrose/Water 1 100ml.bag @ 100 mls/hr IVPB Q1H TERE Rx#: [id number] Oral 1520 Output: Urine 625 1275 200 Stool 200 Other: Voiding Method Toilet Toilet Toilet Urinal Urinal Urinal - Exam GENERAL DESCRIPTION: An elderly male up in the chair in no distress RESPIRATORY SYSTEM: Unlabored breathing , decreased breath sounds at bases HEART: S1 S2 regular rate and rhythm , ABDOMEN: Soft , no tenderness EXTREMITIES: No edema feet - Labs CBC & Chem 7: 11/03/24 05:10 11/03/24 05:10 Labs: Abnormal Lab Results - Last 24 Hours (Table) 11/02/24 11/02/24 11/03/24 Range/Units 04:32 14:09 05:10 RBC 2.38 L (4.40-5.60) X 10*6/uL Hgb 8.0 L (13.0-17.0) g/dL Hct 25.4 L (39.6-50.0) % MCV 106.7 H (80.0-97.0) FL MCH 33.6 H (27.0-32.0) pg MCHC 31.5 L (32.0-37.0) g/dL Immature Gran # 0.10 H (0.00-0.04) X 10*3/uL BUN (9.0-27.0) mg/dL Creatinine (0.6-1.5) mg/dL Est GFR (CKD-EPI) (>=60) Calcium (8.7-10.3) mg/dL Magnesium 1.4 L (1.5-2.4) mg/dL Urine Protein Trace H (Negative) Urine Blood Small H (Negative) Ur Leukocyte Esterase Trace H (Negative) Urine Mucus Rare H (None) /hpf 11/03/24 Range/Units 05:10 RBC (4.40-5.60) X 10*6/uL Hgb (13.0-17.0) g/dL Hct (39.6-50.0) % MCV (80.0-97.0) FL MCH (27.0-32.0) pg MCHC (32.0-37.0) g/dL Immature Gran # (0.00-0.04) X 10*3/uL BUN 60.1 H (9.0-27.0) mg/dL Creatinine 4.2 H (0.6-1.5) mg/dL Est GFR (CKD-EPI) 14 L (>=60) Calcium 8.2 L (8.7-10.3) mg/dL Magnesium (1.5-2.4) mg/dL Urine Protein (Negative) Urine Blood (Negative) Ur Leukocyte Esterase (Negative) Urine Mucus (None) /hpf Assessment and Plan (1) Sepsis Current Visit: Yes Status: Acute Code(s): A41.9 - SEPSIS, UNSPECIFIED ORGANISM SNOMED Code(s): 07046367 (2) UTI (urinary tract infection) Current Visit: Yes Status: Acute Code(s): N39.0 - URINARY TRACT INFECTION, SITE NOT SPECIFIED SNOMED Code(s): 28066875 Plan: 1patient presented to hospital with sepsis in this patient who did have a fever tachycardia elevated white count source is likely UTI in this patient who did have evidence of cystitis on the CT significantly positive UA likely from enteric gram-negative pathogen less likely gram-positive. 2patient blood culture so far urine is growing Enterobacter that is resistant to Rocephin 3-patient mention history of recurrent prostatitis and his research mentioned likely infecting organism is Actinotignum schaalii however it has never been growing in the cultures 4patient mention improvement in his symptoms a repeat UA is significantly clear, patient to continue with cefepime over the weekend as he seemed to be not interested in getting antibiotic at home or oral Cipro, multiple question answered Dictation was produced using [employer] dictation software. please excuse any grammatical, word or spelling errors. Time with Patient: Less than 30
[2024-11-03] MEDS: DARBEPOETIN ALFA 60 MCG/0.3 ML SYRINGE SQ SCH (12:58)
[2024-11-03 18:17] LABS: % Iron Saturation 31.9 (15.00-50.00)
--- NOTE | 2024-11-03 20:12 | P.PN ---
Subjective Progress Note Date: 11/03/24 Date of service for this note is 10/30/2024, patient seen and examined by me at bedside This is a pleasant 78 years old male with past medical history of multiple medical problems as below. 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 No headache dizziness weakness or numbness in 1 limb. He has chronically loose bowel movement in his ileostomy. Yesterday he vomited twice He denies smoking alcohol or illicit drugs Vitals reviewed, patient was tachycardic, tachypneic, he developed fever of 101 this morning. He has leukocytosis 26,000, hemoglobin 9.8, creatinine 2.6 and 2.7. Bilirubin 1.9. Carbon dioxide is 11 Lactic acid elevated at 1 4 came down to 1.3 CT of the abdomen pelvis showing cystitis with fat stranding and enlarged prostate correlate for PSA. Patient informed of the need to follow-up with urologist Right abdominal ostomy with no evidence of obstruction Chest x-ray is negative Blood cultures pending Patient received cefepime x 1 dose and IV vancomycin 10/29/2024 He still patient seen and examined by me at bedside Weak ankle has urinary symptoms of dysuria and suprapubic pain and tenderness He feels generally weak. He says he is peeing a lot Right lower quadrant ileostomy bag is working. His tachycardia and tachypnea improving, his fever improving as well His lactic acid improved down to 1.3 CT of the abdomen pelvis was reviewed showing cystitis and a large prostate Blood cultures pending Urine cultures pending Patient currently covered with ceftriaxone. IV vancomycin was discontinued. Infectious disease team following closely and adjust antibiotic accordingly Nephrology team also following closely Will consult urology team 10/30/2024 Patient still have urinary symptoms, he still complaining from severe dysuria and suprapubic pain and tenderness, suprapubic symptoms are actually less severe than yesterday I offered him to give him more treatment for his pain with urination with oral pills he declines. His WBC back to normal today 10.2, hemoglobin 9.4 Creatinine is elevated 4.9 Carbon dioxide is improved 25 Antibiotics were switched from ceftriaxone to cefepime IV fluid was switched from sodium bicarb to Ringer lactate Flomax added by urology service Plan of care discussed with the patient and all questions answered to his satisfaction 10/31/2024 Patient is seen in follow-up today with multiple consultations following. 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 Patient reports continued urinary symptoms including pain and tenderness with urination. Urine culture finalized showing Enterobacter cloqae with infectious disease following was maintained on ceftriaxone although resistant and has transition to cefepime. Urology also evaluating the patient with no plans of immediate surgical intervention recommending to continue with antibiotic therapy. Nephrology following as well as kidney functions continue to worsen. Patient reports he feels this is likely due to receiving vancomycin for 2 days while in the ER. Patient does have history of chronic kidney disease with creatinine 2-3 range. Patient is afebrile and will follow-up on repeat labs including CBC as well as kidney functions. Replace electrolytes per protocol. 11/01/2024 Patient is seen in follow-up today with multiple consultations following including urology and infectious disease. Patient is continued on cefepime as cultures finalized showing Enterobacter. Kidney functions remain elevated although slightly improved at 4.9 creatinine today. Patient reports having intermittent pain and decreased urine output but noted to have slight improvement in the symptoms today. Urology recommending IV antibiotic therapy on discharge and no plans for cystoscopy repeat at this time. Patient has had 2 previous cystoscopy's within the last year. Patient is afebrile white count is normal and will discuss further with infectious disease and urology regarding discharge planning. 11/02/2024 Patient is seen in follow-up today with nephrology and infectious disease following. Urology has evaluated the patient recommending IV antibiotic therapy and outpatient follow-up. Patient is continued on cefepime and will continue for now. Discussed with infectious disease and will continue IV antibiotic therapy over the weekend and monitor kidney functions closely as creatinine is improving. Patient is voiding and denies significant pain with urination. Patient does have some lower extremity swelling and recommend Bal wraps or compression stockings and patient reports they will improve on their own. Encouraged increase activity and recommend walking more frequently. 11/03/2024 Patient is evaluated today in follow up on the medical floor. His labs are currently pending from today still. He has been urinating without difficultly and reports he has been refusing his flomax due to increased urination. 2850 mls of urine output in the last 24 hours. Patient remains on IV cefepime for the enterobacter UTI. Review of systems: Constitutional: No reports of fatigue, fever, or chills Cardiovascular: No reports of chest pain or palpitations Respiratory: No reports of shortness of breath or cough GI: No reports of nausea, vomiting, or diarrhea : reports of continued dysuria, frequency, pain with urination Neurovascular: reports of some generalized weakness, reports some very minimal lower extremity swelling All medications have been reviewed Physical exam: GENERAL: The patient is alert and oriented x 2-3, not in any acute distress. Well developed, well nourished. Generally weak HEENT: Pupils are round and equally reacting to light. EOMI. No scleral icterus. No conjunctival pallor. Normocephalic, atraumatic. No pharyngeal erythema. No thyromegaly. CARDIOVASCULAR: S1 and S2 present. No murmurs, rubs, or gallops. PULMONARY: Chest is clear to auscultation, no wheezing , no crackles. ABDOMEN: Soft, suprapubic tenderness, nondistended, normoactive bowel sounds. No palpable organomegaly. RLQ ileostomy MUSCULOSKELETAL: No joint swelling or deformity. EXTREMITIES: No cyanosis, clubbing, faint lower extremity edema noted, non- pitting NEUROLOGICAL: Gross neurological examination did not reveal any focal deficits. SKIN: No rashes. no petechiae. Assessment: Severe sepsis with leukocytosis and fever and tachypnea, present on admission secondary to urinary tract infection with cystitis, improving Acute UTI and cystitis secondary to Enterococcus cloacae, blood cultures are negative Generalized weakness secondary to above Acute kidney injury, likely acute tubular necrosis with chronic kidney disease history, trending down History of ileal tumor, noninvasive status post ileostomy Chronic anemia; macrocytic Enlarged prostate GI prophylaxis DVT prophylaxis Full code Plan: Infectious disease following his urine culture showing Enterobacter with resistance to ceftriaxone and has been transition to cefepime and will continue with IV antibiotics over the weekend with close monitoring of kidney functions as they are improving and will continue gentle hydration per nephrology with lactated Ringer's. Repeat labs in the a.m. Urology has evaluated the patient with no plans of immediate surgical intervention at this time. Urology recommends continued IV antibiotic therapy and outpatient follow-up. Patient has had previous cystoscopies x 2 within the last year Home medications reviewed and resumed as appropriate Continue Flomax although patient reports he has been refusing this medication. Encouraged increase activity as tolerated. Patient is having some lower extremity swelling very minimal and recommend Bal wraps or compression stockings and patient is refusing reporting they will improve on their own. Encourage patient to elevate lower extremities while at rest although patient sits at the side of the bed most of the day with legs dependent. Peripheral edema is improved today. Social work following for discharge planning if patient will require IV antibiotics and possible home care outpatient Possible discharge planning on Tuesday if kidney functions have improved The impression and plan of care has been dictated by Funmilayo Tabor Nurse Practitioner as directed. Dr. Monet MD I have performed a history and examination and MDM of this patient, discussed the same with the dictator, and agree with the dictator's assessment and plan as written ,documented as a scribe. Based on total visit time, I have performed more than 50% of the visit. Objective - Vital Signs Vital signs: Vital Signs Temp 98.1 F 11/03/24 13:35 Pulse 61 11/03/24 13:35 Resp 16 11/03/24 13:35 BP 132/52 11/03/24 13:35 Pulse Ox 96 11/03/24 13:35 FiO2 Intake & Output 11/02/24 11/03/24 11/03/24 18:59 06:59 18:59 Intake Total 1520 1075 Output Total 825 1275 550 Balance 695 -200 -550 Weight 76.204 kg Intake: Intake, IV Titration 1075 Amount Cefepime 1 gm In Sodium 50 Chloride 0.9% 50 ml @ 12. 5 mls/hr IVPB Q12H TERE Rx #:[id number] Lactated Ringers 1,000 ml 825 @ 75 mls/hr IV .[id number] TERE Rx#:[id number] Magnesium Sulfate-D5w Pmx 200 1 gm In Dextrose/Water 1 100ml.bag @ 100 mls/hr IVPB Q1H TERE Rx#: [id number] Oral 1520 Output: Urine 625 1275 550 Stool 200 Other: Voiding Method Toilet Toilet Toilet Urinal Urinal Urinal - Labs CBC & Chem 7: 11/03/24 05:10 11/03/24 05:10 Labs: Abnormal Lab Results - Last 24 Hours (Table) 11/02/24 11/02/24 11/03/24 Range/Units 04:32 14:09 05:10 RBC 2.38 L (4.40-5.60) X 10*6/uL Hgb 8.0 L (13.0-17.0) g/dL Hct 25.4 L (39.6-50.0) % MCV 106.7 H (80.0-97.0) FL MCH 33.6 H (27.0-32.0) pg MCHC 31.5 L (32.0-37.0) g/dL Immature Gran # 0.10 H (0.00-0.04) X 10*3/uL BUN (9.0-27.0) mg/dL Creatinine (0.6-1.5) mg/dL Est GFR (CKD-EPI) (>=60) Calcium (8.7-10.3) mg/dL Magnesium 1.4 L (1.5-2.4) mg/dL Urine Protein Trace H (Negative) Urine Blood Small H (Negative) Ur Leukocyte Esterase Trace H (Negative) Urine Mucus Rare H (None) /hpf 11/03/24 Range/Units 05:10 RBC (4.40-5.60) X 10*6/uL Hgb (13.0-17.0) g/dL Hct (39.6-50.0) % MCV (80.0-97.0) FL MCH (27.0-32.0) pg MCHC (32.0-37.0) g/dL Immature Gran # (0.00-0.04) X 10*3/uL BUN 60.1 H (9.0-27.0) mg/dL Creatinine 4.2 H (0.6-1.5) mg/dL Est GFR (CKD-EPI) 14 L (>=60) Calcium 8.2 L (8.7-10.3) mg/dL Magnesium (1.5-2.4) mg/dL Urine Protein (Negative) Urine Blood (Negative) Ur Leukocyte Esterase (Negative) Urine Mucus (None) /hpf Assessment and Plan Time with Patient: Less than 30
[2024-11-03] MEDS: MAGNESIUM SULFATE-D5W PMX 1 GM in DEXTROSE/WATER 1 100ML.BAG IVPB ONE (21:28)
[2024-11-04 09:31] LABS: Basophils # (A) 0.05 X 10*3/uL (0.00-0.10); Basophils % (A) 0.7 %; Eosinophils # (A) 0.22 X 10*3/uL (0.04-0.35); Eosinophils % (A) 3.2 %; HCT 25.4 % (39.6-50.0); HGB 8.1 g/dL (13.0-17.0); Lymphocytes % (A) 17.7 %; MCHC 31.9 g/dL (32.0-37.0); MCV 106.7 FL (80.0-97.0); Mean Platelet Volume 10.8 FL (9.5-12.2); Monocytes % (A) 8.8 %; NRBC Per 100 WBC 0 X 10*3/uL (0.00-0.01); Neutrophils # (A) 4.63 X 10*3/uL (1.80-7.70); Neutrophils % (A) 68.4 %; Platelet Count 212 X 10*3/uL (140-440); RBC 2.38 X 10*6/uL (4.40-5.60); WBC 6.78 X 10*3/uL (4.50-10.00)
[2024-11-04] MEDS: FAMOTIDINE 20 MG TAB PO SCH (09:35)
[2024-11-04] MEDS: FOLIC ACID 1 MG TAB PO SCH (09:35)
--- NOTE | 2024-11-04 11:15 | P.PN ---
Subjective Progress Note Date: 11/04/24 Principal diagnosis: UTI The patient is an 78-year-old white male with a history of recurrent UTIs and prostatitis. He states that he has undergone multiple cystoscopic procedures showing no evidence of bladder outflow obstruction. He is now admitted with a UTI and was initially treated with ceftriaxone. The urine culture showed Enterobacter, resistant to ceftriaxone, and he is now receiving cefepime. He continues to report dysuria and irritative voiding symptoms. His stream improved, though he is uncertain whether or not this is the result of tamsulosin. His postvoid residual yesterday evening was approximately 50 cc. His urine this morning was clear. 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 He also states that the specimen cup into which he provided his urine sample was not sterile and he believes that the Enterobacter is a contaminant. He reports urinating more often and larger volumes as a result of taking tamsulosin, and wishes for it to be discontinued. Objective - Vital Signs Vital signs: Vital Signs Temp 98.0 F 11/04/24 02:00 Pulse 82 11/04/24 02:00 Resp 12 11/04/24 02:00 BP 106/62 11/04/24 02:00 Pulse Ox 94 L 11/04/24 02:00 FiO2 Intake & Output 11/03/24 11/04/24 11/04/24 18:59 06:59 18:59 Intake Total 900 500 Output Total 1100 1625 Balance -200 -1125 Intake: Intake, IV Titration 100 Amount Magnesium Sulfate-D5w Pmx 100 1 gm In Dextrose/Water 1 100ml.bag @ 100 mls/hr IVPB ONCE ONE Rx#: [id number] Oral 900 400 Output: Urine 700 1625 Stool 400 Other: Voiding Method Toilet Toilet Urinal Urinal # Voids 1 - Constitutional General appearance: Present: average body habitus, cooperative, no acute distress - Psychiatric Psychiatric: Present: A&O x's 3 - Labs CBC & Chem 7: 11/04/24 05:07 11/03/24 05:10 Labs: Abnormal Lab Results - Last 24 Hours (Table) 11/03/24 11/03/24 11/03/24 Range/Units 05:10 05:10 05:10 RBC 2.38 L (4.40-5.60) X 10*6/uL Hgb 8.0 L (13.0-17.0) g/dL Hct 25.4 L (39.6-50.0) % MCV 106.7 H (80.0-97.0) FL MCH 33.6 H (27.0-32.0) pg MCHC 31.5 L (32.0-37.0) g/dL Immature Gran # 0.10 H (0.00-0.04) X 10*3/uL BUN 60.1 H (9.0-27.0) mg/dL Creatinine 4.2 H (0.6-1.5) mg/dL Est GFR (CKD-EPI) 14 L (>=60) Calcium 8.2 L (8.7-10.3) mg/dL Transferrin 166.0 L (204.0-354.0) mg/dL Ferritin (22.0-322.0) ng/mL Folate (4.40-31.00) ng/mL 11/03/24 11/03/24 Range/Units 05:10 05:10 RBC (4.40-5.60) X 10*6/uL Hgb (13.0-17.0) g/dL Hct (39.6-50.0) % MCV (80.0-97.0) FL MCH (27.0-32.0) pg MCHC (32.0-37.0) g/dL Immature Gran # (0.00-0.04) X 10*3/uL BUN (9.0-27.0) mg/dL Creatinine (0.6-1.5) mg/dL Est GFR (CKD-EPI) (>=60) Calcium (8.7-10.3) mg/dL Transferrin (204.0-354.0) mg/dL Ferritin 793.0 H (22.0-322.0) ng/mL Folate 4.30 L (4.40-31.00) ng/mL Assessment and Plan Assessment: The WBC count has normalized, and the serum creatinine level has decreased to 4.2 yesterday. (1) UTI (urinary tract infection) Current Visit: Yes Status: Acute Code(s): N39.0 - URINARY TRACT INFECTION, SITE NOT SPECIFIED SNOMED Code(s): 43509053 Plan: - Continue Cefepime. - Tamsulosin discontinued.
--- NOTE | 2024-11-04 11:50 | P.PN ---
Subjective Patient is seen for follow-up for acute kidney injury. Maintained on IV fluids Serum creatinine decreased to 4.2 yesterday No urine retention noted. Urine output not accurately charted.. Vancomycin level 20.2 from 10/29/2024. Objective - Vital Signs Vital signs: Vital Signs Temp 98.1 F 11/04/24 07:13 Pulse 82 11/04/24 07:13 Resp 15 11/04/24 07:13 BP 132/64 11/04/24 07:13 Pulse Ox 93 L 11/04/24 07:13 FiO2 Intake & Output 11/03/24 11/04/24 11/04/24 18:59 06:59 18:59 Intake Total 900 500 Output Total 1100 1625 Balance -200 -1125 Intake: Intake, IV Titration 100 Amount Magnesium Sulfate-D5w Pmx 100 1 gm In Dextrose/Water 1 100ml.bag @ 100 mls/hr IVPB ONCE ONE Rx#: [id number] Oral 900 400 Output: Urine 700 1625 Stool 400 Other: Voiding Method Toilet Toilet Toilet Urinal Urinal Urinal Diaper # Voids 1 - Exam Patient is sleeping. He is comfortable no acute distress. Examination of the heart S1 and S2 Examination of the lungs bilateral breath sounds are heard Abdomen is soft nontender. Ileostomy noted. 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 - Labs CBC & Chem 7: 11/04/24 05:07 11/03/24 05:10 Labs: Abnormal Lab Results - Last 24 Hours (Table) 11/03/24 11/03/24 11/03/24 Range/Units 05:10 05:10 05:10 RBC (4.40-5.60) X 10*6/uL Hgb (13.0-17.0) g/dL Hct (39.6-50.0) % MCV (80.0-97.0) FL MCH (27.0-32.0) pg MCHC (32.0-37.0) g/dL Immature Gran # (0.00-0.04) X 10*3/uL Transferrin 166.0 L (204.0-354.0) mg/dL Ferritin 793.0 H (22.0-322.0) ng/mL Folate 4.30 L (4.40-31.00) ng/mL 11/04/24 Range/Units 05:07 RBC 2.38 L (4.40-5.60) X 10*6/uL Hgb 8.1 L (13.0-17.0) g/dL Hct 25.4 L (39.6-50.0) % MCV 106.7 H (80.0-97.0) FL MCH 34.0 H (27.0-32.0) pg MCHC 31.9 L (32.0-37.0) g/dL Immature Gran # 0.08 H (0.00-0.04) X 10*3/uL Transferrin (204.0-354.0) mg/dL Ferritin (22.0-322.0) ng/mL Folate (4.40-31.00) ng/mL Assessment and Plan Assessment: 1. Acute kidney injury ATN secondary to vancomycin toxicity, hypotension and volume depletion. UA suggestive of UTI. No evidence of hydronephrosis on CT of the abdomen currently maintained on IV fluids. 2. Chronic kidney disease stage IIIb with baseline creatinine 1.7 to 1.9 mg/dL. Previous history of use of NSAIDs and history of nephrotoxicity from previous use of ampicillin. 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 3. Nonobstructive left 5 mm calculus 4. Severe metabolic acidosis secondary to GI fluid loss from the ileostomy along with lactic acidosis 5. UTI maintain on antibiotics 6. Sepsis from UTI. Urine culture is growing Enterobacter cloacae 7. Anemia of chronic disease maintained on Aranesp being followed by hematology as well Plan: Continue with IV antibiotics Continue with IV fluids Repeat labs in a.m. Continue to avoid nephrotoxic medications Continue with oral sodium bicarb. Recommend to discontinue acetaminophen. However patient would like to continue with the Tylenol as he has been taking it for more than 10 years
[2024-11-04 12:39] LABS: African American GFR (CKD) 15 (>60 ml/min/1.73 sqM); Anion Gap 7 mmol/L; Blood Urea Nitrogen 58 mg/dL (9-20); Carbon Dioxide 25 mmol/L (22-30); Chloride 107 mmol/L (98-107); Glucose 95 mg/dL (74-99); Non-African American GFR(CKD) 13 (>60 ml/min/1.73 sqM); Potassium 5.5 mmol/L (3.5-5.1); Sodium 139 mmol/L (137-145)
--- NOTE | 2024-11-04 15:19 | P.PN ---
Subjective Progress Note Date: 11/04/24 Principal diagnosis: Reason for follow-up is cystitis, leukocytosis Patient is a 78-year-old male with a past medical history significant for colon cancer, CKD, former smoker presenting to the hospital for evaluation of generalized weakness, patient did have fever elevated white count significantly positive UA with abnormal CT suggestive of cystitis prompted this consultation. On today's evaluation that is 11/04/2024, Patient is afebrile patient is currently on room air and denies having any shortness of breath, the patient denies any chest pain or cough, the patient denies any nausea vomiting did not have any abdominal pain and no diarrhea. Patient did have a creatinine 4.01 potassium is 5.5 no CBC was done today Objective - Vital Signs Vital signs: Vital Signs Temp 98.1 F 11/04/24 07:13 Pulse 82 11/04/24 07:13 Resp 15 11/04/24 07:13 BP 132/64 11/04/24 07:13 Pulse Ox 93 L 11/04/24 07:13 FiO2 Intake & Output 11/03/24 11/04/24 11/04/24 18:59 06:59 18:59 Intake Total 900 500 Output Total 1100 1625 Balance -200 -1125 Intake: Intake, IV Titration 100 Amount Magnesium Sulfate-D5w Pmx 100 1 gm In Dextrose/Water 1 100ml.bag @ 100 mls/hr IVPB ONCE ONE Rx#: [id number] Oral 900 400 Output: Urine 700 1625 Stool 400 Other: Voiding Method Toilet Toilet Toilet Urinal Urinal Urinal Diaper # Voids 1 - Exam GENERAL DESCRIPTION: An elderly male up in the chair in no distress RESPIRATORY SYSTEM: Unlabored breathing , decreased breath sounds at bases HEART: S1 S2 regular rate and rhythm , ABDOMEN: Soft , no tenderness EXTREMITIES: No edema feet - Labs CBC & Chem 7: 11/04/24 05:07 11/04/24 12:06 Labs: Abnormal Lab Results - Last 24 Hours (Table) 11/03/24 11/03/24 11/03/24 Range/Units 05:10 05:10 05:10 RBC (4.40-5.60) X 10*6/uL Hgb (13.0-17.0) g/dL Hct (39.6-50.0) % MCV (80.0-97.0) FL MCH (27.0-32.0) pg MCHC (32.0-37.0) g/dL Immature Gran # (0.00-0.04) X 10*3/uL Potassium (3.5-5.1) mmol/L BUN (9-20) mg/dL Creatinine (0.66-1.25) mg/dL Transferrin 166.0 L (204.0-354.0) mg/dL Ferritin 793.0 H (22.0-322.0) ng/mL Folate 4.30 L (4.40-31.00) ng/mL 11/04/24 11/04/24 Range/Units 05:07 12:06 RBC 2.38 L (4.40-5.60) X 10*6/uL Hgb 8.1 L (13.0-17.0) g/dL Hct 25.4 L (39.6-50.0) % MCV 106.7 H (80.0-97.0) FL MCH 34.0 H (27.0-32.0) pg MCHC 31.9 L (32.0-37.0) g/dL Immature Gran # 0.08 H (0.00-0.04) X 10*3/uL Potassium 5.5 H (3.5-5.1) mmol/L BUN 58 H (9-20) mg/dL Creatinine 4.01 H (0.66-1.25) mg/dL Transferrin (204.0-354.0) mg/dL Ferritin (22.0-322.0) ng/mL Folate (4.40-31.00) ng/mL Assessment and Plan (1) Sepsis Current Visit: Yes Status: Acute Code(s): A41.9 - SEPSIS, UNSPECIFIED ORGANISM SNOMED Code(s): 63472058 (2) UTI (urinary tract infection) Current Visit: Yes Status: Acute Code(s): N39.0 - URINARY TRACT INFECTION, SITE NOT SPECIFIED SNOMED Code(s): 68123161 Plan: 1patient presented to hospital with sepsis in this patient who did have a fever tachycardia elevated white count source is likely UTI in this patient who did have evidence of cystitis on the CT significantly positive UA likely from enteric gram-negative pathogen less likely gram-positive. 2patient blood culture so far urine is growing Enterobacter that is resistant to Rocephin 3-patient mention history of recurrent prostatitis and his research mentioned likely infecting organism is Actinotignum schaalii however it has never been growing in the cultures 4patient currently being treated with cefepime and has been refusing any IV or oral antibiotic on discharge mention that antibiotic has done his job Dictation was produced using [employer] dictation software. please excuse any gra mmatical, word or spelling errors. Time with Patient: Less than 30
[2024-11-04] MEDS: SODIUM ZIRCONIUM CYCLOSILICATE 10 GM PACKET PO ONE (15:55)
--- NOTE | 2024-11-04 21:03 | P.PN ---
Subjective Progress Note Date: 11/04/24 Date of service for this note is 10/30/2024, patient seen and examined by me at bedside This is a pleasant 78 years old male with past medical history of multiple medical problems as below. 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 No headache dizziness weakness or numbness in 1 limb. He has chronically loose bowel movement in his ileostomy. Yesterday he vomited twice He denies smoking alcohol or illicit drugs Vitals reviewed, patient was tachycardic, tachypneic, he developed fever of 101 this morning. He has leukocytosis 26,000, hemoglobin 9.8, creatinine 2.6 and 2.7. Bilirubin 1.9. Carbon dioxide is 11 Lactic acid elevated at 1 4 came down to 1.3 CT of the abdomen pelvis showing cystitis with fat stranding and enlarged prostate correlate for PSA. Patient informed of the need to follow-up with urologist Right abdominal ostomy with no evidence of obstruction Chest x-ray is negative Blood cultures pending Patient received cefepime x 1 dose and IV vancomycin 10/29/2024 He still patient seen and examined by me at bedside Weak ankle has urinary symptoms of dysuria and suprapubic pain and tenderness He feels generally weak. He says he is peeing a lot Right lower quadrant ileostomy bag is working. His tachycardia and tachypnea improving, his fever improving as well His lactic acid improved down to 1.3 CT of the abdomen pelvis was reviewed showing cystitis and a large prostate Blood cultures pending Urine cultures pending Patient currently covered with ceftriaxone. IV vancomycin was discontinued. Infectious disease team following closely and adjust antibiotic accordingly Nephrology team also following closely Will consult urology team 10/30/2024 Patient still have urinary symptoms, he still complaining from severe dysuria and suprapubic pain and tenderness, suprapubic symptoms are actually less severe than yesterday I offered him to give him more treatment for his pain with urination with oral pills he declines. His WBC back to normal today 10.2, hemoglobin 9.4 Creatinine is elevated 4.9 Carbon dioxide is improved 25 Antibiotics were switched from ceftriaxone to cefepime IV fluid was switched from sodium bicarb to Ringer lactate Flomax added by urology service Plan of care discussed with the patient and all questions answered to his satisfaction 10/31/2024 Patient is seen in follow-up today with multiple consultations following. 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 Patient reports continued urinary symptoms including pain and tenderness with urination. Urine culture finalized showing Enterobacter cloqae with infectious disease following was maintained on ceftriaxone although resistant and has transition to cefepime. Urology also evaluating the patient with no plans of immediate surgical intervention recommending to continue with antibiotic therapy. Nephrology following as well as kidney functions continue to worsen. Patient reports he feels this is likely due to receiving vancomycin for 2 days while in the ER. Patient does have history of chronic kidney disease with creatinine 2-3 range. Patient is afebrile and will follow-up on repeat labs including CBC as well as kidney functions. Replace electrolytes per protocol. 11/01/2024 Patient is seen in follow-up today with multiple consultations following including urology and infectious disease. Patient is continued on cefepime as cultures finalized showing Enterobacter. Kidney functions remain elevated although slightly improved at 4.9 creatinine today. Patient reports having intermittent pain and decreased urine output but noted to have slight improvement in the symptoms today. Urology recommending IV antibiotic therapy on discharge and no plans for cystoscopy repeat at this time. Patient has had 2 previous cystoscopy's within the last year. Patient is afebrile white count is normal and will discuss further with infectious disease and urology regarding discharge planning. 11/02/2024 Patient is seen in follow-up today with nephrology and infectious disease following. Urology has evaluated the patient recommending IV antibiotic therapy and outpatient follow-up. Patient is continued on cefepime and will continue for now. Discussed with infectious disease and will continue IV antibiotic therapy over the weekend and monitor kidney functions closely as creatinine is improving. Patient is voiding and denies significant pain with urination. Patient does have some lower extremity swelling and recommend Bal wraps or compression stockings and patient reports they will improve on their own. Encouraged increase activity and recommend walking more frequently. 11/03/2024 Patient is evaluated today in follow up on the medical floor. His labs are currently pending from today still. He has been urinating without difficultly and reports he has been refusing his flomax due to increased urination. 2850 mls of urine output in the last 24 hours. Patient remains on IV cefepime for the enterobacter UTI. 11/04/2024 Patient evaluated today sitting up at the edge of the bed. He reports adequate urine output having no difficulties with urination. He has been refusing the flomax and pepcid. He has been started on folic acid supplementation and agreeable to this. Started on darbapoietin by nephrology. Pending hematology consultation. Patient has concerns that the drop in hemoglobin could be related to his ileostomy and stool was checked for occult blood and found to be negat vicky. His stool in the ileostomy bag is liquid and green, nonbloody. Hemoglobin today is 8.1. Folate level 4.30 and vitamin b12 level 841 WNL. He is not iron deficient. Potassium level today 5.5, BUN 58, creatinine 4.01. Review of systems: Constitutional: No reports of fatigue, fever, or chills Cardiovascular: No reports of chest pain or palpitations Respiratory: No reports of shortness of breath or cough GI: No reports of nausea, vomiting, or diarrhea : reports of continued dysuria, frequency, pain with urination Neurovascular: reports of some generalized weakness, reports some very minimal lower extremity swelling All medications have been reviewed Physical exam: GENERAL: The patient is alert and oriented x 2-3, not in any acute distress. Well developed, well nourished. Generally weak HEENT: Pupils are round and equally reacting to light. EOMI. No scleral icterus. No conjunctival pallor. Normocephalic, atraumatic. No pharyngeal erythema. No thyromegaly. CARDIOVASCULAR: S1 and S2 present. No murmurs, rubs, or gallops. PULMONARY: Chest is clear to auscultation, no wheezing , no crackles. ABDOMEN: Soft, suprapubic tenderness, nondistended, normoactive bowel sounds. N o palpable organomegaly. RLQ ileostomy MUSCULOSKELETAL: No joint swelling or deformity. EXTREMITIES: No cyanosis, clubbing, faint lower extremity edema noted, non- pitting NEUROLOGICAL: Gross neurological examination did not reveal any focal deficits. SKIN: No rashes. no petechiae. Assessment: Severe sepsis with leukocytosis and fever and tachypnea, present on admission secondary to urinary tract infection with cystitis, improving Acute UTI and cystitis secondary to Enterococcus cloacae, blood cultures are negative Generalized weakness secondary to above Acute kidney injury, likely acute tubular necrosis with chronic kidney disease history, trending down Hyperkalemia from the [facility] History of ileal tumor, noninvasive status post ileostomy Chronic anemia; macrocytic with folate deficiency Enlarged prostate GI prophylaxis DVT prophylaxis Full code Plan: Infectious disease following his urine culture showing Enterobacter with resistance to ceftriaxone and has been transition to cefepime and will continue with IV antibiotics over the weekend with close monitoring of kidney functions as they are improving and will continue gentle hydration per nephrology with lactated Ringer's. Repeat labs in the a.m. Urology has evaluated the patient with no plans of immediate surgical int ervention at this time. Urology recommends continued IV antibiotic therapy and outpatient follow-up. Patient has had previous cystoscopies x 2 within the last year Home medications reviewed and resumed as appropriate Continue Flomax although patient reports he has been refusing this medication. Encouraged increase activity as tolerated. Patient is having some lower extremity swelling very minimal and recommend Bal wraps or compression stockings and patient is refusing reporting they will improve on their own. Encourage patient to elevate lower extremities while at rest although patient sits at the side of the bed most of the day with legs dependent. Peripheral edema is improved. Lokelma x 1 ordered Start folic acid supplementation, and patient requested hematology consultation. Has been started on aranesp for the anemia by nephrology. Social work following for discharge planning if patient will require IV antibiotics and possible home care outpatient Possible discharge planning on Tuesday if kidney functions have improved The impression and plan of care has been dictated by Funmilayo Tabor, Nurse Practitioner as directed. Dr. Monet MD I have performed a history and examination and MDM of this patient, discussed the same with the dictator, and agree with the dictator's assessment and plan as written ,documented as a scribe. Based on total visit time, I have performed more than 50% of the visit. Objective - Vital Signs Vital signs: Vital Signs Temp 97.7 F 11/04/24 20:00 Pulse 62 11/04/24 20:00 Resp 14 11/04/24 20:00 BP 149/71 11/04/24 20:00 Pulse Ox 99 11/04/24 20:00 FiO2 Intake & Output 11/04/24 11/04/24 11/05/24 06:59 18:59 06:59 Intake Total 500 Output Total 1625 375 Balance -1125 -375 Intake: Intake, IV Titration 100 Amount Magnesium Sulfate-D5w Pmx 100 1 gm In Dextrose/Water 1 100ml.bag @ 100 mls/hr IVPB ONCE ONE Rx#: [id number] Oral 400 Output: Urine 1625 375 Other: Voiding Method Toilet Toilet Urinal Urinal Diaper # Voids 1 - Labs CBC & Chem 7: 11/04/24 05:07 11/04/24 12:06 Labs: Abnormal Lab Results - Last 24 Hours (Table) 11/03/24 11/04/24 11/04/24 Range/Units 05:10 05:07 12:06 RBC 2.38 L (4.40-5.60) X 10*6/uL Hgb 8.1 L (13.0-17.0) g/dL Hct 25.4 L (39.6-50.0) % MCV 106.7 H (80.0-97.0) FL MCH 34.0 H (27.0-32.0) pg MCHC 31.9 L (32.0-37.0) g/dL Immature Gran # 0.08 H (0.00-0.04) X 10*3/uL Potassium 5.5 H (3.5-5.1) mmol/L BUN 58 H (9-20) mg/dL Creatinine 4.01 H (0.66-1.25) mg/dL Ferritin 793.0 H (22.0-322.0) ng/mL Assessment and Plan Time with Patient: Greater than 30
--- NOTE | 2024-11-04 23:39 | P.CONS ---
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 He was then found to have a T1 low-grade renal cell carcinoma treated with cryoablation around 2017. 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 Surgery was complicated by breakdown of the anastomosis and peritonitis, ultimately requiring ileostomy placement. The patient did have CKD prior to his surgery, but states that his hemoglobin was normal or close to normal. Labs available in the EMR show hemoglobin of 12.8, and 724. He states after his peritonitis and ileostomy, hemoglobin dropped into the 10 range. He states that he suspects that he had a low-grade bleed, but did not have any GI workup with his surgeons for the same. The patient was admitted because of suprapubic pain, because of infectious cystitis, and SIRS. During this admission hemoglobin was initially found to be in the 2+ range, with progressive increase into the 5+ range. Over the last 2 days, hemoglobin has started to decrease into the 4 range. The patient's hemoglobin was in the high 9 range at the time of admission, and declined into the low 8 range, where it has been stable over the last couple of days. Consult was therefore placed for further evaluation and recommendations. The patient reports that his ostomy is functioning well, but feels that the output is quite high, and it is causing him to be dehydrated. He has not noted any obvious bleeding or melena in the ostomy bag. He has been having recurrent episodes of prostatitis. No major bleeding in the urine noted. Labs done during this admission showed no evidence of iron deficiency, with ferritin greater than 700. B12 was normal, with folate minimally low at 4.3ng/ml CXR was negative. CT AP revealed prostatomegaly, and cystitis Review of Systems Constitutional: Reports fatigue, Reports fever, Reports weakness Eyes: denies blurred vision, denies pain Ears: deny: decreased hearing, ear discharge, earache, tinnitus Ears, nose, mouth and throat: Denies headache, Denies sore throat Cardiovascular: Denies chest pain, Denies shortness of breath Respiratory: Denies cough Gastrointestinal: Reports as per HPI Genitourinary: Reports as per HPI, Reports dysuria, Reports urinary hesitancy Musculoskeletal: Reports as per HPI (Prior history of paralysis after surgery for his sarcoma many years ago. Subsequently recovered), Reports muscle weakness Integumentary: Denies pruritus, Denies rash Neurological: Reports weakness Psychiatric: Denies anxiety, Denies depression Endocrine: Reports fatigue Hematologic/Lymphatic: Reports as per HPI Past Medical History Past Medical History: Renal Disease Additional Past Medical History / Comment(s): metabolic acidosis, renal failure, tremors History of Any Multi-Drug Resistant Organisms: None Reported Past Surgical History: Bowel Resection, Orthopedic Surgery Additional Past Surgical History / Comment(s): ileostomy Past Anesthesia/Blood Transfusion Reactions: No Reported Reaction Smoking Status: Former smoker Past Alcohol Use History: None Reported Past Drug Use History: None Reported - Past Family History Mother Additional Family Medical History / Comment(s): mom liver issues Medications and Allergies Home Medications Medication Instructions Recorded Confirmed Type Pregabalin 25 mg PO TID 10/26/24 10/27/24 History allopurinoL 300 mg PO DAILY 10/26/24 10/27/24 History diazePAM [Valium] 5 mg PO TID PRN 10/26/24 10/27/24 History Acetaminophen [Tylenol 8 Hour] 1,300 mg PO TID 10/27/24 10/27/24 History Sodium Bicarbonate Tab 1,300 mg PO TID 10/27/24 10/27/24 History cefuroxime axetiL [Ceftin] 500 mg PO BID 10/27/24 10/27/24 History Allergies Allergy/AdvReac Type Severity Reaction Status Date / Time No Known Allergies Allergy Verified 10/27/24 19:42 Physical Exam Vitals: Vital Signs Temp Pulse Resp BP Pulse Ox 11/04/24 07:13 98.1 F 82 15 132/64 93 L 11/04/24 02:00 98.0 F 82 12 106/62 94 L 11/03/24 20:00 12 11/03/24 19:57 96.6 F L 63 12 128/58 98 11/03/24 13:35 98.1 F 61 16 132/52 96 Intake and Output 11/03/24 11/04/24 11/04/24 22:59 06:59 14:59 Intake Total 1000 400 Output Total 1600 575 Balance -600 -175 Intake: Intake, IV Titration 100 Amount Magnesium Sulfate-D5w Pmx 100 1 gm In Dextrose/Water 1 100ml.bag @ 100 mls/hr IVPB ONCE ONE Rx#: [id number] Oral 900 400 Output: Urine 1200 575 Stool 400 Other: Voiding Method Toilet Toilet Urinal Urinal Diaper # Voids 1 - Constitutional General appearance: no acute distress - EENT Eyes: EOMI, PERRLA ENT: hearing grossly normal, normal oropharynx - Neck Neck: no lymphadenopathy Thyroid: bilateral: normal size - Respiratory Respiratory: bilateral: CTA - Cardiovascular Rhythm: regular Heart sounds: normal: S1, S2 - Gastrointestinal RLQ ostomy General gastrointestinal: normal bowel sounds, soft - Integumentary Integumentary: normal - Neurologic Neurologic: CNII-XII intact - Musculoskeletal Musculoskeletal: strength equal bilaterally - Psychiatric Psychiatric: A&O x's 3, appropriate affect, intact judgment & insight Results CBC & Chem 7: 11/04/24 05:07 11/04/24 12:06 Labs: Abnormal Lab Results - Last 24 Hours (Table) 11/03/24 11/03/24 11/03/24 Range/Units 05:10 05:10 05:10 RBC (4.40-5.60) X 10*6/uL Hgb (13.0-17.0) g/dL Hct (39.6-50.0) % MCV (80.0-97.0) FL MCH (27.0-32.0) pg MCHC (32.0-37.0) g/dL Immature Gran # (0.00-0.04) X 10*3/uL Transferrin 166.0 L (204.0-354.0) mg/dL Ferritin 793.0 H (22.0-322.0) ng/mL Folate 4.30 L (4.40-31.00) ng/mL 11/04/24 Range/Units 05:07 RBC 2.38 L (4.40-5.60) X 10*6/uL Hgb 8.1 L (13.0-17.0) g/dL Hct 25.4 L (39.6-50.0) % MCV 106.7 H (80.0-97.0) FL MCH 34.0 H (27.0-32.0) pg MCHC 31.9 L (32.0-37.0) g/dL Immature Gran # 0.08 H (0.00-0.04) X 10*3/uL Transferrin (204.0-354.0) mg/dL Ferritin (22.0-322.0) ng/mL Folate (4.40-31.00) ng/mL Assessment and Plan (1) Anemia Narrative/Plan: The pt had borderline Hgb till his surgery in 05/05, in the setting of CKD. Post his surgeries, Hgb has been in the 10 range, with a drop into the 8 range this admission in the setting of superimposed acute illness, and worsening renal function - This clinical picture is most consistent with underlying AOCKD with worsening due to additional superimposed conditions. The pt is quite concerned about an ongoing GI bleed since his surgery. However his iron studies definitely do not support any chronic blood loss. This was discussed with him. - He had minimally low folate levels, but had refused folate supplementation. He was advised to resume it , as he is at risk for deficiency, with high output ostomy, and current acute illness. In addition there would not be any harm anticipated from this intervention. He was agreeable to resume - Check labs for etiologies, with retic count, paraproteinemia - Assuming the abovementioned clinical impression is correct, Hgb should improve, as infection resolves and Cr improves back to baseline - If w/u for other causes is negative, and Hgb drops despite improvement in current conditions, w/u to check for bleed can then be considered. D/W pt and - Continue to monitor. Transfuse to keep Hgb > 7 Current Visit: Yes Status: Acute Code(s): D64.9 - ANEMIA, UNSPECIFIED SNOMED Code(s): 452525617 Plan: Defer to the admitting service and other consultants for management of his other medical problems
[2024-11-05 07:52] VITALS: BP 126/47; PULSE 64; RESP 14; TEMP 97.6
[2024-11-05] MEDS: SODIUM CHLORIDE 0.9% 1,000 ML IV SCH (08:11)
[2024-11-05 08:44] LABS: BUN/Creat Ratio 13.64 Ratio (12.00-20.00); Basophils # (A) 0.07 X 10*3/uL (0.00-0.10); Basophils % (A) 1.1 %; Blood Urea Nitrogen 53.2 mg/dL (9.0-27.0); Calcium 8.4 mg/dL (8.7-10.3); Carbon Dioxide 23.6 mmol/L (21.6-31.8); Chloride 110 mmol/L (96-109); Eosinophils # (A) 0.24 X 10*3/uL (0.04-0.35); Eosinophils % (A) 3.9 %; Glucose 95 mg/dL (70-110); HCT 27.5 % (39.6-50.0); HGB 8.7 g/dL (13.0-17.0); Lymphocytes # (A) 1.22 X 10*3/uL (0.90-5.00); Lymphocytes % (A) 19.7 %; MCH 33.9 pg (27.0-32.0); MCHC 31.6 g/dL (32.0-37.0); Mean Platelet Volume 10.5 FL (9.5-12.2); Monocytes # (A) 0.48 X 10*3/uL (0.20-1.00); Monocytes % (A) 7.7 %; NRBC Per 100 WBC 0 X 10*3/uL (0.00-0.01); Neutrophils # (A) 4.13 X 10*3/uL (1.80-7.70); Neutrophils % (A) 66.6 %; Platelet Count 231 X 10*3/uL (140-440); Potassium 5.4 mmol/L (3.5-5.5); RBC 2.57 X 10*6/uL (4.40-5.60); RDW 13.9 % (11.5-14.5); Sodium 144 mmol/L (135-145)
--- NOTE | 2024-11-05 09:21 | P.PN ---
Subjective Patient is seen in follow-up for acute kidney injury on chronic kidney disease. Renal function slightly better. Admits to good urine output. Wants to go home today. Vital signs are stable. General: No acute distress. HEENT: Head exam is unremarkable. LUNGS: No audible rhonchi or wheezes. HEART: Rate and Rhythm are regular. ABDOMEN: Ileostomy noted. EXTREMITITES: No edema. Objective - Vital Signs Vital signs: Vital Signs Temp 97.6 F 11/05/24 07:20 Pulse 64 11/05/24 07:20 Resp 14 11/05/24 07:20 BP 126/47 11/05/24 07:20 Pulse Ox 96 11/05/24 07:20 FiO2 Intake & Output 11/04/24 11/05/24 11/05/24 18:59 06:59 18:59 Intake Total 660 Output Total 375 1025 Balance -375 -365 Intake: Oral 660 Output: Urine 375 1025 Other: Voiding Method Toilet Toilet Urinal Urinal Diaper Diaper - Labs CBC & Chem 7: 11/05/24 05:25 11/05/24 05:25 Labs: Abnormal Lab Results - Last 24 Hours (Table) 11/04/24 11/04/24 11/05/24 Range/Units 05:07 12:06 05:25 RBC 2.38 L 2.57 L (4.40-5.60) X 10*6/uL Hgb 8.1 L 8.7 L (13.0-17.0) g/dL Hct 25.4 L 27.5 L (39.6-50.0) % MCV 106.7 H 107.0 H (80.0-97.0) FL MCH 34.0 H 33.9 H (27.0-32.0) pg MCHC 31.9 L 31.6 L (32.0-37.0) g/dL Immature Gran # 0.08 H 0.06 H (0.00-0.04) X 10*3/uL Potassium 5.5 H (3.5-5.1) mmol/L Chloride (96-109) mmol/L BUN 58 H (9-20) mg/dL Creatinine 4.01 H (0.66-1.25) mg/dL Est GFR (CKD-EPI) (>=60) Calcium (8.7-10.3) mg/dL 11/05/24 Range/Units 05:25 RBC (4.40-5.60) X 10*6/uL Hgb (13.0-17.0) g/dL Hct (39.6-50.0) % MCV (80.0-97.0) FL MCH (27.0-32.0) pg MCHC (32.0-37.0) g/dL Immature Gran # (0.00-0.04) X 10*3/uL Potassium (3.5-5.1) mmol/L Chloride 110 H (96-109) mmol/L BUN 53.2 H (9-20) mg/dL Creatinine 3.9 H (0.66-1.25) mg/dL Est GFR (CKD-EPI) 15 L (>=60) Calcium 8.4 L (8.7-10.3) mg/dL Assessment and Plan Plan: Assessment: 1. Acute kidney injury secondary to ATN secondary to severe sepsis. Creatinine peaked at 5.28 this admission and is 3.9 today. Nonoliguric. No hydronephrosis noted on CT. 2. Chronic kidney disease stage IV with recent creatinine in the range of 2.7- 3.2. 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 3. Enterobacter UTI on antibiotics. 4. Anemia of chronic kidney disease maintained on Aranesp. 5. Metabolic acidosis secondary to chronic kidney disease and GI losses maintained on oral bicarb. Stable. 6. Prostatitis. Seen by urology. Plan: Maintain IV fluids. Patient will continue with outpatient IV fluid infusion weekly. Maintain bicarb. Add Lokelma daily for 3 days. Follow-up outpatient 1 week postdischarge. Patient has an appointment set up. Repeat BMP and magnesium level 3 days postdischarge.
[2024-11-05] MEDS: SODIUM ZIRCONIUM CYCLOSILICATE 10 GM PACKET PO SCH (09:46)
[2024-11-05 10:15] LABS: Reticulocyte % 1.59 % (0.10-1.80)
[2024-11-05 10:17] LABS: Protein, Total 5.1 g/dL (6.2-8.2)
--- NOTE | 2024-11-05 14:47 | P.PN ---
Subjective Progress Note Date: 11/05/24 Principal diagnosis: Reason for follow-up is cystitis, leukocytosis Patient is a 78-year-old male with a past medical history significant for colon cancer, CKD, former smoker presenting to the hospital for evaluation of generalized weakness, patient did have fever elevated white count significantly positive UA with abnormal CT suggestive of cystitis prompted this consultation. On today's evaluation that is 11/05/2024, patient has been afebrile, patient is breathing comfortably and is currently on room air, patient denies having any significant cough no chest pain, patient denies nausea vomiting or diarrhea and no abdominal pain. Patient white count 6.20, creatinine 3.9 blood culture has been negative Objective - Vital Signs Vital signs: Vital Signs Temp 97.6 F 11/05/24 07:20 Pulse 64 11/05/24 07:20 Resp 14 11/05/24 07:20 BP 126/47 11/05/24 07:20 Pulse Ox 96 11/05/24 07:20 FiO2 Intake & Output 11/04/24 11/05/24 11/05/24 18:59 06:59 18:59 Intake Total 660 Output Total 375 1025 Balance -375 -365 Intake: Oral 660 Output: Urine 375 1025 Other: Voiding Method Toilet Toilet Urinal Urinal Diaper Diaper - Exam GENERAL DESCRIPTION: An elderly male up in the chair in no distress RESPIRATORY SYSTEM: Unlabored breathing , decreased breath sounds at bases HEART: S1 S2 regular rate and rhythm , ABDOMEN: Soft , no tenderness EXTREMITIES: No edema feet - Labs CBC & Chem 7: 11/05/24 05:25 11/05/24 05:25 Labs: Abnormal Lab Results - Last 24 Hours (Table) 11/04/24 11/04/24 Range/Units 05:07 12:06 RBC 2.38 L (4.40-5.60) X 10*6/uL Hgb 8.1 L (13.0-17.0) g/dL Hct 25.4 L (39.6-50.0) % MCV 106.7 H (80.0-97.0) FL MCH 34.0 H (27.0-32.0) pg MCHC 31.9 L (32.0-37.0) g/dL Immature Gran # 0.08 H (0.00-0.04) X 10*3/uL Potassium 5.5 H (3.5-5.1) mmol/L BUN 58 H (9-20) mg/dL Creatinine 4.01 H (0.66-1.25) mg/dL Assessment and Plan (1) Sepsis Status: Acute Code(s): A41.9 - SEPSIS, UNSPECIFIED ORGANISM SNOMED Code(s): 18990840 (2) UTI (urinary tract infection) Status: Acute Code(s): N39.0 - URINARY TRACT INFECTION, SITE NOT SPECIFIED SNOMED Code(s): 74374292 Plan: 1patient presented to hospital with sepsis in this patient who did have a fever tachycardia elevated white count source is likely UTI in this patient who did have evidence of cystitis on the CT significantly positive UA likely from enteri c gram-negative pathogen less likely gram-positive. 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 please excuse any grammatical, word or spelling errors. Time with Patient: Less than 30
--- NOTE | 2024-11-05 17:06 | P.PN ---
Subjective Progress Note Date: 11/05/24 No acute overnight event, urine culture growing Enterobacter. Denies any dysuria or gross hematuria Objective - Vital Signs Vital signs: Vital Signs Temp 97.6 F 11/05/24 07:20 Pulse 64 11/05/24 07:20 Resp 14 11/05/24 07:20 BP 126/47 11/05/24 07:20 Pulse Ox 96 11/05/24 07:20 FiO2 Intake & Output 11/04/24 11/05/24 11/05/24 18:59 06:59 18:59 Intake Total 660 480 Output Total 375 1025 Balance -375 -365 480 Intake: Oral 660 480 Output: Urine 375 1025 Other: Voiding Method Toilet Toilet Toilet Urinal Urinal Urinal Diaper Diaper - Labs CBC & Chem 7: 11/05/24 05:25 11/05/24 05:25 Labs: Abnormal Lab Results - Last 24 Hours (Table) 11/05/24 11/05/24 11/05/24 Range/Units 05:25 05:25 05:25 RBC 2.57 L (4.40-5.60) X 10*6/uL Hgb 8.7 L (13.0-17.0) g/dL Hct 27.5 L (39.6-50.0) % MCV 107.0 H (80.0-97.0) FL MCH 33.9 H (27.0-32.0) pg MCHC 31.6 L (32.0-37.0) g/dL Immature Gran # 0.06 H (0.00-0.04) X 10*3/uL Chloride 110 H (96-109) mmol/L BUN 53.2 H (9.0-27.0) mg/dL Creatinine 3.9 H (0.6-1.5) mg/dL Est GFR (CKD-EPI) 15 L (>=60) Calcium 8.4 L (8.7-10.3) mg/dL Total Protein (PEP) 5.1 L (6.2-8.2) g/dL Assessment and Plan Assessment: 78-year-old male with history of recurrent prostatitis. Admitted to the hospital with an Enterobacter UTI. His symptoms are back to his baseline. Patient does have some storage symptoms at baseline secondary to his previous spinal cord surgery. From urology standpoint he is okay for discharge and outpa tient follow-up
[2024-11-05 18:20] LABS: Free Kappa Lt Chain Qnt, Serum 3.92 mg/dL (0.33-1.94); Free Lambda Lt Chain Qnt, Seru 2.53 mg/dL (0.57-2.63)
--- NOTE | 2024-11-05 18:20 | P.PN ---
Subjective Progress Note Date: 11/05/24 Pt stable, reporting he would like to go home today. Counts stable. Hgb 8.7 from 8.1 Objective - Vital Signs Vital signs: Vital Signs Temp 97.6 F 11/05/24 07:20 Pulse 64 11/05/24 07:20 Resp 14 11/05/24 07:20 BP 126/47 11/05/24 07:20 Pulse Ox 96 11/05/24 07:20 FiO2 Intake & Output 11/04/24 11/05/24 11/05/24 18:59 06:59 18:59 Intake Total 660 480 Output Total 375 1025 Balance -375 -365 480 Intake: Oral 660 480 Output: Urine 375 1025 Other: Voiding Method Toilet Toilet Toilet Urinal Urinal Urinal Diaper Diaper - Constitutional General appearance: Present: average body habitus, no acute distress - EENT Eyes: Present: anicteric sclerae, EOMI ENT: Present: hearing grossly normal - Respiratory Details: breathing is even and unlabored - Cardiovascular Details: skin warm and dry - Integumentary Integumentary: Absent: cyanotic, jaundiced - Neurologic Neurologic: Present: CNII-XII intact - Psychiatric Psychiatric: Present: A&O x's 3 - Labs CBC & Chem 7: 11/05/24 05:25 11/05/24 05:25 Labs: Abnormal Lab Results - Last 24 Hours (Table) 11/05/24 11/05/24 11/05/24 Range/Units 05:25 05:25 05:25 RBC 2.57 L (4.40-5.60) X 10*6/uL Hgb 8.7 L (13.0-17.0) g/dL Hct 27.5 L (39.6-50.0) % MCV 107.0 H (80.0-97.0) FL MCH 33.9 H (27.0-32.0) pg MCHC 31.6 L (32.0-37.0) g/dL Immature Gran # 0.06 H (0.00-0.04) X 10*3/uL Chloride 110 H (96-109) mmol/L BUN 53.2 H (9.0-27.0) mg/dL Creatinine 3.9 H (0.6-1.5) mg/dL Est GFR (CKD-EPI) 15 L (>=60) Calcium 8.4 L (8.7-10.3) mg/dL Total Protein (PEP) 5.1 L (6.2-8.2) g/dL Assessment and Plan (1) Anemia Status: Acute Priority: Medium Code(s): D64.9 - ANEMIA, UNSPECIFIED SNOMED Code(s): 674594364 Plan: Anemia: The pt had borderline Hgb till his surgery in 05/05, in the setting of CKD. Post his surgeries, Hgb has been in the 10 range, with a drop into the 8 range this admission in the setting of superimposed acute illness, and worsening renal fun ction - This clinical picture is most consistent with underlying AOCKD with worsening due to additional superimposed conditions. The pt is quite concerned about an ongoing GI bleed since his surgery. However his iron studies definitely do not support any chronic blood loss. This was discussed with him. - He had minimally low folate levels, but had refused folate supplementation. He was advised to resume it , as he is at risk for deficiency, with high output ostomy, and current acute illness. In addition there would not be any harm anticipated from this intervention. He was agreeable to resume - Check labs for etiologies, with retic count, paraproteinemia. Retic count WNL. TSH normal at 3.21. Paraproteinemia labs pending - Assuming the abovementioned clinical impression is correct, Hgb should improve, as infection resolves and Cr improves back to baseline - If w/u for other causes is negative, and Hgb drops despite improvement in current conditions, w/u to check for bleed can then be considered. D/W pt and - Continue to monitor. Transfuse to keep Hgb > 7 Plan: Defer to the admitting service and other consultants for management of his other medical problems attests: I have seen and examined pt, performed H&P, developed impression and plan of care. Discussed with dictator. Agree with documentation, dictated as a scribe.
[2024-11-08 07:20] LABS: Albumin 2.75 g/dL (3.80-4.90); Gamma Globulin 0.55 g/dL (0.70-1.50)
== END 2024-11-05 14:34 | disposition home or self-care (01) | DRG 871 ==
LOC: EC 14:04 → 5NMEDONC 17:44
PROVIDERS: ADMIT Internal Medicine; ATTEND Internal Medicine
DX: A41.81 Sepsis due to Enterococcus (principal); N17.0 Acute kidney failure with tubular necrosis; E87.21 Acute metabolic acidosis; Z16.19 Resistance to other specified beta lactam antibiotics; D63.1 Anemia in chronic kidney disease; E87.5 Hyperkalemia; N18.32 Chronic kidney disease, stage 3b; D53.9 Nutritional anemia, unspecified; R65.20 Severe sepsis without septic shock; Z93.2 Ileostomy status; B95.2 Enterococcus as the cause of diseases classified elsewhere; N30.91 Cystitis, unspecified with hematuria; E86.0 Dehydration; F41.9 Anxiety disorder, unspecified; B96.89 Other specified bacterial agents as the cause of diseases classified elsewhere; N40.0 Benign prostatic hyperplasia without lower urinary tract symptoms; M10.9 Gout, unspecified; G62.9 Polyneuropathy, unspecified; N14.0 Analgesic nephropathy; T36.8X5A Adverse effect of other systemic antibiotics, initial encounter; N20.0 Calculus of kidney; E53.8 Deficiency of other specified B group vitamins; Z85.038 Personal history of other malignant neoplasm of large intestine; Z85.528 Personal history of other malignant neoplasm of kidney; Z87.891 Personal history of nicotine dependence; Z79.899 Other long term (current) drug therapy; Z87.438 Personal history of other diseases of male genital organs; Z87.440 Personal history of urinary (tract) infections; Z90.49 Acquired absence of other specified parts of digestive tract
CPT/HCPCS: 36410; 36415; 71046; 74176; 76937; 80048; 80053; 80202; 81001; 82272; 82607; 82728; 82746; 83540; 83550; 83605; 83735; 83883; 83921; 84145; 84165; 84443; 85025; 85045; 85610; 85730; 86334; 87040; 87077; 87086; 87186; 87636; 93005; 96361; 96365; 96366; 96367; 96368; 99291

== ENCOUNTER 2024-11-13 17:33 | Inpatient (IN) | payer MEDICARE ==
[2024-11-13] MEDS: INSULIN REGULAR 100 UNIT/ML VIAL (IV) IV ONE (18:27)
[2024-11-13] MEDS: SODIUM CHLORIDE 0.9% 1,000 ML IV STA ×2 (18:27→18:53)
[2024-11-13] MEDS: DEXTROSE 50% SYRINGE 50 ML IVP ONE (18:27)
[2024-11-13] MEDS: SODIUM BICARB 8.4% 50 ML SYR (1 MEQ/ML) IV ONE (18:29)
[2024-11-13] MEDS: SODIUM ZIRCONIUM CYCLOSILICATE 10 GM PACKET PO ONE (18:31)
[2024-11-13] MEDS: CALCIUM GLUCONATE IN NACL 1 GM in SALINE 1 100ML.BAG IVPB ONE (18:33)
[2024-11-13 18:35] LABS: INR 0.9 (<1.2); Prothrombin Time 10.3 sec (10.0-12.5)
[2024-11-13 18:36] LABS: Partial Thromboplastin Time 23.6 sec (22.0-30.0)
[2024-11-13 18:39] LABS: ALT 34 U/L (4-49); AST 24 U/L (17-59); African American GFR (CKD) 17 (>60 ml/min/1.73 sqM); Albumin 4.3 g/dL (3.5-5.0); Alkaline Phosphatase 81 U/L (38-126); Amylase 85 U/L (30-110); Anion Gap 15 mmol/L; Basophils % (A) 1 %; Blood Urea Nitrogen 72 mg/dL (9-20); Calcium 8.9 mg/dL (8.4-10.2); Carbon Dioxide 10 mmol/L (22-30); Chloride 113 mmol/L (98-107); Eosinophils # (A) 0.1 k/uL (0-0.7); Eosinophils % (A) 2 %; Glucose 95 mg/dL (74-99); HCT 34.2 % (39.0-53.0); HGB 10.5 gm/dL (13.0-17.5); Hypochromasia Moderate; Lipase 247 U/L (23-300); Lymphocytes # (A) 1.1 k/uL (1.0-4.8); Lymphocytes % (A) 24 %; MCH 33.6 pg (25.0-35.0); MCHC 30.6 g/dL (31.0-37.0); Macrocytosis Marked; Mean Platelet Volume 8.5; Monocytes # (A) 0.3 k/uL (0-1.0); Monocytes % (A) 5 %; Neutrophils # (A) 3.1 k/uL (1.3-7.7); Neutrophils % (A) 65 %; Non-African American GFR(CKD) 15 (>60 ml/min/1.73 sqM); Platelet Count 277 k/uL (150-450); RBC 3.11 m/uL (4.30-5.90); RDW 15.2 % (11.5-15.5); Sodium 138 mmol/L (137-145); Total Bilirubin 0.4 mg/dL (0.2-1.3); Total Protein 6.9 g/dL (6.3-8.2); WBC 4.7 k/uL (3.8-10.6)
[2024-11-13 18:43] LABS: Potassium 6.9 mmol/L (3.5-5.1)
[2024-11-13] MEDS: ALBUTEROL NEB (CONC) 2.5 MG/0.5 ML INHALATION ONE (18:53)
[2024-11-13 19:11] LABS: Influenza A Detected (Not Detectd); Influenza B Not Detected (Not Detectd); RSV Not Detected (Not Detectd)
--- NOTE | 2024-11-13 19:11 | XR ---
EXAMINATION TYPE: XR chest 2V DATE OF EXAM: 11/13/2024 6:53 PM COMPARISON: Chest radiographs from CLINICAL INDICATION: Male, 78 years old with history of cough; TECHNIQUE: XR chest 2V Frontal and lateral views of the chest. FINDINGS: Lungs/Pleura: There is no evidence of pleural effusion, focal consolidation, or pneumothorax. Pulmonary vascularity: Unremarkable. Heart/mediastinum: Cardiomediastinal silhouette is unremarkable. Musculoskeletal: Degenerative changes of the shoulder joints. IMPRESSION: No acute cardiopulmonary disease/process. [facility], , 11/13/2024 7:08 PM
[2024-11-13] MEDS ORDERED: ONDANSETRON 4 MG/2 ML VIAL IVP PRN (19:58)
[2024-11-13] MEDS ORDERED: ACETAMINOPHEN TAB 325 MG TAB PO PRN (19:58)
[2024-11-13] MEDS ORDERED: NALOXONE 0.4 MG/ML 1 ML VIAL IV PRN (19:58)
[2024-11-13] MEDS ORDERED: diazePAM 5 MG TAB PO PRN (20:05)
[2024-11-13] MEDS ORDERED: DARBEPOETIN ALFA 60 MCG/0.3 ML SYRINGE SQ SCH (20:15)
[2024-11-13] MEDS: DEXTROSE 5% IN WATER 1,000 ML with SODIUM BICARB (1 MEQ/ML) 150 ML IV SCH (21:09)
[2024-11-13] MEDS: OSELTAMIVIR 30 MG CAP PO SCH (21:09)
[2024-11-13] MEDS: HEPARIN SODIUM,PORCINE 5,000 UNIT/ML 1 ML VIAL SQ SCH (21:10)
[2024-11-13] MEDS: PREGABALIN 25 MG CAP PO SCH (22:09)
[2024-11-13] MEDS: ACETAMINOPHEN TAB 500 MG TAB PO SCH (22:09)
--- NOTE | 2024-11-13 22:24 | ED ---
General Adult HPI - General Chief complaint: Recheck/Abnormal Lab/Rx Stated complaint: abn labs Time Seen by Provider: 11/13/24 17:40 Source: patient, RN notes reviewed, old records reviewed Mode of arrival: ambulatory Limitations: no limitations - History of Present Illness Initial comments: Patient is an 78-year-old male who presents emergency department for hyperkalemia. Was sent in by his record pressman, Dr. Gutierrez. Apparently patient had an elevated potassium over 6. Has a history of CKD, ileostomy. Recently admitted for UTI, worsening CKD and hyperkalemia. Was discharged home on Lokelma however it does not seem to be helping. He denies any other acute complaints at this time. Presents for further evaluation at this time. States he does think he has the flu but is improving as over the last week everyone in his house had similar complaints. States he was having a cough however it is nearly resolved at this time. Denies chest pain or shortness of breath. Denies any significant abdominal pain. No changes in ileostomy output. - Related Data Home Medications Medication Instructions Recorded Confirmed Pregabalin 25 mg PO TID 10/26/24 11/13/24 allopurinoL 300 mg PO DAILY 10/26/24 11/13/24 diazePAM [Valium] 5 mg PO TID PRN 10/26/24 11/13/24 Acetaminophen [Tylenol 8 Hour] 1,300 mg PO TID 10/27/24 11/13/24 Sodium Bicarbonate Tab 1,300 mg PO TID 10/27/24 11/13/24 Oseltamivir [Tamiflu] 30 mg PO BID 11/13/24 11/13/24 Previous Rx's Medication Instructions Recorded Darbepoetin Arias [Aranesp] 60 mcg SQ Q7D each 11/05/24 Folic Acid 1 mg PO DAILY #30 tab 11/05/24 Sodium Zirconium Cyclosilicate 10 gm PO DAILY 2 Days #2 packet 11/05/24 [Lokelma] Allergies Allergy/AdvReac Type Severity Reaction Status Date / Time No Known Allergies Allergy Verified 11/13/24 18:32 Review of Systems ROS Statement: Those systems with pertinent positive or pertinent negative responses have been documented in the HPI. Review of Systems: CONST: Denies fever EYES: Denies blurry vision ENT: Denies nasal congestion C/V: Denies Chest pain RESP: Denies shortness of breath GI: Denies abdominal pain : Denies dysuria SKIN: Denies rash. MSK: Denies joint pain. NEURO: Denies headache ROS Other: All systems not noted in ROS Statement are negative. Past Medical History Past Medical History: Renal Disease Additional Past Medical History / Comment(s): metabolic acidosis, renal failure, tremors History of Any Multi-Drug Resistant Organisms: None Reported Past Surgical History: Bowel Resection, Orthopedic Surgery Additional Past Surgical History / Comment(s): ileostomy Past Anesthesia/Blood Transfusion Reactions: No Reported Reaction Past Psychological History: No Psychological Hx Reported Smoking Status: Former smoker Past Alcohol Use History: None Reported Past Drug Use History: None Reported - Past Family History Mother Additional Family Medical History / Comment(s): mom liver issues General Exam - General Exam Comments Initial Comments: General: Appears in no acute distress. HEAD: Normal with no signs of head trauma. EYES: PERRLA, EOMI, conjunctiva normal, no discharge. ENT: Hearing grossly intact, normal oropharynx. RESPIRATORY: Clear breath sounds bilaterally. No wheezes, rales, or rhonchi. C/V: Regular rate and rhythm. S1 and S2 auscultated, no edema, peripheral pulses 2+ and intact throughout ABD: Abd is soft, nontender, nondistended. Ileostomy appears to be functioning appropriately. EXT: Normal range of motion, no obvious deformity SKIN: No rashes or lesions observed on exposed skin. NEURO: Alert and oriented x 4. No focal deficits. Limitations: no limitations Course Vital Signs 11/13/24 11/13/24 11/13/24 17:39 18:56 19:07 Temperature 97.4 F L Pulse Rate 56 L 67 58 L Respiratory 16 Rate Blood Pressure 132/54 O2 Sat by Pulse 96 Oximetry 11/13/24 21:00 Temperature 98.0 F Pulse Rate 90 Respiratory 18 Rate Blood Pressure 105/51 O2 Sat by Pulse 97 Oximetry Medical Decision Making - Medical Decision Making Was pt. sent in by a medical professional or institution (, [facility]MA, BALL WARPER TENDER, urgent care, hospital, or senior care...) When possible be specific @ -Sent by his record pressman, Dr. Mireles for evaluation of hyperkalemia. Did you speak to anyone other than the patient for history (EMS, parent, family, police, friend...)? What history was obtained from this source @ -No Did you review nursing and triage notes (agree or disagree)? Why? @ -I reviewed and agree with nursing and triage notes Were old charts reviewed (outside hosp., previous admission, EMS record, old EKG, old radiological studies, urgent care reports/EKG's, senior care records)? Report findings @ -Old charts reviewed from October 2024, including EKG which shows changed today with peaked T waves concerning for hyperkalemia. Differential Diagnosis (chest pain, altered mental status, abdominal pain women, abdominal pain men, vaginal bleeding, weakness, fever, dyspnea, syncope, headac he, dizziness, GI bleed, back pain, seizure, CVA, palpatations, mental health, musculoskeletal)? @ -Hyperkalemia, CKD, UTI, dehydration. This list is not all inclusive. EKG interpreted by me (3pts min.). @ -As above X-rays interpreted by me (1pt min.). @ -Chest x-ray reveals no obvious acute cardiopulmonary process. CT interpreted by me (1pt min.). @ -None done U/S interpreted by me (1pt. min.). @ -None done What testing was considered but not performed or refused? (CT, X-rays, U/S, labs)? Why? @ -None What meds were considered but not given or refused? Why? @ -None Did you discuss the management of the patient with other professionals (professionals i.e. , PA, BALL WARPER TENDER, lab, RT, psych nurse, social service agency director, simonizer, teacher, soil science technical officer, director of casework department)? Give summary @ -Discussed with on-call nephrology, Dr. Miller who was in agreement with management and requested patient be placed on a bicarb drip at 125 cc an hour. Requested 3 A in D5. Discussed with admitting provider, PETER Moy of [facility] who accepted the admission. Was smoking cessation discussed for >3mins.? @ -No Was critical care preformed (if so, how long)? @ -Yes, 40 minutes Were there social determinants of health that impacted care today? How? (Homelessness, low income, unemployed, alcoholism, drug addiction, t ransportation, low edu. Level, literacy, decrease access to med. care, alf, rehab)? @ -No Was there de-escalation of care discussed even if they declined (Discuss DNR or withdrawal of care, Hospice)? DNR status @ -No What co-morbidities impacted this encounter? (DM, HTN, Smoking, COPD, CAD, Cance r, CVA, ARF, Chemo, Hep., AIDS, mental health diagnosis, sleep apnea, morbid obesity)? @ -CKD Was patient admitted / discharged? Hospital course, mention meds given and route, prescriptions, significant lab abnormalities, going to OR and other pertinent info. @ -Patient presents for hyperkalemia. EKG does shows T wave peaking with concern for hyperkalemia as well as positive elevated potassium yesterday on blood work. Patient will be given hyperkalemia cocktail, including Lokelma, bicarb amp, IV fluids, insulin, D50,, albuterol. Patient will also receive calcium. He was in agreement this plan. Vitals are within acceptable limits. Chest x-ray showed no obvious acute process. Labs remarkable for a anemia of 10.5 which does appear chronic for the patient is improved from previous visit. Patient is hyperkalemic to 6.9 and acidotic. Patient has CKD and is improved from previous discharge with creatinine of 3.66. Patient is flu a positive. Urinalysis still pending.Patient has been symptomatic with influenza for a week and therefore is not a candidate for Tamiflu. Update the patient. He was resting comfortably. Nephrology consulted. We will monitor potassium. He will be admitted for hypokalemia to 3 S. He was in agreement this plan. Discussed with on-call nephrology, Dr. Miller who was in agreement with management and requested patient be placed on a bicarb drip at 125 cc an hour. Requested 3 A in D5. Discussed with admitting provider, PETER Moy of [facility] who accepted the admission. Undiagnosed new problem with uncertain prognosis? @ -No Drug Therapy requiring intensive monitoring for toxicity (Heparin, Nitro, Insulin, Cardizem)? @ -No Were any procedures done? @ -No Diagnosis/symptom? @ -Hyperkalemia in the setting of CKD, influenza A positive Acute, or Chronic, or Acute on Chronic? @ -Acute Uncomplicated (without systemic symptoms) or Complicated (systemic symptoms)? @ -Complicated Side effects of treatment? @ -No Exacerbation, Progression, or Severe Exacerbation? @ -No Poses a threat to life or bodily function? How? (Chest pain, [place], [place], pneumonia, PE, COPD, DKA, ARF, appy, cholecystitis, CVA, Diverticulitis, Homicidal, Suicidal, threat to staff... and all critical care pts) @ -Yes - Lab Data Result diagrams: 11/13/24 18:12 11/13/24 18:12 Lab Results 11/13/24 11/13/24 11/13/24 Range/Units 18:12 18:12 18:12 WBC 4.7 (3.8-10.6) k/uL RBC 3.11 L (4.30-5.90) m/uL Hgb 10.5 L (13.0-17.5) gm/dL Hct 34.2 L (39.0-53.0) % MCV 110.0 H (80.0-100.0) fL MCH 33.6 (25.0-35.0) pg MCHC 30.6 L (31.0-37.0) g/dL RDW 15.2 (11.5-15.5) % Plt Count 277 (150-450) k/uL MPV 8.5 Neutrophils % 65 % Lymphocytes % 24 % Monocytes % 5 % Eosinophils % 2 % Basophils % 1 % Neutrophils # 3.1 (1.3-7.7) k/uL Lymphocytes # 1.1 (1.0-4.8) k/uL Monocytes # 0.3 (0-1.0) k/uL Eosinophils # 0.1 (0-0.7) k/uL Basophils # 0.0 (0-0.2) k/uL Manual Slide Review Performed Hypochromasia Moderate Macrocytosis Marked A PT 10.3 (10.0-12.5) sec INR 0.9 (<1.2) APTT 23.6 (22.0-30.0) sec Sodium 138 (137-145) mmol/L Potassium 6.9 H* (3.5-5.1) mmol/L Chloride 113 H (98-107) mmol/L Carbon Dioxide 10 L (22-30) mmol/L Anion Gap 15 mmol/L BUN 72 H (9-20) mg/dL Creatinine 3.66 H (0.66-1.25) mg/dL Est GFR (CKD-EPI)AfAm 17 (>60 ml/min/1.73 sqM) Est GFR (CKD-EPI)NonAf 15 (>60 ml/min/1.73 sqM) Glucose 95 (74-99) mg/dL Plasma Lactic Acid Darshan (0.7-2.0) mmol/L Calcium 8.9 (8.4-10.2) mg/dL Total Bilirubin 0.4 (0.2-1.3) mg/dL AST 24 (17-59) U/L ALT 34 (4-49) U/L Alkaline Phosphatase 81 (38-126) U/L Total Protein 6.9 (6.3-8.2) g/dL Albumin 4.3 (3.5-5.0) g/dL Amylase 85 (30-110) U/L Lipase 247 (23-300) U/L Influenza Type A (PCR) (Not Detectd) Influenza Type B (PCR) (Not Detectd) RSV (PCR) (Not Detectd) SARS-CoV-2 (PCR) (Not Detectd) 11/13/24 11/13/24 Range/Units 18:12 18:27 WBC (3.8-10.6) k/uL RBC (4.30-5.90) m/uL Hgb (13.0-17.5) gm/dL Hct (39.0-53.0) % MCV (80.0-100.0) fL MCH (25.0-35.0) pg MCHC (31.0-37.0) g/dL RDW (11.5-15.5) % Plt Count (150-450) k/uL MPV Neutrophils % % Lymphocytes % % Monocytes % % Eosinophils % % Basophils % % Neutrophils # (1.3-7.7) k/uL Lymphocytes # (1.0-4.8) k/uL Monocytes # (0-1.0) k/uL Eosinophils # (0-0.7) k/uL Basophils # (0-0.2) k/uL Manual Slide Review Hypochromasia Macrocytosis PT (10.0-12.5) sec INR (<1.2) APTT (22.0-30.0) sec Sodium (137-145) mmol/L Potassium (3.5-5.1) mmol/L Chloride (98-107) mmol/L Carbon Dioxide (22-30) mmol/L Anion Gap mmol/L BUN (9-20) mg/dL Creatinine (0.66-1.25) mg/dL Est GFR (CKD-EPI)AfAm (>60 ml/min/1.73 sqM) Est GFR (CKD-EPI)NonAf (>60 ml/min/1.73 sqM) Glucose (74-99) mg/dL Plasma Lactic Acid Darshan 0.7 (0.7-2.0) mmol/L Calcium (8.4-10.2) mg/dL Total Bilirubin (0.2-1.3) mg/dL AST (17-59) U/L ALT (4-49) U/L Alkaline Phosphatase (38-126) U/L Total Protein (6.3-8.2) g/dL Albumin (3.5-5.0) g/dL Amylase (30-110) U/L Lipase (23-300) U/L Influenza Type A (PCR) Detected A (Not Detectd) Influenza Type B (PCR) Not Detected (Not Detectd) RSV (PCR) Not Detected (Not Detectd) SARS-CoV-2 (PCR) Not Detected (Not Detectd) - EKG Data -: EKG Interpreted by Me EKG Comments: 12-lead Electrocardiogram Interpretation Note EKG was reviewed and interpreted by myself. 12-lead ECG performed at 1808 is interpreted by me as revealing sinus bradycardia at a rate of 54 beats per minute. [place] is normal. [place] interval is 184 ms, QRS duration is 92 ms, QTc is 390 ms. Patient does have peaked T waves when compared with EKG from October 2024. Concerning for hyperkalemia.. There were no ST or T wave abnormalities to suggest myocardial ischemia or injury. R wave progression across the precord ium was satisfactory. By my interpretation this EKG is non-diagnostic for acute ischemia. Critical Care Time Critical Care Time: Yes Total Critical Care Time: 40 Disposition Clinical Impression: Hyperkalemia, CKD (chronic kidney disease), Influenza A Disposition: ADMITTED IP TO THIS HOSP Condition: Serious Time of Disposition: 19:58
[2024-11-14 01:13] LABS: Appearance,Urine Clear (Clear); Bilirubin,Urine Negative (Negative); Blood,Urine Negative (Negative); Color,Urine Colorless; Glucose,Urine (UA) Negative (Negative); Ketones,Urine Negative (Negative); Leukocyte Esterase,Urine Negative (Negative); Nitrite,Urine Negative (Negative); Protein,Urine Trace (Negative); Specific Gravity,Urine 1.015 (1.001-1.035); Urobilinogen,Urine <2.0 mg/dL (<2.0)
[2024-11-14] MEDS: allopurinoL 300 MG TAB PO SCH (08:28)
[2024-11-14 08:58] LABS: Basophils % (A) 1 %; Eosinophils # (A) 0.1 k/uL (0-0.7); Eosinophils % (A) 3 %; HCT 33.4 % (39.0-53.0); HGB 10.1 gm/dL (13.0-17.5); Hypochromasia Slight; Lymphocytes # (A) 0.9 k/uL (1.0-4.8); Lymphocytes % (A) 22 %; MCH 32.8 pg (25.0-35.0); MCHC 30.3 g/dL (31.0-37.0); MCV 108.5 fL (80.0-100.0); Macrocytosis Marked; Mean Platelet Volume 8.6; Monocytes # (A) 0.3 k/uL (0-1.0); Monocytes % (A) 7 %; Neutrophils # (A) 2.8 k/uL (1.3-7.7); Neutrophils % (A) 66 %; Platelet Count 285 k/uL (150-450); RBC 3.08 m/uL (4.30-5.90); WBC 4.2 k/uL (3.8-10.6)
[2024-11-14 09:14] LABS: ALT 29 U/L (4-49); AST 21 U/L (17-59); African American GFR (CKD) 21 (>60 ml/min/1.73 sqM); Albumin 4.1 g/dL (3.5-5.0); Alkaline Phosphatase 66 U/L (38-126); Anion Gap 11 mmol/L; Blood Urea Nitrogen 63 mg/dL (9-20); Calcium 8.9 mg/dL (8.4-10.2); Carbon Dioxide 18 mmol/L (22-30); Chloride 112 mmol/L (98-107); Glucose 77 mg/dL (74-99); Non-African American GFR(CKD) 19 (>60 ml/min/1.73 sqM); Potassium 4.9 mmol/L (3.5-5.1); Sodium 141 mmol/L (137-145); Total Bilirubin 0.5 mg/dL (0.2-1.3); Total Protein 6.3 g/dL (6.3-8.2)
--- NOTE | 2024-11-14 11:56 | P.NPCON ---
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 He is admitted to the hospital secondary to abnormal labs, increased potassium >6. 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 That surgery was complicated by breakdown of the anastomoses and peritonitis, requiring and ileostomy with possible plans for connection of the bowel and removal of the ileostomy down the road. He was recently admitted to this facility for treatment of UTI. He has underlying history of CKD stage IV with baseline creatinine 2.62.74. Following his most recent discharge 1 month ago he had been following with Dr. Rosas outpatient. UA on arrival today showed only trace protein. Potassium on arrival 6.9, currently 4.9 BUN on arrival 72, currently 63 Creatinine on arrival 3.66, currently 3.03 Past Medical History Past Medical History: Renal Disease Additional Past Medical History / Comment(s): metabolic acidosis, renal failure, tremors History of Any Multi-Drug Resistant Organisms: None Reported Past Surgical History: Bowel Resection, Orthopedic Surgery Additional Past Surgical History / Comment(s): ileostomy Past Anesthesia/Blood Transfusion Reactions: No Reported Reaction Past Psychological History: No Psychological Hx Reported Smoking Status: Former smoker Past Alcohol Use History: None Reported Past Drug Use History: None Reported - Past Family History Mother Additional Family Medical History / Comment(s): mom liver issues Medications and Allergies Home Medications Medication Instructions Recorded Confirmed Type Pregabalin 25 mg PO TID 10/26/24 11/13/24 History allopurinoL 300 mg PO DAILY 10/26/24 11/13/24 History diazePAM [Valium] 5 mg PO TID PRN 10/26/24 11/13/24 History Acetaminophen [Tylenol 8 Hour] 1,300 mg PO TID 10/27/24 11/13/24 History Sodium Bicarbonate Tab 1,300 mg PO TID 10/27/24 11/13/24 History Darbepoetin Arias [Aranesp] 60 mcg SQ Q7D each 11/05/24 11/13/24 Rx Folic Acid 1 mg PO DAILY #30 tab 11/05/24 11/13/24 Rx Sodium Zirconium Cyclosilicate 10 gm PO DAILY 2 Days #2 packet 11/05/24 11/13/24 Rx [Lokelma] Oseltamivir [Tamiflu] 30 mg PO BID 11/13/24 11/13/24 History Allergies Allergy/AdvReac Type Severity Reaction Status Date / Time No Known Allergies Allergy Verified 11/13/24 18:32 Physical Exam Vitals: Vital Signs Temp Pulse Resp BP Pulse Ox 11/14/24 06:00 62 18 107/60 98 11/14/24 04:00 98.3 F 63 18 105/51 98 11/14/24 00:00 91 18 100/60 98 11/13/24 22:00 94 18 108/51 98 11/13/24 21:00 98.0 F 90 18 105/51 97 11/13/24 19:07 58 L 11/13/24 18:56 67 11/13/24 17:39 97.4 F L 56 L 16 132/54 96 Intake and Output 11/13/24 11/14/24 11/14/24 22:59 06:59 14:59 Other: Weight 77.111 kg Patient is awake, comfortable, no acute distress. 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 Results - Lab Results Most recent lab results Calcium 8.9 mg/dL (8.4-10.2) 11/14/24 08:33 11/14/24 08:33 11/14/24 08:33 Assessment and Plan Assessment: #KONRAD secondary to ATN in the setting of CKD stage IV, baseline creatinine 2.62.7; had been maintained on NS at 75 cc/h, currently on bicarb in D5W at 125 cc/h - improving #Hyperkalemia secondary to above and metabolic acidosis - resolved #metabolic acidosis with mildly elevated anion gap on admission secondary to GI fluid loss from ileostomy and KONRAD, currently maintained on bicarb in D5W at 125 cc/h - improving #Chronic macrocytic anemia with history of folate deficiency #Anemia of CKD, hemoglobin this AM 10.1 Plan: -Was treated medically for hyperkalemia with 10 units insulin, albuterol 10 mg inhalation and dextrose 50 mL IVP, along with calcium gluconate; potassium this morning 4.9, had been 6.9 on arrival -Had been receiving NS 75 cc/h which has been discontinued; continue on sodium bicarb in D5W at 125 cc/h -Plan for outpatient IV fluid hydration 2x/week -Resume home lokelma and oral sodium bicarb on discharge -Avoid nephrotoxic agents -Discussed decreasing dose of Acetaminophen on multiple occassions -Stable for discharge from nephrology standpoint, with follow up outpatient Patient is seen and examined. Agree with resident's findings, assessment and plan.
--- NOTE | 2024-11-14 12:00 | P.HPIM ---
History of Present Illness 78-year-old male was sent in by PCP because of hyperkalemia with potassium going up to 6.4. Patient received dextrose with insulin, Lokelma after which potassium have come down to 4.9 today. Patient is not on ANTONY inhibitor or angiotensin receptor katie.. Patient does have chronic kidney disease with baseline creatinine around 3 patient has an ileostomy with significant output requiring frequent IV fluid transfusions as an outpatient. Patient is also found to have influenza although patient is already on Tamiflu and is not r equiring oxygen at this time does not have any fever. Patient does take Lokelma daily basis.. REVIEW OF SYSTEMS: All other systems are negative except those mentioned in the HPI PHYSICAL EXAMINATION: GENERAL: The patient is alert and oriented x3, not in any acute distress. Well developed, well nourished. HEENT: Pupils are round and equally reacting to light. EOMI. No scleral icterus. No conjunctival pallor. Normocephalic, atraumatic. No pharyngeal erythema. No thyromegaly. CARDIOVASCULAR: S1 and S2 present. No murmurs, rubs, or gallops. PULMONARY: Chest is clear to auscultation, no wheezing or crackles. ABDOMEN: Soft, nontender, nondistended, normoactive bowel sounds. No palpable organomegaly. Patient has an ileostomy on the right side MUSCULOSKELETAL: No joint swelling or deformity. EXTREMITIES: No cyanosis, clubbing, or pedal edema. NEUROLOGICAL: Gross neurological examination did not reveal any focal deficits. SKIN: No rashes. Assessment and plan -Hyperkalemia: Secondary to renal failure chronic kidney disease as well as acute renal failure. Improved now patient will be discharged and will continue Lokelma discussed with nephrology patient will need IV normal saline transfusion twice a week at home. Social work was consulted and is working on arranging for normal saline 1 L twice a week as recommended by nephrology and patient will need close follow-up with nephrology as well as PCP and repeat labs. Patient need to be on low potassium diet. Patient will be discharged on bicarbonate tablets -Acute renal failure on chronic kidney disease stage IV: Acute renal failure is secondary to significant fluid loss from his ileostomy -Influenza infection patient is not septic at this time not requiring any oxygen -Peripheral neuropathy for which patient is on pregabalin which will be continued . Patient will be discharged today for IV fluids can be arranged as an outpatient, so that patient can receive it at home twice a week Past Medical History Past Medical History: Renal Disease Additional Past Medical History / Comment(s): metabolic acidosis, renal failure, tremors History of Any Multi-Drug Resistant Organisms: None Reported Past Surgical History: Bowel Resection, Orthopedic Surgery Additional Past Surgical History / Comment(s): ileostomy Past Anesthesia/Blood Transfusion Reactions: No Reported Reaction Past Psychological History: No Psychological Hx Reported Smoking Status: Former smoker Past Alcohol Use History: None Reported Past Drug Use History: None Reported - Past Family History Mother Additional Family Medical History / Comment(s): mom liver issues Medications and Allergies Home Medications Medication Instructions Recorded Confirmed Type Pregabalin 25 mg PO TID 10/26/24 11/13/24 History allopurinoL 300 mg PO DAILY 10/26/24 11/13/24 History diazePAM [Valium] 5 mg PO TID PRN 10/26/24 11/13/24 History Acetaminophen [Tylenol 8 Hour] 1,300 mg PO TID 10/27/24 11/13/24 History Sodium Bicarbonate Tab 1,300 mg PO TID 10/27/24 11/13/24 History Darbepoetin Arias [Aranesp] 60 mcg SQ Q7D each 11/05/24 11/13/24 Rx Folic Acid 1 mg PO DAILY #30 tab 11/05/24 11/13/24 Rx Sodium Zirconium Cyclosilicate 10 gm PO DAILY 2 Days #2 packet 11/05/24 11/13/24 Rx [Lokelma] Oseltamivir [Tamiflu] 30 mg PO BID 11/13/24 11/13/24 History Allergies Allergy/AdvReac Type Severity Reaction Status Date / Time No Known Allergies Allergy Verified 11/13/24 18:32 Physical Exam Vitals: Vital Signs Temp Pulse Resp BP Pulse Ox 11/14/24 10:10 97.6 F 62 18 117/56 99 11/14/24 06:00 62 18 107/60 98 11/14/24 04:00 98.3 F 63 18 105/51 98 11/14/24 00:00 91 18 100/60 98 11/13/24 22:00 94 18 108/51 98 11/13/24 21:00 98.0 F 90 18 105/51 97 11/13/24 19:07 58 L 11/13/24 18:56 67 11/13/24 17:39 97.4 F L 56 L 16 132/54 96 Intake and Output 11/13/24 11/14/24 11/14/24 22:59 06:59 14:59 Other: Weight 77.111 kg Results CBC & Chem 7: 11/14/24 08:33 11/14/24 08:33 Labs: Abnormal Lab Results - Last 24 Hours (Table) 11/13/24 11/13/24 11/13/24 Range/Units 18:12 18:12 18:27 RBC 3.11 L (4.30-5.90) m/uL Hgb 10.5 L (13.0-17.5) gm/dL Hct 34.2 L (39.0-53.0) % MCV 110.0 H (80.0-100.0) fL MCHC 30.6 L (31.0-37.0) g/dL Lymphocytes # (1.0-4.8) k/uL Macrocytosis Marked A Potassium 6.9 H* (3.5-5.1) mmol/L Chloride 113 H (98-107) mmol/L Carbon Dioxide 10 L (22-30) mmol/L BUN 72 H (9-20) mg/dL Creatinine 3.66 H (0.66-1.25) mg/dL Urine Protein (Negative) Influenza Type A (PCR) Detected A (Not Detectd) 11/14/24 11/14/24 11/14/24 Range/Units 00:27 08:33 08:33 RBC 3.08 L (4.30-5.90) m/uL Hgb 10.1 L (13.0-17.5) gm/dL Hct 33.4 L (39.0-53.0) % MCV 108.5 H (80.0-100.0) fL MCHC 30.3 L (31.0-37.0) g/dL Lymphocytes # 0.9 L (1.0-4.8) k/uL Macrocytosis Marked A Potassium (3.5-5.1) mmol/L Chloride 112 H (98-107) mmol/L Carbon Dioxide 18 L (22-30) mmol/L BUN 63 H (9-20) mg/dL Creatinine 3.03 H (0.66-1.25) mg/dL Urine Protein Trace H (Negative) Influenza Type A (PCR) (Not Detectd)
--- NOTE | 2024-11-14 12:00 | P.DS ---
Providers Date of admission: 11/13/24 20:00 Attending physician: Piotr Gutiérrez Consults: 11/13/24 19:58 Consult Physician Routine Consulting Provider: Marci Miller Consult Reason/Comments: hyperkalemia, CKD Do you want consulting provider notified?: Already Contacted Primary care physician: [facility] Course: 78-year-old male was sent in by PCP because of hyperkalemia with potassium going up to 6.4. Patient received dextrose with insulin, Lokelma after which potassium have come down to 4.9 today. Patient is not on ANTONY inhibitor or angiotensin receptor katie.. Patient does have chronic kidney disease with baseline creatinine around 3 patient has an ileostomy with significant output requiring frequent IV fluid transfusions as an outpatient. Patient is also found to have influenza although patient is already on Tamiflu and is not requiring oxygen at this time does not have any fever. Patient does take Lokelma daily basis.. REVIEW OF SYSTEMS: All other systems are negative except those mentioned in the HPI PHYSICAL EXAMINATION: GENERAL: The patient is alert and oriented x3, not in any acute distress. Well developed, well nourished. HEENT: Pupils are round and equally reacting to light. EOMI. No scleral icterus. No conjunctival pallor. Normocephalic, atraumatic. No pharyngeal erythema. No thyromegaly. CARDIOVASCULAR: S1 and S2 present. No murmurs, rubs, or gallops. PULMONARY: Chest is clear to auscultation, no wheezing or crackles. ABDOMEN: Soft, nontender, nondistended, normoactive bowel sounds. No palpable organomegaly. Patient has an ileostomy on the right side MUSCULOSKELETAL: No joint swelling or deformity. EXTREMITIES: No cyanosis, clubbing, or pedal edema. NEUROLOGICAL: Gross neurological examination did not reveal any focal deficits. SKIN: No rashes. Assessment and plan -Hyperkalemia: Secondary to renal failure chronic kidney disease as well as acute renal failure. Improved now patient will be discharged and will continue Lokelma discussed with nephrology patient will need IV normal saline transfusion twice a week at home. Social work was consulted and is working on arranging for normal saline 1 L twice a week as recommended by nephrology and patient will need close follow-up with nephrology as well as PCP and repeat labs. Patient need to be on low potassium diet. Patient will be discharged on bicarbonate tablets -Acute renal failure on chronic kidney disease stage IV: Acute renal failure is secondary to significant fluid loss from his ileostomy -Influenza infection patient is not septic at this time not requiring any oxygen -Peripheral neuropathy for which patient is on pregabalin which will be continued . Patient will be discharged today for IV fluids can be arranged as an outpatient, so that patient can receive it at home twice a week Patient Condition at Discharge: Serious Plan - Discharge Summary New Discharge Prescriptions: Continue diazePAM [Valium] 5 mg PO TID PRN PRN Reason: Muscle Spasm Pregabalin 25 mg PO TID Sodium Bicarbonate Tab 1,300 mg PO TID Sodium Zirconium Cyclosilicate [Lokelma] 10 gm PO DAILY 2 Days #2 packet allopurinoL 300 mg PO DAILY Acetaminophen [Tylenol 8 Hour] 1,300 mg PO TID Darbepoetin Arias [Aranesp] 60 mcg SQ Q7D each Folic Acid 1 mg PO DAILY #30 tab Oseltamivir [Tamiflu] 30 mg PO BID Discharge Medication List Pregabalin 25 mg PO TID 10/26/24 [History] allopurinoL 300 mg PO DAILY 10/26/24 [History] diazePAM [Valium] 5 mg PO TID PRN 10/26/24 [History] Acetaminophen [Tylenol 8 Hour] 1,300 mg PO TID 10/27/24 [History] Sodium Bicarbonate Tab 1,300 mg PO TID 10/27/24 [History] Darbepoetin Arias [Aranesp] 60 mcg SQ Q7D each 11/05/24 [Rx] Folic Acid 1 mg PO DAILY #30 tab 11/05/24 [Rx] Sodium Zirconium Cyclosilicate [Lokelma] 10 gm PO DAILY 2 Days #2 packet 11/05/24 [Rx] Oseltamivir [Tamiflu] 30 mg PO BID 11/13/24 [History] Follow up Appointment(s)/Referral(s): Marci Miller MD [STAFF PHYSICIAN] - 1 Week Syeda Leahy MD [Primary Care Provider] - 3 Days Activity/Diet/Wound Care/Special Instructions: Low potassium diet Discharge Disposition: HOME SELF-CARE
[2024-11-15 10:15] LABS: African American GFR (CKD) 25 (>60 ml/min/1.73 sqM); Anion Gap 8 mmol/L; Blood Urea Nitrogen 51 mg/dL (9-20); Calcium 8.5 mg/dL (8.4-10.2); Carbon Dioxide 22 mmol/L (22-30); Chloride 111 mmol/L (98-107); Glucose 95 mg/dL (74-99); Non-African American GFR(CKD) 22 (>60 ml/min/1.73 sqM); Potassium 4.5 mmol/L (3.5-5.1); Sodium 141 mmol/L (137-145)
--- NOTE | 2024-11-15 10:23 | P.PN ---
Subjective Progress Note Date: 11/15/24 Patient seen for follow-up of hyperkalemia and CKD. Original plans were for discharge yesterday, however remains inpatient for placement of a long-term IV catheter for outpatient hydration. Labs this morning showed potassium 4.5, creatinine 2.65, BUN 51. No acute complaints today. Objective - Vital Signs Vital signs: Vital Signs Temp 98.1 F 11/15/24 08:36 Pulse 66 11/15/24 08:37 Resp 18 11/15/24 08:36 BP 133/63 11/15/24 08:36 Pulse Ox 96 11/15/24 08:36 FiO2 Intake & Output 11/14/24 11/15/24 11/15/24 18:59 06:59 18:59 Intake Total 10 10 Output Total 825 300 Balance -815 -290 Weight 80 kg Intake: IV 10 10 Invasive Line 2 10 10 Output: Urine 225 300 Stool 600 Other: Voiding Method Toilet Toilet Urinal Urinal - Exam Patient is awake, comfortable, no acute distress. Heart: S1 and S2 heard Lungs: Bilateral breath sounds are heard Abdomen: Soft and nontender Lower extremities: No edema STUNT MAN: grossly intact - Labs CBC & Chem 7: 11/14/24 08:33 11/15/24 09:45 Assessment and Plan Assessment: #KONRAD secondary to ATN in the setting of CKD stage IV, baseline creatinine 2.62.7; had been maintained on NS at 75 cc/h, currently on bicarb in D5W at 125 cc/h - improving #Hyperkalemia secondary to above and metabolic acidosis - resolved #metabolic acidosis with mildly elevated anion gap on admission secondary to GI fluid loss from ileostomy and KONRAD, currently maintained on bicarb in D5W at 125 cc/h - improving #Chronic macrocytic anemia with history of folate deficiency #Anemia of CKD, hemoglobin 11/14/24 10.1 Plan: -Was treated medically for hyperkalemia with 10 units insulin, albuterol 10 mg inhalation and dextrose 50 mL IVP, along with calcium gluconate; potassium this morning 4.5, had been 6.9 on arrival -Had been receiving NS 75 cc/h which has been discontinued; continue on sodium bicarb in D5W at 125 cc/h -Plan for outpatient IV fluid hydration 2x/week -Resume home lokelma and oral sodium bicarb on discharge -Avoid nephrotoxic agents -Discussed decreasing dose of Acetaminophen on multiple occassions -Stable for discharge from nephrology standpoint, with follow up outpatient
--- NOTE | 2024-11-15 11:37 | P.GSCN ---
History of Present Illness Consult date: 11/15/24 Reason for Consult: Need long-term catheter placement for outpatient IV infusions Requesting physician: Barbi Feng History of present illness: This is a pleasant 78-year-old gentleman who was admitted to the hospital with abnormal outpatient labs. He follows with Dr. Gutierrez from nephrology and had elevated potassium over 6 and was told to come to the emergency department. Past medical history includes chronic kidney disease and hyperkalemia, renal carcinoma, adenocarcinoma status post bowel resection with current ileostomy and recent admission for urinary tract infection. Patient has been requiring IV hyd ration and nephrology is recommending that he have IV hydration at least 2 times a week for undetermined length of time. Vascular surgery was consulted for placement of long-term catheter for IV infusion. Most recent labs WBC 4.2 hemoglobin 10.1 platelet count 285,000 sodium 141 potassium 4.5 BUN 51 creatinine 2.65. Patient is positive for influenza A. He currently denies any shortness of breath, chest pain, abdominal pain or nausea or vomiting. Has slight cough no fevers or chills. States influenza has been mild case for him. Review of Systems A 14 point review systems was completed all pertinent positives and negatives as stated in the HPI. 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 Past Anesthesia/Blood Transfusion Reactions: No Reported Reaction Past Psychological History: No Psychological Hx Reported Smoking Status: Former smoker Past Alcohol Use History: None Reported Past Drug Use History: None Reported - Past Family History Mother Additional Family Medical History / Comment(s): mom liver issues Medications and Allergies Home Medications Medication Instructions Recorded Confirmed Type Pregabalin 25 mg PO TID 10/26/24 11/13/24 History allopurinoL 300 mg PO DAILY 10/26/24 11/13/24 History diazePAM [Valium] 5 mg PO TID PRN 10/26/24 11/13/24 History Acetaminophen [Tylenol 8 Hour] 1,300 mg PO TID 10/27/24 11/13/24 History Sodium Bicarbonate Tab 1,300 mg PO TID 10/27/24 11/13/24 History Darbepoetin Arias [Aranesp] 60 mcg SQ Q7D each 11/05/24 11/13/24 Rx Folic Acid 1 mg PO DAILY #30 tab 11/05/24 11/13/24 Rx Sodium Zirconium Cyclosilicate 10 gm PO DAILY 2 Days #2 packet 11/05/24 11/13/24 Rx [Lokelma] Oseltamivir [Tamiflu] 30 mg PO BID 11/13/24 11/13/24 History Allergies Allergy/AdvReac Type Severity Reaction Status Date / Time No Known Allergies Allergy Verified 11/13/24 18:32 Surgical - Exam Vital Signs Temp Pulse Resp BP Pulse Ox 97.4 F L 56 L 16 132/54 96 11/13/24 17:39 11/13/24 17:39 11/13/24 17:39 11/13/24 17:39 11/13/24 17:39 General appearance: The patient is alert, oriented, appears in no acute distress. HET: Head is normocephalic and atraumatic. Pupils are equal and reactive. Neck: Supple. Heart: Regular. Lungs: Equal expansion, normal respiratory effort. Abdomen: Soft, nontender, nondistended. Ileostomy. Extremities: Normal skin color and turgor. Palpable radial pulses. Neurological: No focal deficits. Alert and oriented. Results - Labs 11/14/24 08:33 11/15/24 09:45 Abnormal Lab Results - Last 24 Hours (Table) 11/14/24 11/14/24 Range/Units 08:33 08:33 RBC 3.08 L (4.30-5.90) m/uL Hgb 10.1 L (13.0-17.5) gm/dL Hct 33.4 L (39.0-53.0) % MCV 108.5 H (80.0-100.0) fL MCHC 30.3 L (31.0-37.0) g/dL Lymphocytes # 0.9 L (1.0-4.8) k/uL Macrocytosis Marked A Chloride 112 H (98-107) mmol/L Carbon Dioxide 18 L (22-30) mmol/L BUN 63 H (9-20) mg/dL Creatinine 3.03 H (0.66-1.25) mg/dL Diabetes panel 03/05/25 Range/Units 08:33 Sodium 141 (137-145) mmol/L Potassium 4.9 (3.5-5.1) mmol/L Chloride 112 H (98-107) mmol/L Carbon Dioxide 18 L (22-30) mmol/L BUN 63 H (9-20) mg/dL Creatinine 3.03 H (0.66-1.25) mg/dL Glucose 77 (74-99) mg/dL Calcium 8.9 (8.4-10.2) mg/dL AST 21 (17-59) U/L ALT 29 (4-49) U/L Alkaline Phosphatase 66 (38-126) U/L Total Protein 6.3 (6.3-8.2) g/dL Albumin 4.1 (3.5-5.0) g/dL Calcium panel 11/14/24 Range/Units 08:33 Calcium 8.9 (8.4-10.2) mg/dL Albumin 4.1 (3.5-5.0) g/dL Pituitary panel 11/14/24 Range/Units 08:33 Sodium 141 (137-145) mmol/L Potassium 4.9 (3.5-5.1) mmol/L Chloride 112 H (98-107) mmol/L Carbon Dioxide 18 L (22-30) mmol/L BUN 63 H (9-20) mg/dL Creatinine 3.03 H (0.66-1.25) mg/dL Glucose 77 (74-99) mg/dL Calcium 8.9 (8.4-10.2) mg/dL Adrenal panel 11/14/24 Range/Units 08:33 Sodium 141 (137-145) mmol/L Potassium 4.9 (3.5-5.1) mmol/L Chloride 112 H (98-107) mmol/L Carbon Dioxide 18 L (22-30) mmol/L BUN 63 H (9-20) mg/dL Creatinine 3.03 H (0.66-1.25) mg/dL Glucose 77 (74-99) mg/dL Calcium 8.9 (8.4-10.2) mg/dL Total Bilirubin 0.5 (0.2-1.3) mg/dL AST 21 (17-59) U/L ALT 29 (4-49) U/L Alkaline Phosphatase 66 (38-126) U/L Total Protein 6.3 (6.3-8.2) g/dL Albumin 4.1 (3.5-5.0) g/dL Assessment and Plan Assessment: 1. Need for outpatient IV infusions undetermined amount of time 2. Hyperkalemia 3. Acute on chronic kidney disease 4. Chronic anemia Plan: 1. Keep patient n.p.o. 2. Will plan for Port-A-Cath placement today for outpatient IV hydration Thank you for this consultation, we will continue to follow. The impression and plan of care has been dictated as directed. I performed a history and examination of this patient, discussed the same with the dictator. I agree with the dictator's note ,documented as a scribe. Any additional findings or plans will be noted.
[2024-11-15] MEDS: IV FLUID CONTINUATION 1,000 ML IV ONE (13:39)
--- NOTE | 2024-11-15 13:42 | P.PN ---
Subjective 78-year-old male was sent in by PCP because of hyperkalemia with potassium going up to 6.4. Patient received dextrose with insulin, Lokelma after which potassium have come down to 4.9 today. Patient is not on ANTONY inhibitor or angiotensin receptor katie.. Patient does have chronic kidney disease with baseline creatinine around 3 patient has an ileostomy with significant output requiring frequent IV fluid transfusions as an outpatient. Patient is also found to have influenza although patient is already on Tamiflu and is not requ iring oxygen at this time does not have any fever. Patient does take Lokelma daily basis.. 11/15/2024 Patient will undergo Port-A-Cath today possibility of discharge tomorrow his serum creatinine continue to improve. Patient serum creatinine is 2.65 today. Patient is receiving D5 with 3 A of sodium bicarbonate patient is bit hyperchloremic serum sodium within normal limits. Serum potassium is 4.5 today visit I wanted to give me a ride really once again thank you my need to come back okay show yeah yeah on second onset you can come back here again okay okay thank you thank you thank you thank you EKG yeliz I REVIEW OF SYSTEMS: All other systems are negative except those mentioned in the HPI PHYSICAL EXAMINATION: GENERAL: The patient is alert and oriented x3, not in any acute distress. Well developed, well nourished. HEENT: Pupils are round and equally reacting to light. EOMI. No scleral icterus. No conjunctival pallor. Normocephalic, atraumatic. No pharyngeal erythema. No thyromegaly. CARDIOVASCULAR: S1 and S2 present. No murmurs, rubs, or gallops. PULMONARY: Chest is clear to auscultation, no wheezing or crackles. ABDOMEN: Soft, nontender, nondistended, normoactive bowel sounds. No palpable organomegaly. Patient has an ileostomy on the right side MUSCULOSKELETAL: No joint swelling or deformity. EXTREMITIES: No cyanosis, clubbing, or pedal edema. NEUROLOGICAL: Gross neurological examination did not reveal any focal deficits. SKIN: No rashes. Assessment and plan -Hyperkalemia: Secondary to renal failure chronic kidney disease as well as acute renal failure. Improved now patient will be discharged and will continue Lokelma discussed with nephrology patient will need IV normal saline transfusion twice a week at home. Social work was consulted and is working on arranging for normal saline 1 L twice a week as recommended by nephrology and patient will nee d close follow-up with nephrology as well as PCP and repeat labs. Patient need to be on low potassium diet. Patient will be discharged on bicarbonate tablets -Acute renal failure on chronic kidney disease stage IV: Acute renal failure is secondary to significant fluid loss from his ileostomy -Influenza infection patient is not septic at this time not requiring any oxygen -Peripheral neuropathy for which patient is on pregabalin which will be continued . Patient will be discharged today for IV fluids can be arranged as an outpatient, so that patient can receive it at home twice a week Objective - Vital Signs Vital signs: Vital Signs Temp 98.1 F 11/15/24 08:36 Pulse 67 11/15/24 11:30 Resp 18 11/15/24 11:30 BP 122/60 11/15/24 11:30 Pulse Ox 97 11/15/24 11:30 FiO2 Intake & Output 11/14/24 11/15/24 11/15/24 18:59 06:59 18:59 Intake Total 10 20 Output Total 825 300 Balance -815 -280 Weight 80 kg Intake: IV 10 20 Invasive Line 2 10 10 Invasive Line 3 10 Output: Urine 225 300 Stool 600 Other: Voiding Method Toilet Toilet Urinal Urinal - Labs CBC & Chem 7: 11/14/24 08:33 11/15/24 09:45 Labs: Abnormal Lab Results - Last 24 Hours (Table) 11/15/24 Range/Units 09:45 Chloride 111 H (98-107) mmol/L BUN 51 H (9-20) mg/dL Creatinine 2.65 H (0.66-1.25) mg/dL
[2024-11-15] MEDS ORDERED: MIDAZOLAM 2 MG/2 ML VIAL ONE (14:40)
[2024-11-15] MEDS ORDERED: PROPOFOL 10 MG/ML 20 ML VIAL IV ONE (14:40)
[2024-11-15] MEDS ORDERED: KETAMINE HCL IN 0.9 % NACL 50 MG/5 ML SYRINGE ONE (14:40)
[2024-11-15] MEDS ORDERED: fentaNYL (PF) 50 MCG/ML 2 ML AMP ONE (14:40)
[2024-11-15] MEDS: LIDOCAINE 1% INJ 10MG/ML (20 ML MDV) SQ ONE (15:01)
[2024-11-15] MEDS: HEPARIN SODIUM,PORCINE 5,000 UNIT/ML 1 ML VIAL IV ONE (15:22)
--- NOTE | 2024-11-15 15:36 | FL ---
EXAMINATION TYPE: FL guided central line placement Intraoperative/procedural fluoroscopic services we re provided. CLINICAL INDICATION:Male, 78 years old with history of Port-A-Cath Placement; , [facility] FINDINGS: Right hemithorax IJ approach Port-A-Cath with distal tip at the superior cavoatrial junction. No radi ographic evidence for complication. Total fluoroscopy time is 3.7 seconds. DAP: 0.2112 Gycm2 uGym2 mGym2 Please see the operative/procedural note for further details. [facility], , 11/15/2024 3:34 PM
--- NOTE | 2024-11-15 15:43 | P.OP ---
Date of Procedure: 11/15/24 Preoperative Diagnosis: Need for long-term IV access. Postoperative Diagnosis: Same. Procedure(s) Performed: Ultrasound and fluoroscopically guided placement of a Port-A-Cath via the right internal jugular vein approach. Anesthesia: MAC Surgeon: Juan Solis Estimated Blood Loss (ml): 2 Urine output (ml): 0 Pathology: none sent Condition: stable Disposition: no change Indications for Procedure: Patient is an 78-year-old male who patient is an 78-year-old male who has a high output ileostomy who is in need of substantial intravenously administered fluid support patient is thus offered Port-A-Cath. The procedure, risk and benefits were discussed with the patient. All questions were answered to patient satisfaction. Consent form was signed. Description of Procedure: Patient was brought the op room placed in supine position administered attended anesthesia delivered by the department of anesthesiology. The patient received intravenously administered prophylactic antibiotics in the perioperative phase. Patient's anterior chest wall supraclavicular and lateral neck areas were sterilely prepped and draped in the usual manner on the bilateral basis. Utilizing ultrasound the right internal jugular vein was identified. This was fully collapsible and demonstrated no evidence of visual thrombus and thus was felt to be appropriate for IV access. 1% Xylocaine was utilized for local anesthesia of the tissues near the confluence of the 2 heads of the sternocleidomastoid muscle. Through this anesthetized area and with the aid of ultrasound a access needle was inserted into the vein. A 0.035 inch J-tip gu idewire was advanced through the needle into the superior vena cava. Its position was confirmed with fluoroscopy. The needle was withdrawn. Just inferior to the angle of the clavicle additional Xylocaine was infiltrated into the subcutaneous tissues. Xylocaine was also administered into the subcutaneous tissues between the anticipated surgical incision site and the venous access site. Skin incision was made sharply through the anesthetized area carried down through subcutaneous tissues. Hemostasis was achieved using electrocautery. The incision was deepened down to the pectoralis fascia. Subcutaneous pocket was Then created bluntly on the inferior side of the incision. The catheter tubing was then tunneled between the 2 incisions. Over the guidewire the dilator and sheath were advanced into the superior vena cava. The guidewire and dilator were withdrawn. The port was then attached to the infusion tubing and placed within the pocket. Utilizing fluoroscopy the appropriate length of the catheter tubing was then identified and the tubing was transected. The tubing was then advanced through the introducer sheath and the sheath was peeled away. Fluoroscopy demonstrated the catheter to be in good position. Blood was easily aspirated through the port and the port was then flushed with heparinized saline solution. The port was secured to the fascia with 3-0 silk suture. Deep tissues were closed with 3-0 Vicryl. Dermis was closed with 4-0 Monocryl at both incisions. Appropriate dressings were applied. Patient tolerated the procedure well and was taken to the recovery room in satisfactory and stable condition. Chest x-ray will be obtained to rule out the possibility of a pneumothorax. Total fluoroscopy time: 3 seconds.
--- NOTE | 2024-11-15 16:19 | XR ---
EXAMINATION TYPE: XR chest 1V portable DATE OF EXAM: 11/15/2024 4:05 PM COMPARISON: Chest radiographs from 11/13/2024, fluoroscopic images 11/15/2024. TECHNIQUE: XR chest 1V portable Portable AP radiograph of the chest. CLINICAL INDICATION:Male, 78 years old with history of catheter placement / pneumothorax; FINDINGS: Lungs/Pleura: There is no evidence of pleural effusion, focal consolidation, or pneumothorax. Pulmonary vascularity: Unremarkable. Heart/mediastinum: Cardiomediastinal silhouette is enlarged and stable. Musculoskeletal: No acute osseous pathology. Dextrocurvature of the thoracic spine. Other findings: None Lines/Tubes: Interval placement of right IJ Mediport catheter with distal tip at the mid SVC. IMPRESSION: Interval placement of right IJ Mediport catheter with distal tip at the mid SVC. No pneumothorax. [facility], , 11/15/2024 4:17 PM
[2024-11-16 07:15] LABS: African American GFR (CKD) 31 (>60 ml/min/1.73 sqM); Anion Gap 4 mmol/L; Blood Urea Nitrogen 43 mg/dL (9-20); Calcium 8.1 mg/dL (8.4-10.2); Carbon Dioxide 33 mmol/L (22-30); Chloride 105 mmol/L (98-107); Glucose 95 mg/dL (74-99); Non-African American GFR(CKD) 27 (>60 ml/min/1.73 sqM); Potassium 4.5 mmol/L (3.5-5.1); Sodium 142 mmol/L (137-145)
[2024-11-16 08:21] VITALS: BP 150/65; PULSE 61; RESP 15; TEMP 98.1
--- NOTE | 2024-11-16 08:39 | P.PN ---
Subjective Progress Note Date: 11/16/24 Patient is seen and examined today as a follow-up. Yesterday he underwent Port-A-Cath placement in the right IJ vein. Chest x-ray showed good placement without any pneumothorax. He denies any shortness of breath or chest pain. No pain over site. Plan is for discharge home today. Objective - Vital Signs Vital signs: Vital Signs Temp 97.9 F 11/15/24 20:15 Pulse 56 L 11/16/24 04:10 Resp 17 11/16/24 04:10 BP 130/63 11/16/24 04:10 Pulse Ox 95 11/16/24 04:10 FiO2 Intake & Output 11/15/24 11/16/24 11/16/24 18:59 06:59 18:59 Intake Total 470 20 Output Total 502 200 Balance -32 -180 Weight 79.5 kg Intake: IV 230 20 Invasive Line 2 10 Invasive Line 3 20 20 Oral 240 Output: Urine 500 200 Estimated Blood Loss 2 Other: Voiding Method Toilet Toilet Urinal Urinal # Voids 0 - Exam General appearance: The patient is alert, oriented, appears in no acute distress. HET: Head is normocephalic and atraumatic. Neck: Supple. Chest: Right upper chest wall with dressing clean dry and intact, no surrounding erythema bruising or bleeding. Nontender to palpation. Lungs: Equal expansion, normal respiratory effort. Abdomen: Soft, nondistended. Extremities: Normal skin color and turgor. Neurological: No focal deficits. Strength and sensation are grossly intact. - Labs CBC & Chem 7: 11/14/24 08:33 11/16/24 06:45 Labs: Abnormal Lab Results - Last 24 Hours (Table) 11/15/24 11/16/24 Range/Units 09:45 06:45 Chloride 111 H (98-107) mmol/L Carbon Dioxide 33 H (22-30) mmol/L BUN 51 H 43 H (9-20) mg/dL Creatinine 2.65 H 2.25 H (0.66-1.25) mg/dL Calcium 8.1 L (8.4-10.2) mg/dL Assessment and Plan Assessment: 1. Need for outpatient IV infusions undetermined amount of time status post Port-A-Cath placement 2. Hyperkalemia, resolved 3. Acute on chronic kidney disease 4. Chronic anemia Plan: 1. Continue with recommendations from nephrology 2. Patient is cleared from vascular surgery for discharge Thank you for this consultation, we will sign off at this time. The impression and plan of care has been dictated as directed. I performed a history and examination of this patient, discussed the same with the dictator. I agree with the dictator's note ,documented as a scribe. Any additional findings or plans will be noted.
[2024-11-16] MEDS: SODIUM CHLORIDE 0.9% 1,000 ML IV SCH (10:00)
--- NOTE | 2024-11-16 10:42 | P.PN ---
Subjective Progress Note Date: 11/16/24 Patient seen for follow-up of hyperkalemia and CKD. Head long-term IV catheter, placed via the right internal jugular vein, for outpatient hydration placed yesterday. Labs this morning showed potassium 4.5, creatinine 2.25, BUN 43. No acute complaints today. Objective - Vital Signs Vital signs: Vital Signs Temp 98.1 F 11/16/24 08:13 Pulse 61 11/16/24 08:14 Resp 15 11/16/24 08:13 BP 150/65 11/16/24 08:13 Pulse Ox 95 11/16/24 08:13 FiO2 Intake & Output 11/15/24 11/16/24 11/16/24 18:59 06:59 18:59 Intake Total 470 20 10 Output Total 502 200 Balance -32 -180 10 Weight 79.5 kg Intake: IV 230 20 10 Invasive Line 2 10 Invasive Line 3 20 20 10 Oral 240 Output: Urine 500 200 Estimated Blood Loss 2 Other: Voiding Method Toilet Toilet Toilet Urinal Urinal Urinal # Voids 0 1 - Exam Patient is awake, comfortable, no acute distress. Heart: S1 and S2 heard Lungs: Bilateral breath sounds are heard Abdomen: Soft and nontender Lower extremities: No edema DOCK MANAGER: grossly intact - Labs CBC & Chem 7: 11/14/24 08:33 11/16/24 06:45 Labs: Abnormal Lab Results - Last 24 Hours (Table) 11/15/24 11/16/24 Range/Units 09:45 06:45 Chloride 111 H (98-107) mmol/L Carbon Dioxide 33 H (22-30) mmol/L BUN 51 H 43 H (9-20) mg/dL Creatinine 2.65 H 2.25 H (0.66-1.25) mg/dL Calcium 8.1 L (8.4-10.2) mg/dL Assessment and Plan Assessment: #KONRAD secondary to ATN in the setting of CKD stage IV, baseline creatinine 2.62.7; had been maintained on NS at 75 cc/h and bicarb in D5W at 125 cc/h; currently being maintained on NS 100 cc/h #Hyperkalemia secondary to above and metabolic acidosis - resolved #metabolic acidosis with mildly elevated anion gap on admission secondary to GI fluid loss from ileostomy and KONRAD, currently maintained on bicarb in D5W at 125 cc/h -resolved, now discontinued #Chronic macrocytic anemia with history of folate deficiency #Anemia of CKD, hemoglobin 11/14/24 10.1 Plan: -Switch IV fluids to NS 100 cc/h -Plan for outpatient IV fluid hydration 2x/week -Resume home lokelma and oral sodium bicarb on discharge -Avoid nephrotoxic agents -Discussed decreasing dose of Acetaminophen on multiple occassions -Stable for discharge from nephrology standpoint, with follow up outpatient
[2024-11-16] MEDS: ONDANSETRON ODT 4 MG TAB PO STA (12:10)
--- NOTE | 2024-11-16 17:03 | P.DS ---
Providers Date of admission: 11/13/24 20:00 Expected date of discharge: 11/16/24 Attending physician: Piotr Gutiérrez Consults: 11/13/24 19:58 Consult Physician Routine Consulting Provider: Marci Miller Consult Reason/Comments: hyperkalemia, CKD Do you want consulting provider notified?: Already Contacted 11/14/24 14:47 Consult Physician Routine Consulting Provider: Rosemary West Consult Reason/Comments: needs mcc cath placement for IV infusion o/p Do you want consulting provider notified?: Yes Primary care physician: Syeda Leahy Hospital Course: Final diagnosis -Hyperkalemia: Secondary to chronic renal failure with chronic kidney disease as well as acute renal failure. -Acute renal failure on chronic kidney disease stage IV: Acute renal failure is secondary to significant fluid loss from his ileostomy -Metabolic acidosis secondary to GI fluid loss from high output ileostomy and acute kidney injury, improving -Chronic macrocytic anemia with iron folate deficiency, anemia of chronic kidney disease -Influenza infection, patient is not septic at this time and not requiring any oxygen -Peripheral neuropathy history GI prophylaxis DVT prophylaxis Full code Discharge disposition Patient is being discharged in a stable condition with guarded prognosis to home with home care. Patient will follow-up with Dr. Leahy in the outpatient setting upon discharge. Patient is to continue with close outpatient follow-up with nephrology as well as urology outpatient as scheduled. Total time taken is greater than 35 minutes. Hospital course This is a 78-year-old male who was recently admitted with acute renal failure with acute tubular necrosis on top of chronic kidney disease being closely monitored with nephrology following. Patient was chronically receiving IV infusions outpatient and will need to continue and patient came for line placement initially. Patient reported to feeling unwell and increased fluid l oss from ileostomy as well as volume loss secondary to acute influenza A infection. Patient has received port for infusion per vascular surgery and will continue with IV infusions twice weekly of normal saline. Patient to follow-up with nephrology as well as urology and hematology outpatient. Patient will continue short course of Tamiflu to complete the course. Patient instructed to follow-up with primary care provider as well. Currently no reports of chest pain, shortness of breath, or palpitations. Patient is afebrile. No reports of nausea or vomiting and patient is tolerating diet. Patient will be discharged home high risk for readmissions given significant comorbidities. Today. Physical exam: Gen: This is a 78-year-old male who is awake, alert and oriented x 3, thin build, elderly appearing HEENT: Head is atraumatic, normocephalic. Pupils equal, round. Sclerae is anicteric. NECK: Supple. No JVD. No lymphadenopathy. No thyromegaly. LUNGS: Clear to auscultation. No wheezes or rhonchi. No intercostal retractions. HEART: Regular rate and rhythm. No murmur. ABDOMEN: Soft. Thin, bowel sounds are present. No masses. No tenderness. EXTREMITIES: No pedal edema. No calf tenderness. NEUROLOGICAL: Patient is awake, alert and oriented x3. Cranial nerves 2 through 12 are grossly intact. Please refer to medication reconciliation sheet for a list of medications. The impression and plan of care has been dictated by Barbi Feng, Nurse Practitioner as directed. Dr. Monet MD I have performed a history and examination and MDM of this patient, discussed the same with the dictator, and agree with the dictator's assessment and plan as written ,documented as a scribe. Based on total visit time, I have performed more than 50% of the visit. Patient Condition at Discharge: Fair Plan - Discharge Summary Discharge Rx Participant: No New Discharge Prescriptions: New Ondansetron Odt [Zofran Odt] 4 mg PO Q8HR PRN #20 tab PRN Reason: Nausea Continue diazePAM [Valium] 5 mg PO TID PRN PRN Reason: Muscle Spasm Pregabalin 25 mg PO TID Sodium Bicarbonate Tab 1,300 mg PO TID Sodium Zirconium Cyclosilicate [Lokelma] 10 gm PO DAILY 2 Days #2 packet allopurinoL 300 mg PO DAILY Acetaminophen [Tylenol 8 Hour] 1,300 mg PO TID Darbepoetin Arias [Aranesp] 60 mcg SQ Q7D each Folic Acid 1 mg PO DAILY #30 tab Oseltamivir [Tamiflu] 30 mg PO BID Discharge Medication List Pregabalin 25 mg PO TID 10/26/24 [History] allopurinoL 300 mg PO DAILY 10/26/24 [History] diazePAM [Valium] 5 mg PO TID PRN 10/26/24 [History] Acetaminophen [Tylenol 8 Hour] 1,300 mg PO TID 10/27/24 [History] Sodium Bicarbonate Tab 1,300 mg PO TID 10/27/24 [History] Darbepoetin Arias [Aranesp] 60 mcg SQ Q7D each 11/05/24 [Rx] Folic Acid 1 mg PO DAILY #30 tab 11/05/24 [Rx] Sodium Zirconium Cyclosilicate [Lokelma] 10 gm PO DAILY 2 Days #2 packet 11/05/24 [Rx] Oseltamivir [Tamiflu] 30 mg PO BID 11/13/24 [History] Ondansetron Odt [Zofran Odt] 4 mg PO Q8HR PRN #20 tab 11/16/24 [Rx] Follow up Appointment(s)/Referral(s): Marci Miller MD [STAFF PHYSICIAN] - 1 Week Syeda Leahy MD [Primary Care Provider] - 11/19/24 10:45 am [facility], [REFERRING] - [facility] Visiting Nurse, [NON-STAFF] - Patient Instructions/Handouts: Chronic Kidney Disease Diet (DC), Influenza (DC), Hyperkalemia (ED) Activity/Diet/Wound Care/Special Instructions: [facility] will delivery supplies between 6pm and 8pm today First home care visit planned for Tuesday11/19/24 Low potassium diet Discharge Disposition: HOME SELF-CARE
== END 2024-11-16 12:13 | disposition home or self-care (01) | DRG 674 ==
LOC: EC 17:33 → 3SCARD 20:00 → 1SOBS 20:36 → 3SCARD 20:40
PROVIDERS: ADMIT Hospitalist; ATTEND Hospitalist
PROC: 02HV33Z Insertion of Infusion Device into Superior Vena Cava, Percutaneous Approach (ICD-10-PCS; 2024-11-15)
PROC: 0JH63XZ Insertion of Tunneled Vascular Access Device into Chest Subcutaneous Tissue and Fascia, Percutaneous Approach (ICD-10-PCS; principal; 2024-11-15 10:00)
DX: N17.0 Acute kidney failure with tubular necrosis (principal); E87.20 Acidosis, unspecified; D63.1 Anemia in chronic kidney disease; N18.4 Chronic kidney disease, stage 4 (severe); Z93.2 Ileostomy status; E87.5 Hyperkalemia; E86.9 Volume depletion, unspecified; D53.9 Nutritional anemia, unspecified; J10.1 Influenza due to other identified influenza virus with other respiratory manifestations; G62.9 Polyneuropathy, unspecified; E53.8 Deficiency of other specified B group vitamins; E87.8 Other disorders of electrolyte and fluid balance, not elsewhere classified; Z87.891 Personal history of nicotine dependence; Z79.899 Other long term (current) drug therapy; Z85.528 Personal history of other malignant neoplasm of kidney; Z90.49 Acquired absence of other specified parts of digestive tract; Z85.830 Personal history of malignant neoplasm of bone
CPT/HCPCS: 36415; 71045; 71046; 77001; 80048; 80053; 81003; 82150; 83605; 83690; 84132; 85025; 85610; 85730; 87636; 93005; 94640; 96361; 96365; 96366; 96372; 96374; 96375; 96376; 99291

== ENCOUNTER 2025-01-23 12:30 | Inpatient (IN) | payer MEDICARE ==
[2025-01-23] MEDS: SODIUM CHLORIDE 0.9% 1,000 ML IV ONE (13:46)
[2025-01-23 14:00] LABS: Basophils # (A) 0.04 10*3/uL (0.00-0.10); Basophils % (A) 0.4 %; Eosinophils # (A) 0.06 10*3/uL (0.04-0.35); Eosinophils % (A) 0.7 %; HCT 33.4 % (39.6-50.0); HGB 11.1 g/dL (13.0-17.0); Lymphocytes # (A) 0.97 10*3/uL (0.90-5.00); Lymphocytes % (A) 10.8 %; MCHC 33.2 g/dL (32.0-37.0); MCV 102.5 fL (80.0-97.0); Monocytes % (A) 5.6 %; Neutrophils % (A) 82.3 %; Platelet Count 163 10*3/uL (140-440); RBC 3.26 10*6/uL (4.40-5.60); RDW 14.6 % (11.5-14.5); WBC 8.99 10*3/uL (4.50-10.00)
[2025-01-23 14:08] LABS: ALT 18 U/L (4-49); AST 22 U/L (17-59); African American GFR (CKD) 26 (>60 ml/min/1.73 sqM); Albumin 4.3 g/dL (3.5-5.0); Alkaline Phosphatase 85 U/L (38-126); Anion Gap 11 mmol/L; Blood Urea Nitrogen 42 mg/dL (9-20); Calcium 9.8 mg/dL (8.4-10.2); Carbon Dioxide 24 mmol/L (22-30); Chloride 105 mmol/L (98-107); Glucose 97 mg/dL (74-99); Non-African American GFR(CKD) 23 (>60 ml/min/1.73 sqM); Potassium 4.6 mmol/L (3.5-5.1); Sodium 140 mmol/L (137-145); Total Bilirubin 0.7 mg/dL (0.2-1.3); Total Protein 6.7 g/dL (6.3-8.2)
[2025-01-23] MEDS: SODIUM CHLORIDE 0.9% 1,000 ML IV SCH ×2 (16:07→17:49)
[2025-01-23] MEDS: CEFEPIME 1 GM in SODIUM CHLORIDE 0.9% 50 ML IVPB STA (16:45)
[2025-01-23] MEDS ORDERED: NALOXONE 0.4 MG/ML 1 ML VIAL IV PRN (16:55)
[2025-01-23] MEDS ORDERED: ACETAMINOPHEN TAB 325 MG TAB PO PRN (16:55)
[2025-01-23] MEDS ORDERED: ONDANSETRON 4 MG/2 ML VIAL IVP PRN (16:55)
[2025-01-23 16:58] LABS: Appearance,Urine Cloudy (Clear); Bacteria,Urine Many /hpf; Bilirubin,Urine Negative (Negative); Blood,Urine Negative (Negative); Color,Urine Light Yellow; Glucose,Urine (UA) Negative (Negative); Ketones,Urine Negative (Negative); Leukocyte Esterase,Urine Large (Negative); Mucus,Urine Rare /hpf; Nitrite,Urine Positive (Negative); Protein,Urine Trace (Negative); RBC,Urine 8 /hpf (0-5); Specific Gravity,Urine 1.022 (1.001-1.035); Urobilinogen,Urine <2.0 mg/dL (<2.0); WBC,Urine >182 /hpf (0-5)
--- NOTE | 2025-01-23 17:01 | ED ---
General Adult HPI - General Chief complaint: Urogenital Stated complaint: possible UTI Time Seen by Provider: 01/23/25 13:20 Source: patient, RN notes reviewed, old records reviewed Mode of arrival: ambulatory Limitations: no limitations - History of Present Illness Initial comments: Patient is a 79-year-old male who presents emergency department complaining of urinary complaints. 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 Has a history of colostomy as well as CKD. Was sent in by his PCP for urinary complaints. Has a history of highly resistant organisms in his urinalysis when he has UTIs. He had symptoms approximately 2 or 3 weeks ago which did resolve with some oral antibiotics however they returned. Has had symptoms for last 2 days and was instructed here to be admitted for IV antibiotics. Cefepime usually addresses his UTIs. He denies any other acute complaints at this time. He is due to have some studies taken from the rectal testicular fistula. Presents for further evaluation. - Related Data Home Medications Medication Instructions Recorded Confirmed Pregabalin 25 mg PO TID 10/26/24 11/13/24 allopurinoL 300 mg PO DAILY 10/26/24 11/13/24 diazePAM [Valium] 5 mg PO TID PRN 10/26/24 11/13/24 Acetaminophen [Tylenol 8 Hour] 1,300 mg PO TID 10/27/24 11/13/24 Sodium Bicarbonate Tab 1,300 mg PO TID 10/27/24 11/13/24 Oseltamivir [Tamiflu] 30 mg PO BID 11/13/24 11/13/24 Previous Rx's Medication Instructions Recorded Darbepoetin Arias [Aranesp] 60 mcg SQ Q7D each 11/05/24 Folic Acid 1 mg PO DAILY #30 tab 11/05/24 Sodium Zirconium Cyclosilicate 10 gm PO DAILY 2 Days #2 packet 11/05/24 [Lokelma] Ondansetron Odt [Zofran Odt] 4 mg PO Q8HR PRN #20 tab 11/16/24 Allergies Allergy/AdvReac Type Severity Reaction Status Date / Time No Known Allergies Allergy Verified 01/23/25 12:34 Review of Systems ROS Statement: Those systems with pertinent positive or pertinent negative responses have been documented in the HPI. Review of Systems: CONST: Denies fever EYES: Denies blurry vision ENT: Denies nasal congestion C/V: Denies Chest pain RESP: Denies shortness of breath GI: Denies abdominal pain : Endorses pyuria SKIN: Denies rash. MSK: Denies joint pain. NEURO: Denies headache ROS Other: All systems not noted in ROS Statement are negative. 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 HEAD: Normal with no signs of head trauma. EYES: EOMI ENT: Hearing grossly intact, normal oropharynx. RESPIRATORY: Clear breath sounds bilaterally. No wheezes, rales, or rhonchi. C/V: Regular rate and rhythm. S1 and S2 auscultated, peripheral pulses 2+ and intact throughout ABD: Abdomen soft, nondistended, nontender. Colostomy is in place and appears to be draining appropriately. EXT: No obvious deformity SKIN: No rashes or lesions observed on exposed skin. NEURO: Alert and oriented x 4 Limitations: no limitations Course Vital Signs 01/23/25 12:32 Temperature 97.9 F Pulse Rate 63 Respiratory 20 Rate Blood Pressure 113/57 O2 Sat by Pulse 96 Oximetry Medical Decision Making - Medical Decision Making Was pt. sent in by a medical professional or institution (, PA, TURBINE MECHANIC, urgent care, hospital, or shelter...) When possible be specific @ -Simple PCP for admission for IV antibiotics. Did you speak to anyone other than the patient for history (EMS, parent, family, police, friend...)? What history was obtained from this source @ -No Did you review nursing and triage notes (agree or disagree)? Why? @ -I reviewed and agree with nursing and triage notes Were old charts reviewed (outside hosp., previous admission, EMS record, old EKG, old radiological studies, urgent care reports/EKG's, shelter records)? Report findings @ -No old charts were reviewed Differential Diagnosis (chest pain, altered mental status, abdominal pain women, abdominal pain men, vaginal bleeding, weakness, fever, dyspnea, syncope, headache, dizziness, GI bleed, back pain, seizure, CVA, palpatations, mental health, musculoskeletal)? @ -UTI, pyelonephritis, recurrent UTIs, CKD. This list is not all inclusive. EKG interpreted by me (3pts min.). @ -None done X-rays interpreted by me (1pt min.). @ -None done CT interpreted by me (1pt min.). @ -None done U/S interpreted by me (1pt. min.). @ -None done What testing was considered but not performed or refused? (CT, X-rays, U/S, labs)? Why? @ -None What meds were considered but not given or refused? Why? @ -None Did you discuss the management of the patient with other professionals (professionals i.e. , PA, TURBINE MECHANIC, lab, RT, psych nurse, social service director, wing mailer machine operator, teacher, civil preparedness officer, director case management)? Give summary @ -Spoke with Dr. Gutiérrez who accepted the admission. Patient was also mention to Dr. Miller who is aware of the patient. Was smoking cessation discussed for >3mins.? @ -No Was critical care preformed (if so, how long)? @ -No Were there social determinants of health that impacted care today? How? (Homelessness, low income, unemployed, alcoholism, drug addiction, transportation, low edu. Level, literacy, decrease access to med. care, long-term, rehab)? @ -No Was there de-escalation of care discussed even if they declined (Discuss DNR or withdrawal of care, Hospice)? DNR status @ -No What co-morbidities impacted this encounter? (DM, HTN, Smoking, COPD, CAD, Cancer, CVA, ARF, Chemo, Hep., AIDS, mental health diagnosis, sleep apnea, morbid obesity)? @ -Recurrent UTIs Was patient admitted / discharged? Hospital course, mention meds given and route, prescriptions, significant lab abnormalities, going to OR and other pertinent info. @ -Based on patient's presentation physical exam, presents emergency department complaining of recurrent UTI. States he has noticed pyuria. Has required IV antibiotics, specifically cefepime in the past for UTIs. Presents for further evaluation at this time. We obtain urinalysis, basic abdominal laboratory studies. He was in agreement this plan. He will be given IV fluids as well. Urine culture and blood cultures ordered. Laboratory studies returned remarkable for stable CKD with a creatinine of 2.57 which seems to be near his baseline.Urinalysis concerning for UTI. Patient initiated on cefepime. Consult placed to Dr. Holland of infectious disease as well as nephrology. I spoke with the admitting provider, Dr. Gutiérrez who accepted the admission. Undiagnosed new problem with uncertain prognosis? @ -No Drug Therapy requiring intensive monitoring for toxicity (Heparin, Nitro, Insulin, Cardizem)? @ -No Were any procedures done? @ -No Diagnosis/symptom? @ -Recurrent UTIs, CKD Acute, or Chronic, or Acute on Chronic? @ -Acute Uncomplicated (without systemic symptoms) or Complicated (systemic symptoms)? @ -Complicated Side effects of treatment? @ -No Exacerbation, Progression, or Severe Exacerbation? @ -No Poses a threat to life or bodily function? How? (Chest pain, USA, PA, pneumonia, PE, COPD, DKA, ARF, appy, cholecystitis, CVA, Diverticulitis, Homicidal, Suicidal, threat to staff... and all critical care pts) @ -Yes - Lab Data Result diagrams: 01/23/25 13:41 01/23/25 13:41 Lab Results 01/23/25 01/23/25 01/23/25 Range/Units 13:41 13:41 16:28 WBC 8.99 (4.50-10.00) 10*3/uL RBC 3.26 L (4.40-5.60) 10*6/uL Hgb 11.1 L (13.0-17.0) g/dL Hct 33.4 L (39.6-50.0) % MCV 102.5 H (80.0-97.0) fL MCH 34.0 H (27.0-32.0) pg MCHC 33.2 (32.0-37.0) g/dL Plt Count 163 (140-440) 10*3/uL MPV 10.0 (9.5-12.2) fL Immature Gran % (Auto) 0.2 % Neutrophils % 82.3 % Lymphocytes % 10.8 % Monocytes % 5.6 % Eosinophils % 0.7 % Basophils % 0.4 % Immature Gran # 0.02 (0.00-0.04) 10*3/uL Neutrophils # 7.40 (1.80-7.70) 10*3/uL Lymphocytes # 0.97 (0.90-5.00) 10*3/uL Monocytes # 0.50 (0.20-1.00) 10*3/uL Eosinophils # 0.06 (0.04-0.35) 10*3/uL Basophils # 0.04 (0.00-0.10) 10*3/uL Sodium 140 (137-145) mmol/L Potassium 4.6 (3.5-5.1) mmol/L Chloride 105 (98-107) mmol/L Carbon Dioxide 24 (22-30) mmol/L Anion Gap 11 mmol/L BUN 42 H (9-20) mg/dL Creatinine 2.57 H (0.66-1.25) mg/dL Est GFR (CKD-EPI)AfAm 26 (>60 ml/min/1.73 sqM) Est GFR (CKD-EPI)NonAf 23 (>60 ml/min/1.73 sqM) Glucose 97 (74-99) mg/dL Calcium 9.8 (8.4-10.2) mg/dL Total Bilirubin 0.7 (0.2-1.3) mg/dL AST 22 (17-59) U/L ALT 18 (4-49) U/L Alkaline Phosphatase 85 (38-126) U/L Total Protein 6.7 (6.3-8.2) g/dL Albumin 4.3 (3.5-5.0) g/dL Urine Color Light Yellow Urine Appearance Cloudy (Clear) Urine pH 5.0 (5.0-8.0) Ur Specific [place] 1.022 (1.001-1.035) Urine Protein Trace H (Negative) Urine Glucose (UA) Negative (Negative) Urine Ketones Negative (Negative) Urine Blood Negative (Negative) Urine Nitrite Positive (Negative) Urine Bilirubin Negative (Negative) Urine Urobilinogen <2.0 (<2.0) mg/dL Ur Leukocyte Esterase Large H (Negative) Urine RBC 8 H (0-5) /hpf Urine WBC >182 H (0-5) /hpf Urine WBC Clumps Many H (None) /hpf Urine Bacteria Many H (None) /hpf Urine Mucus Rare H (None) /hpf Disposition Clinical Impression: CKD (chronic kidney disease), UTI (urinary tract infection) Disposition: ADMITTED IP TO THIS HOSP Condition: Stable Referrals: Syeda Leahy MD [Primary Care Provider] - 1-2 days Time of Disposition: 17:00
[2025-01-23 18:51] LABS: Influenza A Not Detected (Not Detectd); Influenza B Not Detected (Not Detectd); RSV Not Detected (Not Detectd)
[2025-01-23] MEDS: HEPARIN SODIUM,PORCINE 5,000 UNIT/ML 1 ML VIAL SQ SCH (20:16)
--- NOTE | 2025-01-23 22:13 | P.CONS ---
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, prostatitis an episode of sepsis secondary urinary source back in October 2025 culture at that time was positive for Enterobacter, presenting to the hospital concerning for significant cloudy urine symptoms started the day of presentation to the hospital has been complaining of some weakness though denies having any suprapubic or flank pain no nausea no vomiting no high-grade fever on presentation to the hospital patient was afebrile patient was not tachycardic hypotensive or hypoxic he did have a white count of 8.99 creatinine is 2.57 electrolytes has been normal liver enzymes are normal urine has been positive influenza RSV COVID testing was negative patient was started on cefepime infectious disease was consulted for further management of antibiotic therapy Review of Systems Positive point and negatives has been mentioned in the HPI, complete review of systems was performed and all other systems are negative 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 Past Anesthesia/Blood Transfusion Reactions: No Reported Reaction Past Psychological History: No Psychological Hx Reported Smoking Status: Former smoker Past Alcohol Use History: None Reported Past Drug Use History: None Reported - Past Family History Mother Additional Family Medical History / Comment(s): mom liver issues Medications and Allergies Home Medications Medication Instructions Recorded Confirmed Type Pregabalin 25 mg PO TID 10/26/24 01/23/25 History allopurinoL 300 mg PO DAILY 10/26/24 01/23/25 History diazePAM [Valium] 5 mg PO HS 10/26/24 01/23/25 History Acetaminophen [Tylenol 8 Hour] 1,300 mg PO TID 10/27/24 01/23/25 History Sodium Bicarbonate Tab 1,300 mg PO TID 10/27/24 01/23/25 History Sodium Zirconium Cyclosilicate 10 gm PO DAILY 2 Days #2 packet 11/05/24 01/23/25 Rx [Lokelma] Cyanocobalamin/Cobamamide [Vitamin 2 tab SL DAILY 01/23/25 01/23/25 History B-12 5,000 Mcg Tab Sl] Darbepoetin Arias [Aranesp] 40 mcg SQ FR 01/23/25 01/23/25 History Allergies Allergy/AdvReac Type Severity Reaction Status Date / Time No Known Allergies Allergy Verified 01/23/25 18:29 Physical Exam Vitals: Vital Signs Temp Pulse Resp BP Pulse Ox 01/23/25 12:32 97.9 F 63 20 113/57 96 Intake and Output 01/23/25 01/23/25 01/23/25 06:59 14:59 22:59 Other: Weight 77.111 kg GENERAL DESCRIPTION: Elderly male up in bed, no distress. No tachypnea or accessory muscle of respiration use. HEENT: Shows Pallor , no scleral icterus. Oral mucous membrane is dry. NECK: Trachea central, no thyromegaly. LUNGS: Unlabored breathing. Clear to auscultation anteriorly. No wheeze or crackle. HEART: S1, S2, regular rate and rhythm. No loud murmur ABDOMEN: Soft, no tenderness , EXTREMITIES: No edema of feet. SKIN: No rash, no masses palpable. NEUROLOGICAL: The patient is awake, alert, oriented x3, mood and affect normal. Results CBC & Chem 7: 01/23/25 13:41 01/23/25 13:41 Labs: Abnormal Lab Results - Last 24 Hours (Table) 01/23/25 01/23/25 01/23/25 Range/Units 13:41 13:41 16:28 RBC 3.26 L (4.40-5.60) 10*6/uL Hgb 11.1 L (13.0-17.0) g/dL Hct 33.4 L (39.6-50.0) % MCV 102.5 H (80.0-97.0) fL MCH 34.0 H (27.0-32.0) pg BUN 42 H (9-20) mg/dL Creatinine 2.57 H (0.66-1.25) mg/dL Urine Protein Trace H (Negative) Ur Leukocyte Esterase Large H (Negative) Urine RBC 8 H (0-5) /hpf Urine WBC >182 H (0-5) /hpf Urine WBC Clumps Many H (None) /hpf Urine Bacteria Many H (None) /hpf Urine Mucus Rare H (None) /hpf Assessment and Plan (1) CKD (chronic kidney disease) Current Visit: Yes Status: Acute Code(s): N18.9 - CHRONIC KIDNEY DISEASE, UNSPECIFIED SNOMED Code(s): 327716949 (2) UTI (urinary tract infection) Current Visit: Yes Status: Acute Code(s): N39.0 - URINARY TRACT INFECTION, SITE NOT SPECIFIED SNOMED Code(s): 34680968 Plan: 1patient presenting the hospital with significant cloudy urine in this patient who did have multiple comorbidities and there was concern for possible rectovesical fistula with the patient was supposed to have Gastrografin enema study in the outpatient setting and did have an episode of sepsis secondary to Enterobacter in October 2024 2-patient with chronic kidney disease and high risk of nephrotoxicity 3-blood urine culture has been obtained results will be followed 4-patient will empirically treated with cefepime while waiting for the culture to finalize and may benefit from a Gastrografin enema during this hospital stay to rule out any rectovesical fistula mucus was found for these recurrent UTIs Multiple question concern answered We will follow on clinical condition and cultures to further adjust medication if needed Thank you for this consultation we will follow the patient along with you Dictation was produced using [employer] dictation software. please excuse any grammatical, word or spelling errors. Time with Patient: Greater than 30
[2025-01-23] MEDS: PREGABALIN 25 MG CAP PO SCH (23:00)
[2025-01-23] MEDS: diazePAM 5 MG TAB PO SCH (23:00)
[2025-01-23] MEDS: allopurinoL 100 MG TAB PO SCH (23:00)
[2025-01-23] MEDS: SODIUM BICARBONATE TAB 650 MG TAB PO SCH (23:01)
[2025-01-23] MEDS: ACETAMINOPHEN TAB 325 MG TAB PO SCH (23:01)
[2025-01-24] MEDS: allopurinoL 300 MG TAB PO SCH (00:02)
--- NOTE | 2025-01-24 04:22 | HP ---
HISTORY AND PHYSICAL CHIEF COMPLAINT: UTI. HISTORY OF PRESENT ILLNESS: This is an 79-year-old gentleman with past medical history of multiple medical problems, had history of spinal cord tumor. The patient also had colon cancer and with colostomy. The patient was recently admitted with Enterobacter cloacae, which was rather resistant recently. Currently, the patient is having chills and also the urine was discolored, cloudy, and the urine dipstick was positive for bacteria. The patient was also being evaluated for a colovesical fistula per [facility] surgeon at this time. There is no history of any fever, rigors, or chills at this time. The creatinine is also worsened at 2.57. The patient is receiving IV fluids at home per Nephrology recommendations. Previously, creatinine was worsened up to 5.28. PAST MEDICAL HISTORY: History of renal disease, metabolic acidosis, history of myelopathy, history of colon cancer, and malignant sarcoma at C6. Rest of history and chart also reviewed. HOME MEDICATIONS: Reviewed, include allopurinol. Dose and rest of medications reviewed. ALLERGIES: None. FAMILY HISTORY: Liver disease in family. 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 Previous history of smoking. REVIEW OF SYSTEMS: Fourteen-point review of systems is negative except as mentioned earlier. PHYSICAL EXAMINATION: VITAL SIGNS: Pulse 63, blood pressure n, and respirations 20. HEENT: Conjunctivae normal. NECK: No jugular venous distention. CARDIOVASCULAR: S1, S2 muffled. RESPIRATION: Breath sounds diminished at the bases. A few scattered rhonchi. ABDOMEN: Soft. Colostomy present. LEGS: No edema. No swelling. NERVOUS SYSTEM: Nonfocal. LABORATORY DATA: Creatinine 2.57. Hemoglobin 11.11. ASSESSMENT: 1. 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 2. History of Enterobacter cloacae, resistant, urinary tract infection. 3. History of colon cancer with colostomy. 4. 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 5. History of metabolic acidosis. 6. [id number] kidney failure. 7. Multiple complex medical issues. RECOMMENDATIONS AND DISCUSSION: This is an 79-year-old gentleman presented with multiple complex medical issues. At this time, I would recommend broad-spectrum IV antibiotics, infectious Disease cultures. I would also recommend resume the home medications. As mentioned earlier, the patient had a colovesical fistula possibly giving by some recurrent episodes of significant severe UTI. I would recommend to complete the Gastrografin study as an outpatient as soon as possible and then follow up with the patient's GI surgeon also as an outpatient. Overall prognosis guarded because of multiple complex medical issues. Discussed with family at length. Further recommendations to follow. See orders for details. MMODL / IJN: [id number] / MTDCelestino
[2025-01-24] MEDS: CEFEPIME 1 GM in SODIUM CHLORIDE 0.9% 50 ML IVPB SCH (05:01)
[2025-01-24] MEDS: PANTOPRAZOLE 40 MG TABLET PO SCH (06:11)
[2025-01-24 08:18] LABS: ALT 15 U/L (10-49); AST 18 U/L (14-35); Albumin 3.6 g/dL (3.8-4.9); Albumin/Globulin Ratio 2.12 Ratio (1.60-3.17); Alkaline Phosphatase 77 U/L (41-126); Blood Urea Nitrogen 36.8 mg/dL (9.0-27.0); Calcium 8.5 mg/dL (8.7-10.3); Chloride 112 mmol/L (96-109); Globulin 1.7 g/dL (1.6-3.3); Glucose 89 mg/dL (70-110); Potassium 4.5 mmol/L (3.5-5.5); Sodium 143 mmol/L (135-145); Total Bilirubin 0.3 mg/dL (0.3-1.2); Total Protein 5.3 g/dL (6.2-8.2)
[2025-01-24 08:23] LABS: Basophils # (A) 0.06 X 10*3/uL (0.00-0.10); Basophils % (A) 0.9 %; Eosinophils # (A) 0.17 X 10*3/uL (0.04-0.35); Eosinophils % (A) 2.5 %; HCT 30.7 % (39.6-50.0); HGB 9.8 g/dL (13.0-17.0); Lymphocytes # (A) 1.22 X 10*3/uL (0.90-5.00); Lymphocytes % (A) 17.9 %; MCH 33.7 pg (27.0-32.0); MCHC 31.9 g/dL (32.0-37.0); MCV 105.5 FL (80.0-97.0); Mean Platelet Volume 10.5 FL (9.5-12.2); Monocytes % (A) 10.2 %; NRBC Per 100 WBC 0 X 10*3/uL (0.00-0.01); Neutrophils # (A) 4.66 X 10*3/uL (1.80-7.70); Neutrophils % (A) 68.2 %; Platelet Count 145 X 10*3/uL (140-440); RBC 2.91 X 10*6/uL (4.40-5.60); RDW 14.7 % (11.5-14.5); WBC 6.83 X 10*3/uL (4.50-10.00)
[2025-01-24] MEDS: CYANOCOBALAMIN 500 MCG TAB PO SCH (08:43)
[2025-01-24] MEDS: SODIUM ZIRCONIUM CYCLOSILICATE 10 GM PACKET PO SCH (08:45)
[2025-01-24] MEDS ORDERED: allopurinoL 300 MG TAB PO SCH (09:00)
--- NOTE | 2025-01-24 12:48 | P.NPCON ---
History of Present Illness - Reason for Consult chronic renal failure - History of Present Illness Patient is an 78-year-old male with history of chronic kidney disease stage IV with baseline creatinine around 2 mg/dL. Patient is maintained on outpatient IV hydration due to multiple episodes of volume depletion and acute kidney injury due to high output ileostomy. Patient is admitted to the hospital for IV antibiotics for UTI. He denied any fever chills nausea vomiting. There is concern for possible colovesical fistula. Serum creatinine 2.5 on admission and decreased to 2.3. Currently maintained on IV fluids. Blood pressure is not low. 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 Past Anesthesia/Blood Transfusion Reactions: No Reported Reaction Past Psychological History: No Psychological Hx Reported Smoking Status: Former smoker Past Alcohol Use History: None Reported Past Drug Use History: None Reported - Past Family History Mother Additional Family Medical History / Comment(s): mom liver issues Medications and Allergies Home Medications Medication Instructions Recorded Confirmed Type Pregabalin 25 mg PO TID 10/26/24 01/23/25 History allopurinoL 300 mg PO DAILY 10/26/24 01/23/25 History diazePAM [Valium] 5 mg PO HS 10/26/24 01/23/25 History Acetaminophen [Tylenol 8 Hour] 1,300 mg PO TID 10/27/24 01/23/25 History Sodium Bicarbonate Tab 1,300 mg PO TID 10/27/24 01/23/25 History Sodium Zirconium Cyclosilicate 10 gm PO DAILY 2 Days #2 packet 11/05/24 01/23/25 Rx [Lokelma] Cyanocobalamin/Cobamamide [Vitamin 2 tab SL DAILY 01/23/25 01/23/25 History B-12 5,000 Mcg Tab Sl] Darbepoetin Arisa [Aranesp] 40 mcg SQ FR 01/23/25 01/23/25 History Allergies Allergy/AdvReac Type Severity Reaction Status Date / Time No Known Allergies Allergy Verified 01/23/25 18:29 Physical Exam Vitals: Vital Signs Temp Pulse Pulse Resp BP BP Pulse Ox 01/24/25 07:13 98.7 F 62 17 123/41 95 01/24/25 01:27 98.0 F 60 15 118/60 97 01/23/25 22:28 98.0 F 81 17 155/63 98 01/23/25 22:00 81 17 01/23/25 20:43 97.5 F L 77 18 97/63 97 01/23/25 18:08 60 18 110/62 100 Intake and Output 01/23/25 01/24/25 01/24/25 22:59 06:59 14:59 Intake Total 1620 Balance 1620 Intake: Oral 1620 Other: Voiding Method Urinal Urinal # Voids 4 # Bowel Movements 3 Weight 77.111 kg Patient is awake, comfortable, no acute distress Alert oriented x 3 Examination of the heart S1 and S2 Examination of the lungs bilateral breath sounds are heard Abdomen is soft nontender 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 Acute kidney injury, mostly related to volume depletion, improving with IV hydration 2. Chronic kidney disease stage IV with baseline creatinine around 2 milligrams per deciliter etiology is previous episodes of acute kidney injury and chronic use of NSAIDs and high doses of acetaminophen 3. UTI with urine culture currently pending 4. Anemia of chronic disease, no active bleeding noted Plan: Continue with antibiotics Follow-up on urine cultures Add aranesp for anemia. Patient needs to follow-up with surgery regarding possible colovesical fistula Thank you for the consultation. Will continue to follow the patient with you during his hospitalization.
--- NOTE | 2025-01-24 14:29 | P.CN ---
Psychiatric Consult - . Consult date: 01/24/25 Consult:: 01/24/25 14:05 IDENTIFYING DATA: This patient is a 79-year-old male REASON FOR REFERRAL: Psychiatry was consulted for "future suicidal plan" HISTORY OF PRESENT ILLNESS: The patient presented to the hospital initially to the ER on 01/23 describing urinary complaints. Patient apparently has a history of chronic kidney disease has a history of colostomy. He apparently also has a history of chronic UTIs. He came to the hospital after going to his primary care doctor. Patients nurse claims that the overnight nurse heard patient states that "if things do not go my way that I know how to end my life". Patient's nurse claims that she has not heard him verbalize this or verbalize any active plans of suicide or ideations. Field Service Technician attempted to see patient today at the bedside he was up near the TV in the corner, he was attempting to go through his bag and also takes his IV pump. Field Service Technician introduced himself and attempted to engage with patient in the interview however patient became fairly firm and requested not to speak to scenario writer today. He refused to answer any questions and asked "why did they send you here" and claims that he is not okay with being evaluated by psychiatrist at this time. He states that he "when I am ready to talk to you I will ask". He excused scenario writer from the room several times. He did not offer any past psychiatric history or any social history. 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 CHEMICAL DEPENDENCY HISTORY: Unable to obtain FAMILY PSYCHIATRIC/SUBSTANCE USE HISTORY: Unable to obtain SOCIAL HISTORY: Unable to obtain MENTAL STATUS EXAM: General Appearance: Patient appears to be standing, stated age is alert, fairly uncooperative and dismissive. Patient appears to have fair hygiene and grooming wearing hospital gown with fair eye contact. Behavior: Uncooperative, dismissive. Speech: Patient's speech is fluent and nonpressured. Demanding Mood/Affect: Unable to assess Suicidality/Homicidality: Unable to assess Perceptions: Unable to assess Though content/process: Patient was fairly concrete firm and demanding. Uncooperative. Memory and concentration: Unable to assess Judgment and insight: Unable to assess IMPRESSIONS: Adjustment disorder, rule out depressive disorder versus mood disorder PLAN: -Field Service Technician was unable to engage with patient for a interview, he was fairly dismissive and uncooperative. -Delirium precautions recommended with patient including - avoiding use of narcotics and CONVERSION WORKER sedatives, limit anticholinergic medications when possible, frequent re-orientation, minimize use of restraints, open window shades during the day and close them at night -Would recommend the following medication changes/additions: Can continue with current medications as prescribed - Informed nurse to document and monitor any changes in patient's mental status and if he is having any acute suicidal thoughts or bizarre/concerning behaviors to notify psychiatry for follow-up -Communicated plan to patient's nurse -consider 1:1 sitter if patients condition worsens or endorses SI/HI. -Psychiatry will sign off at this time -Please contact with any questions 01/24/25 14:21
--- NOTE | 2025-01-24 15:38 | P.PN ---
Subjective Progress Note Date: 01/24/25 Principal diagnosis: Reason for follow-up is recurrent UTI/question of rectovesical fistula Patient is a 79-year-old male with multiple comorbidity including recurrent UTI and concern for possible rectovesicular fistula presented to the hospital with cloudy urine significantly positive UA and concerning for symptomatic UTI. On today's evaluation that is 01/24/2025, patient has been afebrile, patient is breathing comfortably and is currently on room air, patient denies having any chest pain and cough, patient denies nausea vomiting or diarrhea and no abdominal pain, mention he did have improvement in the urine color this morning however subsequently did have some cloudy urine. Patient white count 6.83 creatinine is 2.3 cultures are pending Objective - Vital Signs Vital signs: Vital Signs Temp 98.7 F 01/24/25 07:13 Pulse 62 01/24/25 07:13 Resp 17 01/24/25 07:13 BP 123/41 01/24/25 07:13 Pulse Ox 95 01/24/25 07:13 FiO2 Intake & Output 01/23/25 01/24/25 01/24/25 18:59 06:59 18:59 Intake Total 1620 Balance 1620 Weight 77.111 kg 77.111 kg Intake: Oral 1620 Other: Voiding Method Urinal Urinal # Voids 4 # Bowel Movements 3 - Exam GENERAL DESCRIPTION: An elderly male lying in bed in no distress RESPIRATORY SYSTEM: Unlabored breathing , decreased breath sounds at bases HEART: S1 S2 regular rate and rhythm , ABDOMEN: Soft , no tenderness EXTREMITIES: No edema feet - Labs CBC & Chem 7: 01/24/25 05:12 01/24/25 05:12 Labs: Abnormal Lab Results - Last 24 Hours (Table) 01/23/25 01/23/25 01/23/25 Range/Units 13:41 13:41 16:28 RBC 3.26 L (4.40-5.60) 10*6/uL Hgb 11.1 L (13.0-17.0) g/dL Hct 33.4 L (39.6-50.0) % MCV 102.5 H (80.0-97.0) fL MCH 34.0 H (27.0-32.0) pg MCHC (32.0-37.0) g/dL RDW (11.5-14.5) % Chloride (96-109) mmol/L BUN 42 H (9-20) mg/dL Creatinine 2.57 H (0.66-1.25) mg/dL Est GFR (CKD-EPI) (>=60) Calcium (8.7-10.3) mg/dL Total Protein (6.2-8.2) g/dL Albumin (3.8-4.9) g/dL Urine Protein Trace H (Negative) Ur Leukocyte Esterase Large H (Negative) Urine RBC 8 H (0-5) /hpf Urine WBC >182 H (0-5) /hpf Urine WBC Clumps Many H (None) /hpf Urine Bacteria Many H (None) /hpf Urine Mucus Rare H (None) /hpf 01/24/25 01/24/25 Range/Units 05:12 05:12 RBC 2.91 L (4.40-5.60) 10*6/uL Hgb 9.8 L (13.0-17.0) g/dL Hct 30.7 L (39.6-50.0) % MCV 105.5 H (80.0-97.0) fL MCH 33.7 H (27.0-32.0) pg MCHC 31.9 L (32.0-37.0) g/dL RDW 14.7 H (11.5-14.5) % Chloride 112 H (96-109) mmol/L BUN 36.8 H (9-20) mg/dL Creatinine 2.3 H (0.66-1.25) mg/dL Est GFR (CKD-EPI) 28 L (>=60) Calcium 8.5 L (8.7-10.3) mg/dL Total Protein 5.3 L (6.2-8.2) g/dL Albumin 3.6 L (3.8-4.9) g/dL Urine Protein (Negative) Ur Leukocyte Esterase (Negative) Urine RBC (0-5) /hpf Urine WBC (0-5) /hpf Urine WBC Clumps (None) /hpf Urine Bacteria (None) /hpf Urine Mucus (None) /hpf Assessment and Plan (1) CKD (chronic kidney disease) Current Visit: Yes Status: Acute Code(s): N18.9 - CHRONIC KIDNEY DISEASE, UNSPECIFIED SNOMED Code(s): 861640099 (2) UTI (urinary tract infection) Current Visit: Yes Status: Acute Code(s): N39.0 - URINARY TRACT INFECTION, SITE NOT SPECIFIED SNOMED Code(s): 07840267 Plan: 1patient presenting the hospital with significant cloudy urine in this patient who did have multiple comorbidities and there was concern for possible rectovesical fistula with the patient was supposed to have Gastrografin enema study in the outpatient setting and did have an episode of sepsis secondary to Enterobacter in October 2024 2-patient with chronic kidney disease and high risk of nephrotoxicity 3-blood urine culture has been obtained which are currently pending 4-patient with treated with cefepime while waiting for culture to finalize we will obtain a Gastrografin enema to make sure no evidence of any rectovesical fistula responsible for recurrent UTI multiple question answered Dictation was produced using [employer] dictation software. please excuse any grammatical, word or spelling errors. Time with Patient: Less than 30
[2025-01-24] MEDS: THIAMINE 100 MG TAB PO SCH (16:52)
--- NOTE | 2025-01-25 03:15 | PN ---
PROGRESS NOTE DATE OF SERVICE: 01/24/2025 HISTORY OF PRESENT ILLNESS: This is an 79-year-old gentleman who was admitted with acute UTI, also had colovesical fistula possibly. The patient has been closely monitored at this time. The patient was also seen by Psychiatry overnight. Hemoglobin is at 9.8, creatinine is 2.3. PAST MEDICAL HISTORY: Reviewed. REVIEW OF SYSTEMS: 14-point review is negative except as mentioned earlier. CURRENT MEDICATIONS: Reviewed. PHYSICAL EXAMINATION: VITAL SIGNS: Pulse is 81, blood pressure n, respirations 18. CHEST: A few scattered rhonchi. ABDOMEN: Soft, nontender. NERVOUS SYSTEM: Nonfocal. LABORATORY DATA: Reviewed. ASSESSMENT: 1. 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 2. History of Enterobacter cloacae resistant UTI. 3. History of colon cancer with colostomy. 4. 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 5. History of metabolic acidosis. 6. On outpatient IV fluids. 7. Acute on chronic renal failure. 8. Multiple complex medical issues. RECOMMENDATIONS: Recommend to continue current psychiatry input appreciated. We will continue to monitor. Guarded prognosis. Further recommendations to follow. MMODL / IJN: [id number] / SAMANTHA
[2025-01-25 08:06] LABS: Basophils # (A) 0.05 X 10*3/uL (0.00-0.10); Basophils % (A) 0.8 %; Eosinophils # (A) 0.17 X 10*3/uL (0.04-0.35); Eosinophils % (A) 2.9 %; HCT 29.5 % (39.6-50.0); HGB 9.5 g/dL (13.0-17.0); Lymphocytes # (A) 1.27 X 10*3/uL (0.90-5.00); Lymphocytes % (A) 21.5 %; MCH 33.5 pg (27.0-32.0); MCHC 32.2 g/dL (32.0-37.0); MCV 103.9 FL (80.0-97.0); Mean Platelet Volume 10.9 FL (9.5-12.2); Monocytes # (A) 0.55 X 10*3/uL (0.20-1.00); Monocytes % (A) 9.3 %; NRBC Per 100 WBC 0 X 10*3/uL (0.00-0.01); Neutrophils # (A) 3.86 X 10*3/uL (1.80-7.70); Neutrophils % (A) 65.2 %; Platelet Count 138 X 10*3/uL (140-440); RBC 2.84 X 10*6/uL (4.40-5.60); RDW 14.7 % (11.5-14.5); WBC 5.92 X 10*3/uL (4.50-10.00)
[2025-01-25 08:36] LABS: ALT 12 U/L (10-49); AST 17 U/L (14-35); Albumin 3.5 g/dL (3.8-4.9); Albumin/Globulin Ratio 1.84 Ratio (1.60-3.17); Alkaline Phosphatase 79 U/L (41-126); BUN/Creat Ratio 15.85 Ratio (12.00-20.00); Blood Urea Nitrogen 31.7 mg/dL (9.0-27.0); Calcium 8.5 mg/dL (8.7-10.3); Carbon Dioxide 18.4 mmol/L (21.6-31.8); Chloride 115 mmol/L (96-109); Globulin 1.9 g/dL (1.6-3.3); Glucose 87 mg/dL (70-110); Potassium 4.6 mmol/L (3.5-5.5); Sodium 144 mmol/L (135-145); Total Bilirubin 0.2 mg/dL (0.3-1.2); Total Protein 5.4 g/dL (6.2-8.2)
[2025-01-25] MEDS: DARBEPOETIN ALFA 40 MCG/0.4 ML SYRINGE SQ SCH (11:46)
[2025-01-25] MEDS: FOLIC ACID 1 MG TAB PO SCH (11:53)
[2025-01-25] MEDS: MULTIVITAMINS, THERA 1 EACH TAB PO SCH (11:53)
--- NOTE | 2025-01-25 12:40 | FL ---
EXAMINATION TYPE: FL barium enema DATE OF EXAM: 01/25/2025 COMPARISON: CT abdomen and pelvis October 27, 2024 CLINICAL INDICATION: Male, 79 years old with history of rectovesical fistula; PHH, recurrent bladder infections with history of prior fistula. History of ileostomy and partial sigmoid colon resection. TECHNIQUE: A single contrast enema study is performed utilizing Isovue. A total of 80 seconds of f luoroscopic time was utilized during procedure and 26 images obtained. Total dose area product (DAP) in uGy*m?, mGy*cm? (or similar): n/p. FINDINGS: Sales Intern view of the abdomen shows right lower quadrant ostomy and scattered bilateral pelvic phleboliths. Enema is inserted. Contrast is filled to the level of hepatic flexure. Mucosal irregularity suggestin g multiple polyps in the descending and sigmoid colon are present. No obvious extravasation or fistul ous tract is identified. IMPRESSION: No fistula or sinus tract identified. Note is made a negative enema study does not entirely exclude possibility of above. [facility], , 01/25/2025 12:37 PM
--- NOTE | 2025-01-26 02:48 | PN ---
PROGRESS NOTE DATE OF SERVICE: 01/25/2025 SUBJECTIVE: This is an 79-year-old man who was admitted with recurrent UTI, had a barium enema today. No fistula or sinus tract was identified. CT scan of the abdomen done in October, showed cystitis with fat stranding around the urinary bladder and prostatomegaly also. No chest pain. No palpitations. No fever. OBJECTIVE: VITAL SIGNS: Pulse is 57, blood pressure 130/62, and respirations 18. CHEST: Clear to auscultation. ABDOMEN: Soft, nontender. NERVOUS SYSTEM: Nonfocal. LABORATORY DATA: Reviewed. UA shows urine culture, gram-negative bacilli. ASSESSMENT: 1. 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 The barium enema showed no active fistula at this time. 2. Gram-negative bacilli from the urine. 3. History of Enterobacter cloacae, resistant urinary tract infection. 4. History of colon cancer with colostomy. 5. 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 6. History of metabolic acidosis. 7. On outpatient IV fluids. 8. [id number] renal failure. RECOMMENDATIONS: Recommend to continue current management and treatment. Otherwise, continue empiric antibiotics. The creatinine is improved to 2 at this time. We will continue to monitor. Guarded prognosis. Further recommendation is to follow. MMODL / IJN: [id number] /
[2025-01-26 10:00] LABS: HCT 29.6 % (39.6-50.0); HGB 9.4 g/dL (13.0-17.0); MCH 33.3 pg (27.0-32.0); MCHC 31.8 g/dL (32.0-37.0); Mean Platelet Volume 10.8 FL (9.5-12.2); NRBC Per 100 WBC 0 X 10*3/uL (0.00-0.01); Platelet Count 133 X 10*3/uL (140-440); RBC 2.82 X 10*6/uL (4.40-5.60); RDW 14.7 % (11.5-14.5); WBC 6.37 X 10*3/uL (4.50-10.00)
[2025-01-26 10:01] LABS: Basophils # (A) 0.04 X 10*3/uL (0.00-0.10); Basophils % (A) 0.6 %; Eosinophils # (A) 0.22 X 10*3/uL (0.04-0.35); Eosinophils % (A) 3.5 %; Lymphocytes # (A) 1.18 X 10*3/uL (0.90-5.00); Lymphocytes % (A) 18.5 %; Monocytes # (A) 0.61 X 10*3/uL (0.20-1.00); Monocytes % (A) 9.6 %; Neutrophils % (A) 67.5 %
[2025-01-26 12:49] LABS: BUN/Creat Ratio 15.68 Ratio (12.00-20.00); Blood Urea Nitrogen 29.8 mg/dL (9.0-27.0); Calcium 8.3 mg/dL (8.7-10.3); Chloride 114 mmol/L (96-109); Glucose 90 mg/dL (70-110); Potassium 4.7 mmol/L (3.5-5.5); Sodium 143 mmol/L (135-145)
--- NOTE | 2025-01-26 13:47 | P.PN ---
Subjective Progress Note Date: 01/26/25 Patient seen in follow-up for KONRAD on CKD. Feeling OK overall. Wants to continue IVF as he gets dehydrated easily with ostomy. Patient is awake, comfortable, no acute distress Alert oriented x 3 Examination of the heart S1 and S2 Examination of the lungs bilateral breath sounds are heard Abdomen is soft nontender Examination lower extremity shows no evidence of edema Objective - Vital Signs Vital signs: Vital Signs Temp 98.2 F 01/26/25 07:07 Pulse 60 01/26/25 07:07 Resp 17 01/26/25 07:07 BP 128/57 01/26/25 07:07 Pulse Ox 96 01/26/25 07:07 FiO2 Intake & Output 01/25/25 01/26/25 01/26/25 18:59 06:59 18:59 Intake Total 2100 Balance 2100 Intake: Oral 2100 Other: Voiding Method Urinal Urinal # Voids 3 2 - Labs CBC & Chem 7: 01/26/25 02:51 01/26/25 02:51 Labs: Abnormal Lab Results - Last 24 Hours (Table) 01/26/25 Range/Units 02:51 RBC 2.82 L (4.40-5.60) X 10*6/uL Hgb 9.4 L (13.0-17.0) g/dL Hct 29.6 L (39.6-50.0) % MCV 105.0 H (80.0-97.0) FL MCH 33.3 H (27.0-32.0) pg MCHC 31.8 L (32.0-37.0) g/dL RDW 14.7 H (11.5-14.5) % Plt Count 133 L (140-440) X 10*3/uL Microbiology - Last 24 Hours (Table) 01/23/25 16:28 Urine Culture - Final Urine,Voided Enterobacter cloacae 01/23/25 13:41 Blood Culture - Preliminary Blood Assessment and Plan Assessment: 1. Acute kidney injury, mostly related to volume depletion, improving with IV hydration 2. Chronic kidney disease stage IV with baseline creatinine around 2 milligrams per deciliter etiology is previous episodes of acute kidney injury and chronic use of NSAIDs and high doses of acetaminophen 3. UTI with urine culture recurrent enterobacter 4. Anemia of chronic disease, no active bleeding noted Plan: Continue with antibiotics Continue IVF 75cc/hr Barium enema did not shows any concern for fistula Add aranesp for anemia. Patient needs to follow-up with surgery regarding possible colovesical fistula
[2025-01-26] MEDS ORDERED: SODIUM CHLORIDE 0.9% 500 ML 500 ML IV SCH (14:00)
--- NOTE | 2025-01-26 15:24 | P.PN ---
Subjective Progress Note Date: 01/25/25 Principal diagnosis: Reason for follow-up is recurrent UTI/question of rectovesical fistula Patient is a 79-year-old male with multiple comorbidity including recurrent UTI and concern for possible rectovesicular fistula presented to the hospital with cloudy urine significantly positive UA and concerning for symptomatic UTI. On today's evaluation that is 01/25/2025, Patient is afebrile this morning patient denies having any chest pain shortness of breath or cough, the patient is currently on room air, patient denies any abdominal pain no diarrhea no nausea no vomiting Patient white count is 5.92, creatinine is 2.0 barium enema did not show any evidence of fistula Objective - Vital Signs Vital signs: Vital Signs Temp 97.5 F L 01/25/25 14:09 Pulse 57 L 01/25/25 14:09 Resp 18 01/25/25 14:09 BP 130/62 01/25/25 14:09 Pulse Ox 96 01/25/25 14:09 FiO2 Intake & Output 01/24/25 01/25/25 01/25/25 18:59 06:59 18:59 Intake Total 240 480 Balance 240 480 Intake: Oral 240 480 Other: Voiding Method Urinal Urinal Urinal # Voids 2 1 # Bowel Movements 3 - Exam GENERAL DESCRIPTION: An elderly male lying in bed in no distress RESPIRATORY SYSTEM: Unlabored breathing , decreased breath sounds at bases HEART: S1 S2 regular rate and rhythm , ABDOMEN: Soft , no tenderness EXTREMITIES: No edema feet - Labs CBC & Chem 7: 01/26/25 02:51 01/26/25 02:51 Labs: Abnormal Lab Results - Last 24 Hours (Table) 01/25/25 01/25/25 Range/Units 04:38 04:38 RBC 2.84 L (4.40-5.60) X 10*6/uL Hgb 9.5 L (13.0-17.0) g/dL Hct 29.5 L (39.6-50.0) % MCV 103.9 H (80.0-97.0) FL MCH 33.5 H (27.0-32.0) pg RDW 14.7 H (11.5-14.5) % Plt Count 138 L (140-440) X 10*3/uL Chloride 115 H (96-109) mmol/L Carbon Dioxide 18.4 L (21.6-31.8) mmol/L BUN 31.7 H (9.0-27.0) mg/dL Creatinine 2.0 H (0.6-1.5) mg/dL Est GFR (CKD-EPI) 33 L (>=60) Calcium 8.5 L (8.7-10.3) mg/dL Total Bilirubin 0.2 L (0.3-1.2) mg/dL Total Protein 5.4 L (6.2-8.2) g/dL Albumin 3.5 L (3.8-4.9) g/dL Microbiology - Last 24 Hours (Table) 01/23/25 16:28 Urine Culture - Preliminary Urine,Voided Gram Neg Bacilli 01/23/25 13:41 Blood Culture - Preliminary Blood Assessment and Plan (1) CKD (chronic kidney disease) Current Visit: Yes Status: Acute Code(s): N18.9 - CHRONIC KIDNEY DISEASE, UNSPECIFIED SNOMED Code(s): 935364566 (2) UTI (urinary tract infection) Current Visit: Yes Status: Acute Code(s): N39.0 - URINARY TRACT INFECTION, SITE NOT SPECIFIED SNOMED Code(s): 31589891 Plan: 1patient presenting the hospital with significant cloudy urine in this patient who did have multiple comorbidities and there was concern for possible rectovesi nirav fistula with the patient was supposed to have Gastrografin enema study in the outpatient setting and did have an episode of sepsis secondary to Enterobacter in October 2024 2-patient with chronic kidney disease and high risk of nephrotoxicity 3-blood culture have been negative, urine culture growing gram-negative with sensitivity pending, did have a barium enema did not show evidence of recto vesical or colovesical fistula 4-patient with treated with cefepime while waiting for culture to finalize, multiple question concern answered Dictation was produced using [employer] dictation software. please excuse any grammatical, word or spelling errors. Time with Patient: Less than 30
--- NOTE | 2025-01-26 15:25 | P.PN ---
Subjective Progress Note Date: 01/26/25 Principal diagnosis: Reason for follow-up is recurrent UTI/question of rectovesical fistula Patient is a 79-year-old male with multiple comorbidity including recurrent UTI and concern for possible rectovesicular fistula presented to the hospital with cloudy urine significantly positive UA and concerning for symptomatic UTI. On today's evaluation that is 01/26/2025, the patient continues to be afebrile the patient is breathing comfortably no chest pain shortness of breath no cough no nausea vomiting no abdominal pain or diarrhea urinary symptom improved. Patient white count 6.37, creatinine is 1.9, urine is growing Enterobacter sensitive to cefepime and Cipro Objective - Vital Signs Vital signs: Vital Signs Temp 97.3 F L 01/26/25 12:48 Pulse 57 L 01/26/25 12:48 Resp 19 01/26/25 12:48 BP 134/65 01/26/25 12:48 Pulse Ox 98 01/26/25 12:48 FiO2 Intake & Output 01/25/25 01/26/25 01/26/25 18:59 06:59 18:59 Intake Total 2100 Balance 2100 Intake: Oral 2100 Other: Voiding Method Urinal Urinal # Voids 3 2 - Exam GENERAL DESCRIPTION: An elderly male lying in bed in no distress RESPIRATORY SYSTEM: Unlabored breathing , decreased breath sounds at bases HEART: S1 S2 regular rate and rhythm , ABDOMEN: Soft , no tenderness EXTREMITIES: No edema feet - Labs CBC & Chem 7: 01/26/25 02:51 01/26/25 02:51 Labs: Abnormal Lab Results - Last 24 Hours (Table) 01/26/25 01/26/25 Range/Units 02:51 02:51 RBC 2.82 L (4.40-5.60) X 10*6/uL Hgb 9.4 L (13.0-17.0) g/dL Hct 29.6 L (39.6-50.0) % MCV 105.0 H (80.0-97.0) FL MCH 33.3 H (27.0-32.0) pg MCHC 31.8 L (32.0-37.0) g/dL RDW 14.7 H (11.5-14.5) % Plt Count 133 L (140-440) X 10*3/uL Chloride 114 H (96-109) mmol/L Carbon Dioxide 20.0 L (21.6-31.8) mmol/L BUN 29.8 H (9.0-27.0) mg/dL Creatinine 1.9 H (0.6-1.5) mg/dL Est GFR (CKD-EPI) 35 L (>=60) Calcium 8.3 L (8.7-10.3) mg/dL Microbiology - Last 24 Hours (Table) 01/23/25 16:28 Urine Culture - Final Urine,Voided Enterobacter cloacae 01/23/25 13:41 Blood Culture - Preliminary Blood Assessment and Plan (1) CKD (chronic kidney disease) Current Visit: Yes Status: Acute Code(s): N18.9 - CHRONIC KIDNEY DISEASE, UNSPECIFIED SNOMED Code(s): 325147334 (2) UTI (urinary tract infection) Current Visit: Yes Status: Acute Code(s): N39.0 - URINARY TRACT INFECTION, S ITE NOT SPECIFIED SNOMED Code(s): 44445447 Plan: 1patient presenting the hospital with significant cloudy urine in this patient who did have multiple comorbidities and there was concern for possible rectovesical fistula with the patient was supposed to have Gastrografin enema study in the outpatient setting and did have an episode of sepsis secondary to Enterobacter in October 2024 2-patient with chronic kidney disease and high risk of nephrotoxicity 3-blood culture have been negative, urine culture growing Enterobacter that is sensitive to cefepime and Cipro, did have a barium enema did not show evidence of rectovesical or colovesical fistula 4-patient with treated with cefepime while inpatient and monitor clinical course closely, multiple question concern answered again Dictation was produced using [employer] dictation software. please excuse any grammatical, word or spelling errors. Time with Patient: Less than 30
[2025-01-26] MEDS: SODIUM CHLORIDE 0.9% 500 ML 1,000 ML IV SCH (16:35)
[2025-01-26] MEDS: SODIUM CHLORIDE 0.9% 1,000 ML IV SCH (16:42)
--- NOTE | 2025-01-26 22:25 | PN ---
PROGRESS NOTE DATE OF SERVICE: 01/26/2025 SUBJECTIVE: This is an 79-year-old gentleman, who is admitted with recurrent UTI with Enterobacter cloacae, had the same sensitivities. Barium enema showed no evidence of any fistula obviously and the patient is on IV antibiotics. PHYSICAL EXAMINATION: VITAL SIGNS: Pulse is 60, blood pressure 128/57, and respirations 17. CHEST: Clear to auscultation. CARDIOVASCULAR: S1 and S2. ABDOMEN: Soft. Ileostomy present. LABORATORY DATA: Noted. Creatinine is 1.9. ASSESSMENT: 1. 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 Barium enema showed no active fistula. 2. History of Enterobacter cloacae resistant urinary tract infection. 3. History of colon cancer with colostomy. 4. 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 5. History of metabolic acidosis. 6. On outpatient intravenous fluids. 7. Acute on chronic kidney failure. RECOMMENDATIONS: Recommended to continue current management and treatment. Continue with IV fluids. Continue with antibiotics. Repeat labs. The patient might require further evaluation including urology evaluation as an outpatient. Further recommendations to follow. MMODL / IJN: [id number] /
[2025-01-27 09:27] LABS: Basophils # (A) 0.05 X 10*3/uL (0.00-0.10); Basophils % (A) 0.9 %; Eosinophils # (A) 0.24 X 10*3/uL (0.04-0.35); Eosinophils % (A) 4.1 %; HCT 29.9 % (39.6-50.0); HGB 10.2 g/dL (13.0-17.0); Lymphocytes # (A) 1.15 X 10*3/uL (0.90-5.00); Lymphocytes % (A) 19.7 %; MCH 35.2 pg (27.0-32.0); MCHC 34.1 g/dL (32.0-37.0); MCV 103.1 FL (80.0-97.0); Mean Platelet Volume 10.9 FL (9.5-12.2); Monocytes # (A) 0.59 X 10*3/uL (0.20-1.00); Monocytes % (A) 10.1 %; NRBC Per 100 WBC 0 X 10*3/uL (0.00-0.01); Neutrophils % (A) 64.9 %; Platelet Count 143 X 10*3/uL (140-440); RDW 14.5 % (11.5-14.5); WBC 5.85 X 10*3/uL (4.50-10.00)
[2025-01-27 09:52] LABS: BUN/Creat Ratio 15.53 Ratio (12.00-20.00); Blood Urea Nitrogen 29.5 mg/dL (9.0-27.0); Calcium 8.3 mg/dL (8.7-10.3); Carbon Dioxide 17.7 mmol/L (21.6-31.8); Chloride 114 mmol/L (96-109); Glucose 87 mg/dL (70-110); Potassium 4.7 mmol/L (3.5-5.5); Sodium 142 mmol/L (135-145)
--- NOTE | 2025-01-27 12:15 | P.PN ---
Subjective Progress Note Date: 01/27/25 Patient seen in follow-up for KONRAD on CKD. Feeling OK overall. No new complaints. Patient is awake, comfortable, no acute distress Alert oriented x 3 Examination of the heart S1 and S2 Examination of the lungs bilateral breath sounds are heard Abdomen is soft nontender Examination lower extremity shows no evidence of edema Objective - Vital Signs Vital signs: Vital Signs Temp 98.6 F 01/27/25 07:32 Pulse 59 L 01/27/25 07:32 Resp 17 01/27/25 07:32 BP 122/59 01/27/25 07:32 Pulse Ox 95 01/27/25 07:32 FiO2 Intake & Output 01/26/25 01/27/25 01/27/25 18:59 06:59 18:59 Output Total 600 Balance -600 Output: Urine 600 Other: Voiding Method Urinal # Voids 5 1 # Bowel Movements 1 - Labs CBC & Chem 7: 01/27/25 02:24 01/27/25 02:24 Labs: Abnormal Lab Results - Last 24 Hours (Table) 01/26/25 01/27/25 01/27/25 Range/Units 02:51 02:24 02:24 RBC 2.90 L (4.40-5.60) X 10*6/uL Hgb 10.2 L (13.0-17.0) g/dL Hct 29.9 L (39.6-50.0) % MCV 103.1 H (80.0-97.0) FL MCH 35.2 H (27.0-32.0) pg Chloride 114 H 114 H (96-109) mmol/L Carbon Dioxide 20.0 L 17.7 L (21.6-31.8) mmol/L BUN 29.8 H 29.5 H (9.0-27.0) mg/dL Creatinine 1.9 H 1.9 H (0.6-1.5) mg/dL Est GFR (CKD-EPI) 35 L 35 L (>=60) Calcium 8.3 L 8.3 L (8.7-10.3) mg/dL Microbiology - Last 24 Hours (Table) 01/23/25 13:41 Blood Culture - Preliminary Blood Assessment and Plan Assessment: 1. Acute kidney injury, mostly related to volume depletion, improving with IV hydration 2. Chronic kidney disease stage IV with baseline creatinine around 2.0 etiology is previous episodes of acute kidney injury and chronic use of NSAIDs and high doses of acetaminophen 3. UTI with urine culture recurrent enterobacter 4. Anemia of chronic disease, no active bleeding noted Plan: Continue with antibiotics Continue IVF 75cc/hr Barium enema did not shows any concern for colovesical fistula Add aranesp for anemia.
--- NOTE | 2025-01-27 17:06 | P.PN ---
Subjective Progress Note Date: 01/27/25 Principal diagnosis: Reason for follow-up is recurrent UTI/question of rectovesical fistula Patient is a 79-year-old male with multiple comorbidity including recurrent UTI and concern for possible rectovesicular fistula presented to the hospital with cloudy urine significantly positive UA and concerning for symptomatic UTI. On today's evaluation that is 01/27/2025,the patient remains to be afebrile, patient is on room air not requiring supplemental oxygen and denies any shortness of breath no chest pain or cough.Patient denies having any nausea or vomiting, no abdominal pain and no diarrhea has been reported. Patient did have a white count of 5.85 creatinine is 1.9 urine with Enterobacter sensitive to Cipro cefepime Objective - Vital Signs Vital signs: Vital Signs Temp 97.9 F 01/27/25 13:57 Pulse 69 01/27/25 13:57 Resp 18 01/27/25 13:57 BP 128/53 01/27/25 13:57 Pulse Ox 96 01/27/25 13:57 FiO2 Intake & Output 01/26/25 01/27/25 01/27/25 18:59 06:59 18:59 Output Total 600 Balance -600 Output: Urine 600 Other: Voiding Method Urinal # Voids 5 1 # Bowel Movements 1 - Exam GENERAL DESCRIPTION: An elderly male lying in bed in no distress RESPIRATORY SYSTEM: Unlabored breathing , decreased breath sounds at bases HEART: S1 S2 regular rate and rhythm , ABDOMEN: Soft , no tenderness EXTREMITIES: No edema feet - Labs CBC & Chem 7: 01/27/25 02:24 01/27/25 02:24 Labs: Abnormal Lab Results - Last 24 Hours (Table) 01/27/25 01/27/25 Range/Units 02:24 02:24 RBC 2.90 L (4.40-5.60) X 10*6/uL Hgb 10.2 L (13.0-17.0) g/dL Hct 29.9 L (39.6-50.0) % MCV 103.1 H (80.0-97.0) FL MCH 35.2 H (27.0-32.0) pg Chloride 114 H (96-109) mmol/L Carbon Dioxide 17.7 L (21.6-31.8) mmol/L BUN 29.5 H (9.0-27.0) mg/dL Creatinine 1.9 H (0.6-1.5) mg/dL Est GFR (CKD-EPI) 35 L (>=60) Calcium 8.3 L (8.7-10.3) mg/dL Microbiology - Last 24 Hours (Table) 01/23/25 13:41 Blood Culture - Preliminary Blood Assessment and Plan (1) CKD (chronic kidney disease) Current Visit: Yes Status: Acute Code(s): N18.9 - CHRONIC KIDNEY DISEASE, UNSPECIFIED SNOMED Code(s): 160908436 (2) UTI (urinary tract infection) Current Visit: Yes Status: Acute Code(s): N39.0 - URINARY TRACT INFECTION, SITE NOT SPECIFIED SNOMED Code(s): 56031131 Plan: 1patient presenting the hospital with significant cloudy urine in this patient who did have multiple comorbidities and there was concern for possible rectovesical fistula with the patient was supposed to have Gastrografin enema study in the outpatient setting and did have an episode of sepsis secondary to Enterobacter in October 2024 2-patient with chronic kidney disease and high risk of nephrotoxicity 3-blood culture have been negative, urine culture growing Enterobacter that is sensitive to cefepime and Cipro, did have a barium enema did not show evidence of rectovesical or colovesical fistula 4-patient reluctant to take oral Cipro Bactrim DS not a good choice with his kidney function will recommend to finish therapy 70 course of oral cefepime to be the patient agreed prescription left for the director case management Dictation was produced using [employer] dictation software. please excuse any grammatical, word or spelling errors. Time with Patient: Less than 30
[2025-01-28 02:46] LABS: Basophils # (A) 0.05 10*3/uL (0.00-0.10); Basophils % (A) 0.7 %; Eosinophils # (A) 0.25 10*3/uL (0.04-0.35); Eosinophils % (A) 3.7 %; HCT 29.5 % (39.6-50.0); HGB 9.8 g/dL (13.0-17.0); Lymphocytes # (A) 1.05 10*3/uL (0.90-5.00); Lymphocytes % (A) 15.6 %; MCH 33.8 pg (27.0-32.0); MCHC 33.2 g/dL (32.0-37.0); MCV 101.7 fL (80.0-97.0); Mean Platelet Volume 10.1 fL (9.5-12.2); Monocytes # (A) 0.63 10*3/uL (0.20-1.00); Monocytes % (A) 9.4 %; Neutrophils # (A) 4.71 10*3/uL (1.80-7.70); Neutrophils % (A) 70.3 %; Platelet Count 129 10*3/uL (140-440); RDW 14.3 % (11.5-14.5); WBC 6.71 10*3/uL (4.50-10.00)
[2025-01-28 03:47] LABS: African American GFR (CKD) 35 (>60 ml/min/1.73 sqM); Anion Gap 10 mmol/L; Blood Urea Nitrogen 28 mg/dL (9-20); Carbon Dioxide 18 mmol/L (22-30); Chloride 113 mmol/L (98-107); Glucose 93 mg/dL (74-99); Non-African American GFR(CKD) 30 (>60 ml/min/1.73 sqM); Potassium 4.4 mmol/L (3.5-5.1); Sodium 141 mmol/L (137-145)
--- NOTE | 2025-01-28 04:21 | PN ---
PROGRESS NOTE DATE OF SERVICE: 01/27/2025 SUBJECTIVE: This is an 79-year-old gentleman who was admitted with acute UTI with cystitis, also enterobacter cloacae grown from the culture. No chest pain. No palpitation. OBJECTIVE: VITAL SIGNS: Pulse is 69, blood pressure 128/52, respirations 18. CHEST: Clear to auscultation. CARDIOVASCULAR: S1, S2. ABDOMEN: Soft. LABORATORY DATA: Hemoglobin 10.2. ASSESSMENT: 1. 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 Barium enema showed no active fistula. 2. 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 3. History of colon cancer with colostomy. 4. 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 5. History of metabolic acidosis. 6. On outpatient IV fluids. 7. [id number] kidney failure. RECOMMENDATIONS: Recommend to continue current management and continue symptomatic treatment. Recommend repeat labs and continue the antibiotics. Possible discharge within the next 24 hours. MMODL / IJN: [id number] /
[2025-01-28 09:41] VITALS: RESP 16
[2025-01-28] MEDS: ALTEPLASE 2 MG VIAL (CATHFLO) IV STA (10:48)
--- NOTE | 2025-01-28 11:06 | P.PN ---
Subjective Patient is seen in follow-up for acute kidney injury on chronic kidney disease. GFR at baseline. Has been voiding. No active complaints. Vital signs are stable. General: No acute distress. HEENT: Head exam is unremarkable. LUNGS: No audible rhonchi or wheezes. HEART: Rate and Rhythm are regular. ABDOMEN: Nontender. Colostomy noted. EXTREMITITES: No edema. Objective - Vital Signs Vital signs: Vital Signs Temp 97.6 F 01/28/25 07:58 Pulse 62 01/28/25 07:58 Resp 16 01/28/25 07:58 BP 130/53 01/28/25 07:58 Pulse Ox 99 01/28/25 07:58 FiO2 Intake & Output 01/27/25 01/28/25 01/28/25 18:59 06:59 18:59 Output Total 1200 Balance -1200 Output: Urine 1200 Other: Voiding Method Urinal Urinal # Voids 1 # Bowel Movements 3 - Labs CBC & Chem 7: 01/28/25 02:22 01/28/25 02:22 Labs: Abnormal Lab Results - Last 24 Hours (Table) 01/28/25 01/28/25 Range/Units 02:22 02:22 RBC 2.90 L (4.40-5.60) 10*6/uL Hgb 9.8 L (13.0-17.0) g/dL Hct 29.5 L (39.6-50.0) % MCV 101.7 H (80.0-97.0) fL MCH 33.8 H (27.0-32.0) pg Plt Count 129 L (140-440) 10*3/uL Chloride 113 H (98-107) mmol/L Carbon Dioxide 18 L (22-30) mmol/L BUN 28 H (9-20) mg/dL Creatinine 2.00 H (0.66-1.25) mg/dL Assessment and Plan Plan: Assessment: 1. Acute kidney injury secondary to ATN secondary to severe sepsis. Improved. 2. Chronic kidney disease stage IV with baseline creatinine 2-2.5. 3. Metabolic acidosis secondary to acute kidney injury and GI losses. On oral bicarb. Receives IV bicarb 3 times a week outpatient. 4. Enterobacter UTI on antibiotics. ID following. 5. Anemia of chronic kidney disease maintained on Aranesp. Plan: Maintain IV fluids for now. Encourage oral intake. Avoid nephrotoxins. Follow-up outpatient 1 to 2 weeks postdischarge.
--- NOTE | 2025-01-28 11:15 | P.GSCN ---
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 Patient admitted with acute urinary tract infection. He has a Port-A-Cath placed by Dr. Solis in November of this year for long-term IV infusions. Apparently during this hospitalization Port-A-Cath has been accessed however nursing was's having some difficulty with infusions on IV pump where it was saying it was occluded. Reportedly they had difficulty flushing and getting a flash return. Needle was removed and vascular surgery was consulted. Apparently there was also some concerns that there was some redness surrounding the Port-A-Cath however patient states that he does not usually see a and is unsure if this is something new, there is tenderness at the port which has been present since it was placed. He has been afebrile. Peripheral line was established and vascular surgery was consulted for further evaluation. Review of Systems A 14 point review systems was completed all pertinent positives and negatives as stated in the HPI. 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 Past Anesthesia/Blood Transfusion Reactions: No Reported Reaction Past Psychological History: No Psychological Hx Reported Smoking Status: Former smoker Past Alcohol Use History: None Reported Past Drug Use History: None Reported - Past Family History Mother Additional Family Medical History / Comment(s): mom liver issues Medications and Allergies Home Medications Medication Instructions Recorded Confirmed Type Pregabalin 25 mg PO TID 10/26/24 01/23/25 History allopurinoL 300 mg PO DAILY 10/26/24 01/23/25 History diazePAM [Valium] 5 mg PO HS 10/26/24 01/23/25 History Acetaminophen [Tylenol 8 Hour] 1,300 mg PO TID 10/27/24 01/23/25 History Sodium Bicarbonate Tab 1,300 mg PO TID 10/27/24 01/23/25 History Sodium Zirconium Cyclosilicate 10 gm PO DAILY 2 Days #2 packet 11/05/24 01/23/25 Rx [Lokelma] Cyanocobalamin/Cobamamide [Vitamin 2 tab SL DAILY 01/23/25 01/23/25 History B-12 5,000 Mcg Tab Sl] Darbepoetin Arias [Aranesp] 40 mcg SQ FR 01/23/25 01/23/25 History Allergies Allergy/AdvReac Type Severity Reaction Status Date / Time No Known Allergies Allergy Verified 01/23/25 18:29 Surgical - Exam Vital Signs Temp Pulse Resp BP Pulse Ox 97.9 F 63 20 113/57 96 01/23/25 12:32 01/23/25 12:32 01/23/25 12:32 01/23/25 12:32 01/23/25 12:32 General appearance: The patient is alert, oriented, appears in no acute distress. HET: Head is normocephalic and atraumatic. Pupils are equal and reactive. Neck: Supple. Chest: Right upper chest wall with Port-A-Cath, some mild surrounding erythema almost rash-like may be secondary to bandage. Heart: Regular. Lungs: Equal expansion, normal respiratory effort. Abdomen: Soft, nontender, nondistended. Extremities: Normal skin color and turgor. Neurological: Alert and oriented. Results - Labs 01/28/25 02:22 01/28/25 02:22 Abnormal Lab Results - Last 24 Hours (Table) 01/27/25 01/27/25 01/28/25 Range/Units 02:24 02:24 02:22 RBC 2.90 L 2.90 L (4.40-5.60) X 10*6/uL Hgb 10.2 L 9.8 L (13.0-17.0) g/dL Hct 29.9 L 29.5 L (39.6-50.0) % MCV 103.1 H 101.7 H (80.0-97.0) FL MCH 35.2 H 33.8 H (27.0-32.0) pg Plt Count 129 L (140-440) 10*3/uL Chloride 114 H (96-109) mmol/L Carbon Dioxide 17.7 L (21.6-31.8) mmol/L BUN 29.5 H (9.0-27.0) mg/dL Creatinine 1.9 H (0.6-1.5) mg/dL Est GFR (CKD-EPI) 35 L (>=60) Calcium 8.3 L (8.7-10.3) mg/dL 01/28/25 Range/Units 02:22 RBC (4.40-5.60) X 10*6/uL Hgb (13.0-17.0) g/dL Hct (39.6-50.0) % MCV (80.0-97.0) FL MCH (27.0-32.0) pg Plt Count (140-440) 10*3/uL Chloride 113 H (96-109) mmol/L Carbon Dioxide 18 L (21.6-31.8) mmol/L BUN 28 H (9.0-27.0) mg/dL Creatinine 2.00 H (0.6-1.5) mg/dL Est GFR (CKD-EPI) (>=60) Calcium (8.7-10.3) mg/dL Diabetes panel 01/27/25 01/28/25 Range/Units 02:24 02:22 Sodium 142 141 (135-145) mmol/L Potassium 4.7 4.4 (3.5-5.5) mmol/L Chloride 114 H 113 H (96-109) mmol/L Carbon Dioxide 17.7 L 18 L (21.6-31.8) mmol/L BUN 29.5 H 28 H (9.0-27.0) mg/dL Creatinine 1.9 H 2.00 H (0.6-1.5) mg/dL Glucose 87 93 (70-110) mg/dL Calcium 8.3 L 9.0 (8.7-10.3) mg/dL Calcium panel 01/27/25 01/28/25 Range/Units 02:24 02:22 Calcium 8.3 L 9.0 (8.7-10.3) mg/dL Pituitary panel 01/27/25 01/28/25 Range/Units 02:24 02:22 Sodium 142 141 (135-145) mmol/L Potassium 4.7 4.4 (3.5-5.5) mmol/L Chloride 114 H 113 H (96-109) mmol/L Carbon Dioxide 17.7 L 18 L (21.6-31.8) mmol/L BUN 29.5 H 28 H (9.0-27.0) mg/dL Creatinine 1.9 H 2.00 H (0.6-1.5) mg/dL Glucose 87 93 (70-110) mg/dL Calcium 8.3 L 9.0 (8.7-10.3) mg/dL Adrenal panel 01/27/25 01/28/25 Range/Units 02:24 02:22 Sodium 142 141 (135-145) mmol/L Potassium 4.7 4.4 (3.5-5.5) mmol/L Chloride 114 H 113 H (96-109) mmol/L Carbon Dioxide 17.7 L 18 L (21.6-31.8) mmol/L BUN 29.5 H 28 H (9.0-27.0) mg/dL Creatinine 1.9 H 2.00 H (0.6-1.5) mg/dL Glucose 87 93 (70-110) mg/dL Calcium 8.3 L 9.0 (8.7-10.3) mg/dL Assessment and Plan Assessment: 1. Malfunctioning Port-A-Cath status post tPA 2. Need for long-term IV hydration and IV antibiotics 3. Urinary tract infection Plan: Port-A-Cath was accessed by sterile technique with needle, good flash on return with pullback and no difficulty with flushing. 2 mg tPA infused, dressing applied. May continue use of Port-A-Cath. Thank you for this consultation, we will sign off at this time. The impression and plan of care has been dictated as directed. I performed a history and examination of this patient, discussed the same with the dictator. I agree with the dictator's note ,documented as a scribe. Any additional findings or plans will be noted.
[2025-01-28] MEDS: CEFEPIME 1 GM in SODIUM CHLORIDE 0.9% 50 ML IVPB ONE (12:45)
[2025-01-28 15:18] VITALS: BP 119/45; PULSE 53; TEMP 97.5
--- NOTE | 2025-01-28 17:21 | P.PN ---
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 On today's evaluation that is 01/28/2025, the patient continues to be afebrile, the patient is on room air and breathing comfortably, the Pt denies having any chest pain or cough, the patient denies having any abdominal pain no vomiting or any diarrhea. Patient did have a white count of 6.71, creatinine is 2.0 Objective - Vital Signs Vital signs: Vital Signs Temp 97.6 F 01/28/25 07:58 Pulse 62 01/28/25 07:58 Resp 16 01/28/25 07:58 BP 130/53 01/28/25 07:58 Pulse Ox 99 01/28/25 07:58 FiO2 Intake & Output 01/27/25 01/28/25 01/28/25 18:59 06:59 18:59 Output Total 1200 Balance -1200 Output: Urine 1200 Other: Voiding Method Urinal Urinal # Voids 1 # Bowel Movements 3 - Exam GENERAL DESCRIPTION: An elderly male lying in bed in no distress RESPIRATORY SYSTEM: Unlabored breathing , decreased breath sounds at bases HEART: S1 S2 regular rate and rhythm , ABDOMEN: Soft , no tenderness EXTREMITIES: No edema feet - Labs CBC & Chem 7: 01/28/25 02:22 01/28/25 02:22 Labs: Abnormal Lab Results - Last 24 Hours (Table) 01/28/25 01/28/25 Range/Units 02:22 02:22 RBC 2.90 L (4.40-5.60) 10*6/uL Hgb 9.8 L (13.0-17.0) g/dL Hct 29.5 L (39.6-50.0) % MCV 101.7 H (80.0-97.0) fL MCH 33.8 H (27.0-32.0) pg Plt Count 129 L (140-440) 10*3/uL Chloride 113 H (98-107) mmol/L Carbon Dioxide 18 L (22-30) mmol/L BUN 28 H (9-20) mg/dL Creatinine 2.00 H (0.66-1.25) mg/dL Assessment and Plan (1) CKD (chronic kidney disease) Status: Acute Code(s): N18.9 - CHRONIC KIDNEY DISEASE, UNSPECIFIED SNOMED Code(s): 247784799 (2) UTI (urinary tract infection) Status: Acute Code(s): N39.0 - URINARY TRACT INFECTION, SITE NOT SPECIFIED SNOMED Code(s): 45178577 Plan: 1patient presenting the hospital with significant cloudy urine in this patient who did have multiple comorbidities and there was concern for possible rectovesical fistula with the patient was supposed to have Gastrografin enema study in the outpatient setting and did have an episode of sepsis secondary to Enterobacter in October 2024 2-patient with chronic kidney disease and high risk of nephrotoxicity 3-blood culture have been negative, urine culture growing Enterobacter that is sensitive to cefepime and Cipro, did have a barium enema did not show evidence of rectovesical or colovesical fistula 4-7-day course of oral cefepime has been arranged for the patient on discharge he did have multiple questions and concerns those were answered Dictation was produced using [employer] software. please excuse any grammatical, word or spelling errors.
--- NOTE | 2025-01-30 09:34 | CDI ---
Documentation Clarification Form Date: 01/30/2025 09:22:29 AM From: Yakelin Workman Phone: Admit Date: 01/23/2025 04:57:00 PM Patient Name: Dio Cleaning Visit Number: [id number] Discharge Date: 01/28/2025 05:01:00 PM ATTENTION: The Clinical Documentation Specialists (CDI) and [facility] Coding Staff appreciate your assistance in clarifying documentation. Please respond to the clarification below the line at the bottom and electronically sign. The CDI & [facility] Coding staff will review the response and follow-up if needed. Please note: Queries are made part of the Legal Health Record. If you have any questions, please contact the author of this message via ITS. Doctor/Provider: Piotr Gutiérrez Sepsis is documented in 01/28 pn which may lack sufficient clinical evidence/support in the medical record. Additional clarification is requested. History/Risk Factors: Patient is a 79-year-old male who presents emergency department complaining of urinary complaints. Has ahistory of chronic UTIs,suspectedrectal vesicular fistula. Has a history ofcolostomyas well asCKD. Was sent in by his PCP for urinary complaints. Clinical Indicators: Consult 01/23 - On presentation to the hospital patient was afebrilepatient was nottachycardic hypotensiveorhypoxiche did have a white count of 8. 99 creatinine is 2. 57 electrolytes has been normal liver enzymes are normal urine has been positive influenzaRSVCOVID testing was negativepatient was started on cefepime infectious diseasewas consulted for further management of antibiotictherapy Consult on 01/24 -Acute kidney injury, mostly related tovolume depletion, improving with IV hydration . Chronic kidney disease stage IVwith baseline creatinine around 2 milligrams per deciliter etiology is previous episodes ofacute kidney injuryandchronic use of NSAIDsand high doses of acetaminophen . UTIwith urine culture currentlypending PN 01/25 -Acuteurinary tract infectionwithcystitisandrecurrent urinary tract infection, possibly secondary tocolovesicalfistula. Thebarium enemashowed no activefistulaat this time. Gram-negativebacillifrom the urine. PN 01/28 -Acute kidney injurysecondary toATNsecondary tosevere sepsis. Improved. Chronic kidney disease stage IVwith baseline creatinine 2-2. 5. Metabolic acidosissecondary toacute kidney injuryand GI losses. On oral bicarb. Receives IV bicarb 3 times a week outpatient. Treatment: Continue with antibiotics Follow-upon urine cultures Add aranesp foranemia. After work up and study, please clarify which diagnosis is most appropriate? [ ] Sepsis ruled out [ ] Sepsis treated prophylactically [ ] Sepsis is a valid diagnosis and poa Y as evidence by the following: (Please add rationale): [ ] Sepsis is a valid diagnosis and poa N as evidence by the following: (Please add rationale): [ ] Non-Infectious SIRS due to (please specify) [ ] Non-infectious SIRS due to with organ dysfunction as evidenced by [list organ dysfunction] [ ] Other, please specify [ ] Unable to determine (Template Last Reviewed: September 2023) Sepsis ruled out MTDD
--- NOTE | 2025-02-01 00:31 | P.DS ---
Providers Date of admission: 01/23/25 16:57 Expected date of discharge: 01/28/25 Attending physician: Piotr Gutiérrez Consults: 01/23/25 16:55 Consult Physician Routine Consulting Provider: Marci Miller Consult Reason/Comments: ckd Do you want consulting provider notified?: Yes 01/23/25 16:59 Consult Physician Routine Consulting Provider: Faisal Holland Consult Reason/Comments: uti Do you want consulting provider notified?: Yes 01/23/25 17:00 Consult Physician Routine Consulting Provider: Faisal Holland Consult Reason/Comments: uti Do you want consulting provider notified?: Yes 01/23/25 23:39 Consult Physician Routine Consulting Provider: Psychiatry - [facility] Consult Reason/Comments: future suicidal plan "if things do not get better" Do you want consulting provider notified?: Already Contacted 01/28/25 08:22 Consult Physician Routine Consulting Provider: Elder Ramirez Consult Reason/Comments: Chest port site redness and non working Do you want consulting provider notified?: Yes Primary care physician: Syeda Leahy Hospital Course: Final diagnosis Acute urinary tract infection with cystitis with recurrent urinary tract infection, present on admission, 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 Patient will follow-up with Dr. Leahy in the outpatient setting upon discharge. Patient is to continue with IV antibiotics per infectious disease with close outpatient follow-up with urology as scheduled. Patient to follow-up with nephrology as well. Total time taken is greater than 35 minutes. Hospital course This is a 79-year-old male who was recently admitted with history of recurrent UTIs with concerns of acute urinary tract infection with cystitis with multiple consultations following. Nephrology as well as infectious disease following and urine cultures finalized showing Enterobacter cloque. Patient has history of this previously and has had recurrent UTIs with cystitis in the outpatient setting. There was concerns of possible colovesical fistula although imaging did not reveal an active fistula. Patient has been cleared by consultations and will receive continued IV antibiotics through the [facility] and continued IV infusions with close outpatient follow-up with nephrology as well as urology. Patient reports feeling improved and would like to go home. Please refer to other consultation notes for further HPI. Currently no reports of chest pain, shortness of breath, or palpitations. Patient is afebrile. No reports of nausea or vomiting and patient is tolerating diet. Patient will be discharged home today. Guarded prognosis and high risk for readmissions. Physical exam: Gen: This is a 79-year-old male who is awake, alert and oriented x 3, well- developed, elderly appearing HEENT: Head is atraumatic, normocephalic. Pupils equal, round. Sclerae is anicteric. NECK: Supple. No JVD. No lymphadenopathy. No thyromegaly. LUNGS: Diminished breath sounds bilaterally otherwise clear to auscultation. No wheezes or rhonchi. No intercostal retractions. HEART: S1, S2 are muffled ABDOMEN: Soft. Thin. Ostomy noted. Bowel sounds are present. No masses. No tenderness. EXTREMITIES: No pedal edema. No calf tenderness. NEUROLOGICAL: Patient is awake, alert and oriented x3. Cranial nerves 2 through 12 are grossly intact. Please refer to medication reconciliation sheet for a list of medications. The impression and plan of care has been dictated by Barbi Feng, Nurse Practitioner as directed. Dr. Brock MD I have performed a history and examination and MDM of this patient, discussed the same with the dictator, and agree with the dictator's assessment and plan as written ,documented as a scribe. Based on total visit time, I have performed more than 50% of the visit. Patient Condition at Discharge: Stable Plan - Discharge Summary New Discharge Prescriptions: New Folic Acid 1 mg PO DAILY@1200 tab Cefepime [Maxipime] 1 gm IVPB Q12H each Multivitamins, Thera [Multivitamin (formulary)] 1 each PO DAILY@1200 tab Thiamine [Vitamin B-1] 100 mg PO BID-W/MEALS tab Continue diazePAM [Valium] 5 mg PO HS Pregabalin 25 mg PO TID Sodium Bicarbonate Tab 1,300 mg PO TID Sodium Zirconium Cyclosilicate [Lokelma] 10 gm PO DAILY 2 Days #2 packet Cyanocobalamin/Cobamamide [Vitamin B-12 5,000 Mcg Tab Sl] 2 tab SL DAILY allopurinoL 300 mg PO DAILY Acetaminophen [Tylenol 8 Hour] 1,300 mg PO TID Darbepoetin Arias [Aranesp] 40 mcg SQ FR Discharge Medication List Pregabalin 25 mg PO TID 10/26/24 [History] allopurinoL 300 mg PO DAILY 10/26/24 [History] diazePAM [Valium] 5 mg PO HS 10/26/24 [History] Acetaminophen [Tylenol 8 Hour] 1,300 mg PO TID 10/27/24 [History] Sodium Bicarbonate Tab 1,300 mg PO TID 10/27/24 [History] Sodium Zirconium Cyclosilicate [Lokelma] 10 gm PO DAILY 2 Days #2 packet 11/05/24 [Rx] Cyanocobalamin/Cobamamide [Vitamin B-12 5,000 Mcg Tab Sl] 2 tab SL DAILY 01/23/25 [History] Darbepoetin Arias [Aranesp] 40 mcg SQ FR 01/23/25 [History] Cefepime [Maxipime] 1 gm IVPB Q12H each 01/28/25 [Rx] Folic Acid 1 mg PO DAILY@1200 tab 01/28/25 [Rx] Multivitamins, Thera [Multivitamin (formulary)] 1 each PO DAILY@1200 tab 01/28/25 [Rx] Thiamine [Vitamin B-1] 100 mg PO BID-W/MEALS tab 01/28/25 [Rx] Follow up Appointment(s)/Referral(s): Syeda Leahy MD [Primary Care Provider] - 01/31/25 11:15 am [facility], [REFERRING] - As Needed (Will deliver IV antibiotics and supplies to home this evening between 6-8p.) [facility] Nurse, [NON-STAFF] - As Needed Patient Instructions/Handouts: Urinary Tract Infection in Men (DC) Activity/Diet/Wound Care/Special Instructions: Activity limited until follow-up Follow-up with primary care provider on discharge Follow-up with urology outpatient Continue with IV antibiotics per ID recommendations for 7 days Discharge Disposition: HOME WITH HOME HEALTH SERVICES
== END 2025-01-28 17:01 | disposition home health service (06) | DRG 689 ==
LOC: EC 12:30 → 4SSUR 16:56 → OBSVTOIN 16:57 → 4SSUR 17:34
PROVIDERS: ADMIT Hospitalist; ATTEND Hospitalist
DX: N30.90 Cystitis, unspecified without hematuria (principal); N17.0 Acute kidney failure with tubular necrosis; E87.20 Acidosis, unspecified; T82.514A Breakdown (mechanical) of infusion catheter, initial encounter; D63.1 Anemia in chronic kidney disease; N18.4 Chronic kidney disease, stage 4 (severe); Z93.3 Colostomy status; B96.89 Other specified bacterial agents as the cause of diseases classified elsewhere; F43.20 Adjustment disorder, unspecified; E86.0 Dehydration; Z79.899 Other long term (current) drug therapy; Z87.891 Personal history of nicotine dependence; Z85.038 Personal history of other malignant neoplasm of large intestine; Z87.440 Personal history of urinary (tract) infections
CPT/HCPCS: 36415; 74270; 80048; 80053; 81001; 85025; 87040; 87077; 87086; 87186; 87636; 96361; 96365; 99285

== ENCOUNTER → 2025-03-28 | Outpatient (CLI) | payer MEDICARE ==
--- NOTE | 2025-03-28 13:28 | CT ---
EXAMINATION TYPE: CT abdomen pelvis wo con DATE OF EXAM: 03/28/2025 COMPARISON: 10/27/2024 CLINICAL INDICATION: Male, 79 years old with history of C64.1 renal ca; PHH, kidney cancer, disorder of the urinary system TECHNIQUE: CT scan of the abdomen and pelvis is performed without oral or IV contrast. CT DLP: [address] CTDI: mGy Automated exposure control for dose reduction was used. FINDINGS: Within the limitations of a non-contrast study, the following observations are made. The lungs are clear. Gallbladder is normal and there is no gallstone, wall thickening, pericholecystic fluid or distention . There is no biliary ductal dilatation. There is no organomegaly of the liver, pancreas, spleen or adrenal glands. There are bilateral renal vascular calcifications. In the right lateral renal cortex, is stable coarse calcification associated with a fat containing ma ss consistent with prior treatment. There are stable right renal cysts. The caliber of the abdominal aorta is normal and there is no retroperitoneal adenopathy or hemorrhage . There is a right lower quadrant ostomy unchanged. The bowel loops are normal in caliber is no evidenc e of obstruction. No inflammatory changes are identified in the mesentery and there is no free intrap eritoneal air or fluid. There is no pelvic mass, free fluid, abscess or adenopathy. There is moderate prostatic hypertrophy w ith prostatic calcification. There are no destructive osseous lesions. IMPRESSION: 1. Stable right renal cysts and posttreatment changes in the right kidney. 2. No acute changes within the abdomen or pelvis. 3. No evidence of recurrent or metastatic disease. [facility], , 03/28/2025 1:26 PM
== END | disposition home or self-care (01) ==
LOC: RADCTMAIN 12:41
PROVIDERS: ATTEND Urology
DX: C64.1 Malignant neoplasm of right kidney, except renal pelvis (principal); N39.9 Disorder of urinary system, unspecified; N28.1 Cyst of kidney, acquired
CPT/HCPCS: 74176